=== PATIENT | male | born 1985 | race Two or more races ===

== ENCOUNTER 2022-06-19 06:39 | Inpatient (IN) | payer BC, OTHER ==
[~2022-06-19] VITALS: Ht 193 cm; Wt 155.0 kg
[2022-06-19 07:51] LABS: Eosinophils # (auto) 0 10 ^3/uL (0-0.8); Eosinophils % (auto) 0.3 % (0.0-7.0); Hemoglobin 15.4 g/dL (13.5-17.5); Monocytes # (auto) 0.6 10 ^3/uL (0-1.3); Neutrophils # (auto) 5.1 10 ^3/uL (1.6-8.6); Nucleated Red Blood Cells % 0.2 %; White Blood Cell 6.8 10^3/uL (4.4-10.8)
[2022-06-19 07:53] LABS: Basophils # (auto) 0 10 ^3/uL (0-0.2); Basophils % (auto) 0.6 % (0.0-2.0); Hematocrit 45.6 % (41.0-53.0); Mean Corpuscular Hemoglobin 37.1 pg (28.0-32.0); Mean Corpuscular Hgb Conc. 33.7 g/dL (32.0-36.0); Mean Corpuscular Volume 110.1 fL (80.0-100.0); Monocytes % (auto) 8.8 % (0.0-12.0); Neutrophils % (auto) 75.3 % (37.0-80.0); Red Blood Cells 4.14 10^6/uL (4.5-5.90)
[2022-06-19 07:58] LABS: Albumin 2.9 g/dL (3.4-5.0); Calcium 8.9 mg/dL (8.5-10.1); Potassium 3.6 mmol/L (3.5-5.1); Red Cell Distribution Width 20.3 % (11.8-14.3)
[2022-06-19] MEDS ORDERED: LACTATED RINGER'S 1,000 ML IV ONE (08:00)
[2022-06-19] MEDS ORDERED: PANTOPRAZOLE 40mg/50ML NS AE 50 ML IV ONE (08:00)
[2022-06-19] MEDS ORDERED: PANTOPRAZOLE 40 MG/10 ML VIAL INJ IV ONE (08:00)
[2022-06-19] MEDS ORDERED: cefTRIAXone 1GM/50ML D5W 50 ML IV ONE (08:00)
[2022-06-19] MEDS ORDERED: MAALOX PLUS or MAALOX 30 ML PO ONE (08:00)
[2022-06-19] MEDS ORDERED: ONDANSETRON HCL 4 MG/2 ML VIAL IV ONE (08:00)
[2022-06-19] MEDS ORDERED: LIDOCAINE VISCOUS 2% 15ML UD PO ONE (08:00)
[2022-06-19] MEDS ORDERED: FAMOTIDINE (10MG/ML) 2ML VL IV ONE ×2 (08:00→10:07)
[2022-06-19 08:01] LABS: Bilirubin, Total 2.3 mg/dL (0.2-1.0); Total Protein 6.5 g/dL (6.4-8.2)
[2022-06-19] MEDS ORDERED: DexAMETHasone SOD PHOS 10MG/1ML VIAL INJ IV ONE (08:15)
[2022-06-19] MEDS ORDERED: IPRATROPIUM BROM 0.5 MG/2.5ML INH SOL NEB ONE (08:15)
[2022-06-19] MEDS ORDERED: ALBUTEROL SULF 2.5 MG/0.5ML(0.5%) NEB SOLN NEB ONE (08:15)
[2022-06-19] MEDS ORDERED: ALBUTEROL MEDNEB 2.5 mg/3ml NEB ONE (08:45)
[2022-06-19 08:47] LABS: INR 1.13 (0.9-1.15); Partial Thromboplastin Time 29.4 sec (24.6-33.4)
[2022-06-19 08:59] LABS: Urine Bacteria NONE SEEN /hpf (None Seen); Urine Blood Negative /uL (Negative); Urine WBC <1 /hpf (0 - 3)
[2022-06-19] MEDS ORDERED: chlordiazePOXIDE HCL 25 MG CAP PO ONE (11:45)
[2022-06-19] MEDS ORDERED: LORazepam 2MG/ML-1ML VIAL IV ONE (11:45)
[2022-06-19] MEDS ORDERED: PANTOPRAZOLE IV ONE (12:37)
[2022-06-19] MEDS ORDERED: NS AE IV ONE (12:37)
[2022-06-19] MEDS ORDERED: NITROGLYCERIN 0.4 MG SL TAB SL PRN (13:15)
[2022-06-19] MEDS ORDERED: MORPHINE SULFATE INJ 2 MG/ml SYRG IV PRN (13:15)
[2022-06-19] MEDS ORDERED: FUROSEMIDE 20 MG/2 ML VIAL IV SCH (13:30)
[2022-06-19] MEDS ORDERED: FOLIC ACID 1 MG TAB PO ONE (13:30)
[2022-06-19] MEDS ORDERED: LORazepam 2MG/ML-1ML VIAL IV PRN (13:30)
[2022-06-19] MEDS ORDERED: MULTIPLE VITAMIN TAB PO ONE (13:30)
[2022-06-19] MEDS ORDERED: hydrALAZINE HCL 20 MG/ML VL IV PRN (13:45)
[2022-06-19] MEDS ORDERED: IOHEXOL 350 MG/ML 100ML IJ ONE (13:53)
[2022-06-19] MEDS: chlordiazePOXIDE HCL 25 MG CAP PO SCH ×2 (14:02→22:11)
[2022-06-19] MEDS: LACTATED RINGER'S 1,000 ML IV SCH ×2 (14:04→21:30)
[2022-06-19] MEDS: POTASSIUM CHL 10 Meq TABLET PO SCH (14:05)
[2022-06-19 14:24] LABS: Amphetamine Screen, Urine NEGATIVE (NEGATIVE); Barbiturate Scree,Urine NEGATIVE (NEGATIVE); Benzodiazephine Screen, Urine NEGATIVE (NEGATIVE); Cannabinoid Screen, Urine NEGATIVE (NEGATIVE); Cocaine Screen, Urine NEGATIVE (NEGATIVE); Opiate Scree,Urine NEGATIVE (NEGATIVE); Phencyclidine Screen, Urine NEGATIVE (NEGATIVE)
[2022-06-19 19:51] LABS: Cholesterol 193 mg/dL (< 200); Triglycerides 63 mg/dL (< 150)
[2022-06-19 19:54] LABS: HDL Cholesterol 119 mg/dL (40-59); LDL Cholesterol 67 mg/dL (< 100)
[2022-06-20] MEDS: chlordiazePOXIDE HCL 25 MG CAP PO SCH ×3 (05:44→22:55)
[2022-06-20] MEDS: LACTATED RINGER'S 1,000 ML IV SCH ×2 (05:48→10:56)
[2022-06-20 06:13] LABS: Basophils # (auto) 0 10 ^3/uL (0-0.2); Basophils % (auto) 0.2 % (0.0-2.0); Eosinophils # (auto) 0 10 ^3/uL (0-0.8); Lymphocytes # (auto) 0.7 10 ^3/uL (0.4-5.4); Monocytes # (auto) 0.8 10 ^3/uL (0-1.3); Neutrophils # (auto) 6.1 10 ^3/uL (1.6-8.6); White Blood Cell 7.6 10^3/uL (4.4-10.8)
[2022-06-20 06:14] LABS: Hematocrit 48.1 % (41.0-53.0); Hemoglobin 16.3 g/dL (13.5-17.5); Lymphocytes % (auto) 9.3 % (10.0-50.0); Mean Corpuscular Hemoglobin 37.3 pg (28.0-32.0); Mean Corpuscular Hgb Conc. 33.9 g/dL (32.0-36.0); Monocytes % (auto) 10.2 % (0.0-12.0); Neutrophils % (auto) 80.3 % (37.0-80.0); Nucleated Red Blood Cells % 0.1 %; Red Blood Cells 4.37 10^6/uL (4.5-5.90)
[2022-06-20 06:24] LABS: Red Cell Distribution Width 20.2 % (11.8-14.3)
[2022-06-20 06:32] LABS: Albumin 2.9 g/dL (3.4-5.0); Calcium 8.4 mg/dL (8.5-10.1)
[2022-06-20 06:36] LABS: BUN/Creatinine Ratio 10.4; Bilirubin, Total 2.1 mg/dL (0.2-1.0); Total Protein 6.5 g/dL (6.4-8.2)
[2022-06-20] MEDS ORDERED: LISINOPRIL 10 MG TAB PO SCH (10:00)
[2022-06-20] MEDS ORDERED: ENOXAPARIN SOD 40 MG/0.4 ML SYRINGE SC SCH (10:00)
[2022-06-20] MEDS: PANTOPRAZOLE 40 MG/10 ML VIAL INJ IV SCH ×2 (10:54→22:55)
[2022-06-20] MEDS: POTASSIUM CHL 10 Meq TABLET PO SCH (10:55)
[2022-06-20] MEDS: THIAMINE HCL 100 MG TAB PO SCH (10:55)
[2022-06-20 13:47] VITALS: BP 113/87
[2022-06-20] MEDS ORDERED: BENA10TA15 PO (14:07)
[2022-06-20] MEDS ORDERED: AML5T PO (14:07)
[2022-06-20] MEDS: SUCRALFATE 1 GM/10 ML ORAL SUSP PO SCH ×2 (19:10→22:55)
[2022-06-20 22:00] VITALS: BP 112/74
[2022-06-20] MEDS: CARVEDILOL 3.125 MG TAB PO SCH (22:54)
[2022-06-21] VITALS (8 sets, daily range): BP systolic 103–121; BP diastolic 72–90
[2022-06-21] MEDS: LACTATED RINGER'S 1,000 ML IV SCH (02:40)
[2022-06-21] MEDS: SUCRALFATE 1 GM/10 ML ORAL SUSP PO SCH ×4 (08:10→22:56)
[2022-06-21] MEDS: PANTOPRAZOLE 40 MG/10 ML VIAL INJ IV SCH ×2 (11:29→22:56)
[2022-06-21] MEDS: POTASSIUM CHL 10 Meq TABLET PO SCH (11:30)
[2022-06-21] MEDS: THIAMINE HCL 100 MG TAB PO SCH (11:30)
[2022-06-21] MEDS: chlordiazePOXIDE HCL 25 MG CAP PO SCH ×2 (11:30→22:57)
[2022-06-21] MEDS: LISINOPRIL 5 MG TAB PO SCH (11:30)
[2022-06-21] MEDS: CARVEDILOL 3.125 MG TAB PO SCH ×2 (11:31→22:57)
[2022-06-21 14:16] LABS: Hepatitis C Antibody Negative (Negative)
[2022-06-21 14:26] LABS: Hepatitis B Surface Antibody Positive (Negative)
[2022-06-21] MEDS: FUROSEMIDE 20 MG TAB PO SCH (15:03)
[2022-06-22 05:00] VITALS: BP 112/58
[2022-06-22] MEDS: SUCRALFATE 1 GM/10 ML ORAL SUSP PO SCH ×4 (06:18→23:08)
[2022-06-22] MEDS ORDERED: chlordiazePOXIDE HCL 25 MG CAP PO SCH (07:00)
[2022-06-22 08:00] VITALS: BP 133/84
[2022-06-22 09:00] VITALS: BP 133/84
[2022-06-22] MEDS: THIAMINE HCL 100 MG TAB PO SCH (09:29)
[2022-06-22] MEDS: PANTOPRAZOLE 40 MG/10 ML VIAL INJ IV SCH ×2 (09:29→23:08)
[2022-06-22] MEDS: FUROSEMIDE 20 MG TAB PO SCH (09:30)
[2022-06-22] MEDS: CARVEDILOL 3.125 MG TAB PO SCH ×2 (09:31→23:15)
[2022-06-22] MEDS: POTASSIUM CHL 10 Meq TABLET PO SCH (09:31)
[2022-06-22] MEDS: LISINOPRIL 5 MG TAB PO SCH (09:31)
[2022-06-22 13:00] VITALS: BP 105/74
[2022-06-22 16:42] VITALS: BP 113/66
[2022-06-23 00:33] VITALS: BP 138/72
[2022-06-23 04:48] VITALS: BP 124/87
[2022-06-23] MEDS: SUCRALFATE 1 GM/10 ML ORAL SUSP PO SCH ×4 (06:30→22:21)
[2022-06-23 09:00] VITALS: BP 116/79
[2022-06-23] MEDS: POTASSIUM CHL 10 Meq TABLET PO SCH (09:17)
[2022-06-23] MEDS: PANTOPRAZOLE 40 MG/10 ML VIAL INJ IV SCH ×2 (09:17→22:21)
[2022-06-23] MEDS: FOLIC ACID 1 MG TAB PO SCH (09:17)
[2022-06-23] MEDS: THIAMINE HCL 100 MG TAB PO SCH (09:18)
[2022-06-23] MEDS: LISINOPRIL 5 MG TAB PO SCH (09:26)
[2022-06-23] MEDS: FUROSEMIDE 20 MG TAB PO SCH (09:26)
[2022-06-23] MEDS: CARVEDILOL 3.125 MG TAB PO SCH ×2 (09:26→22:26)
[2022-06-23 13:00] VITALS: BP 104/68
[2022-06-23 17:00] VITALS: BP 104/70
[2022-06-23 22:00] VITALS: BP 114/76
[2022-06-24 05:00] VITALS: BP 116/82
[2022-06-24] MEDS: SUCRALFATE 1 GM/10 ML ORAL SUSP PO SCH (06:16)
[2022-06-24 09:00] VITALS: BP 113/82
[2022-06-24] MEDS: FOLIC ACID 1 MG TAB PO SCH (09:54)
[2022-06-24] MEDS: LISINOPRIL 5 MG TAB PO SCH (09:54)
[2022-06-24] MEDS: PANTOPRAZOLE 40 MG/10 ML VIAL INJ IV SCH (09:54)
[2022-06-24] MEDS: THIAMINE HCL 100 MG TAB PO SCH (09:54)
[2022-06-24] MEDS: POTASSIUM CHL 10 Meq TABLET PO SCH (09:54)
[2022-06-24] MEDS: FUROSEMIDE 20 MG TAB PO SCH (09:55)
[2022-06-24] MEDS: CARVEDILOL 3.125 MG TAB PO SCH (09:55)
[2022-06-24] MEDS ORDERED: FURO1TAB33 PO (10:08)
[2022-06-24] MEDS ORDERED: PANT40T PO (10:08)
[2022-06-24] MEDS ORDERED: FOLI1TAB6 PO (10:08)
[2022-06-24] MEDS ORDERED: CARV6.25 PO (10:08)
[2022-06-24] MEDS ORDERED: THIA100T5 PO (10:08)
[2022-06-24] MEDS ORDERED: SUCR1TAB PO (10:08)
[2022-06-24] MEDS ORDERED: LISI20TA28 PO (10:08)
[2022-06-24 10:44] VITALS: BP 128/83
[2022-06-25 12:10] LABS: Hepatitis A Total Antibody Negative (Negative)
== END 2022-06-24 11:30 | disposition home or self-care (01) | DRG 391 ==
LOC: ER 06:39 → TELE 13:13 → EAST 06-20 15:08 → TELE-WESTW 06-20 20:16
PROVIDERS: ADMIT Registered Nurse; ATTEND Nurse Practitioner Acute Care
PROC: 5A09357 Assistance with Respiratory Ventilation, Less than 24 Consecutive Hours, Continuous Positive Airway Pressure (ICD-10-PCS; principal; 2022-06-19)
DX: K21.00 Gastro-esophageal reflux disease with esophagitis, without bleeding (principal); I50.21 Acute systolic (congestive) heart failure; K92.0 Hematemesis; I42.6 Alcoholic cardiomyopathy; I42.0 Dilated cardiomyopathy; Z68.41 Body mass index [BMI] 40.0-44.9, adult; I11.0 Hypertensive heart disease with heart failure; E66.01 Morbid (severe) obesity due to excess calories; Z20.822 Contact with and (suspected) exposure to COVID-19; K76.0 Fatty (change of) liver, not elsewhere classified; Y90.1 Blood alcohol level of 20-39 mg/100 ml; F10.129 Alcohol abuse with intoxication, unspecified
CPT/HCPCS: 36415; 71045; 71260; 74177; 76705; 80053; 80061; 80307; 81001; 82977; 83036; 83690; 83735; 83880; 84443; 84484; 85025; 85610; 85730; 86704; 86706; 86708; 86803; 86850; 86900; 86901; 87340; 87426; 93005; 93306; 94640; 96365; 96366; 96374; C9113; G0378; J0696; J1100; J2405; J3490

== ENCOUNTER 2022-10-05 19:00 | Inpatient (IN) | payer BC ==
[~2022-10-05] VITALS: Ht 188 cm; Wt 150.0 kg
[~2022-10-05 19:00] MED LIST: AML5T PO; BENA10TA15 PO; CARV6.25 PO; FOLI1TAB6 PO; FURO1TAB33 PO; LISI20TA28 PO; PANT40T PO; SUCR1TAB PO; THIA100T5 PO
[2022-10-05] MEDS ORDERED: LORazepam 2MG/ML-1ML VIAL IV ONE (20:00)
[2022-10-05 20:08] LABS: Basophils # (auto) 0.1 10 ^3/uL (0-0.2); Basophils % (auto) 1.3 % (0.0-2.0); Eosinophils # (auto) 0.1 10 ^3/uL (0-0.8); Eosinophils % (auto) 1.8 % (0.0-7.0); Hematocrit 44.9 % (41.0-53.0); Hemoglobin 15.7 g/dL (13.5-17.5); Lymphocytes # (auto) 1.4 10 ^3/uL (0.4-5.4); Mean Corpuscular Hemoglobin 33.7 pg (28.0-32.0); Mean Corpuscular Volume 96.2 fL (80.0-100.0); Monocytes # (auto) 0.9 10 ^3/uL (0-1.3); Neutrophils % (auto) 61.9 % (37.0-80.0); Nucleated Red Blood Cells % 0.1 %; Red Blood Cells 4.67 10^6/uL (4.5-5.90); Red Cell Distribution Width 17.6 % (11.8-14.3); White Blood Cell 6.4 10^3/uL (4.4-10.8)
[2022-10-05 20:22] LABS: INR 1.01 (0.9-1.15); Partial Thromboplastin Time 27.3 sec (24.6-33.4)
[2022-10-05 20:32] LABS: Albumin 3.5 g/dL (3.4-5.0); Anion Gap 7 (5-15); BUN/Creatinine Ratio 15.5 (10.0-20.0); Blood Urea Nitrogen 16 mg/dL (7-18); Calcium 9.2 mg/dL (8.5-10.1); Carbon Dioxide 28 mmol/L (21-32); Chloride 104 mmol/L (98-107); GFR African American 106 mL/min; GFR Non-African American 87 mL/min; Glucose 88 mg/dL (74-106); Magnesium 1.6 mg/dL (1.6-2.6); Potassium 3.1 mmol/L (3.5-5.1); Sodium 139 mmol/L (136-145)
[2022-10-05 20:35] LABS: Alanine Aminotransferase 191 U/L (16-61); Alkaline Phosphatase 74 U/L (45-117); Aspartate Aminotransferase 237 U/L (15-37); Blood Alcohol < 3.0 mg/dL (0-5); Total Protein 7.8 g/dL (6.4-8.2)
[2022-10-05] MEDS ORDERED: POTASSIUM EFFERVESENT TAB 25 MEQ PO ONE (21:15)
[2022-10-05] MEDS ORDERED: SODIUM CHLORIDE 0.9% 4,500 ML IV ONE (21:45)
[2022-10-05] MEDS ORDERED: SODIUM CHLORIDE 0.9% 1,000 ML IV SCH (23:15)
[2022-10-05] MEDS ORDERED: HYDROcodone-ACET 5/325MG TAB PO PRN (23:15)
[2022-10-05] MEDS ORDERED: IBUPROFEN 600 MG TAB PO PRN (23:15)
[2022-10-05] MEDS ORDERED: DOCUSATE SOD 100 MG CAP PO PRN (23:15)
[2022-10-05] MEDS ORDERED: MORPHINE SULFATE INJ 2 MG/ml SYRG IV PRN (23:15)
[2022-10-05] MEDS ORDERED: ONDANSETRON HCL 4 MG/2 ML VIAL IV PRN (23:15)
[2022-10-05] MEDS ORDERED: hydrALAZINE HCL 20 MG/ML VL IV PRN (23:15)
[2022-10-06] MEDS ORDERED: MORPHINE SULFATE INJ 2 MG/ml SYRG IV PRN
[2022-10-06] MEDS ORDERED: NITROGLYCERIN 0.4 MG SL TAB SL PRN
[2022-10-06 03:01] LABS: Urine Bacteria NONE SEEN /hpf (None Seen); Urine Blood Negative /uL (Negative); Urine Hyaline Cast FEW /lpf (0 - 2); Urine WBC <1 /hpf (0 - 3)
[2022-10-06 03:07] LABS: Alcohol, Urine < 3.0 mg/dL (0-10)
[2022-10-06] MEDS ORDERED: chlordiazePOXIDE HCL 5 MG CAP PO PRN (03:15)
[2022-10-06] MEDS ORDERED: chlordiazePOXIDE HCL 25 MG CAP PO ONE ×2 (03:15→06:00)
[2022-10-06 03:18] LABS: Amphetamine Screen, Urine NEGATIVE (NEGATIVE); Barbiturate Scree,Urine NEGATIVE (NEGATIVE); Benzodiazephine Screen, Urine NEGATIVE (NEGATIVE); Cannabinoid Screen, Urine POSITIVE (NEGATIVE); Cocaine Screen, Urine NEGATIVE (NEGATIVE); Opiate Scree,Urine NEGATIVE (NEGATIVE); Phencyclidine Screen, Urine NEGATIVE (NEGATIVE)
[2022-10-06] MEDS ORDERED: MVI in SODIUM CHLORIDE 0.9% 1,010 ML ONE (03:19)
[2022-10-06] MEDS: LORazepam 2MG/ML-1ML VIAL IV PRN ×2 (03:34→11:13)
[2022-10-06] MEDS ORDERED: ONDANSETRON HCL 4 MG/2 ML VIAL IV ONE (06:00)
[2022-10-06] MEDS ORDERED: LORazepam 2MG/ML-1ML VIAL IV ONE (06:00)
[2022-10-06] MEDS ORDERED: LORazepam 2MG/ML-1ML VIAL IV PRN (06:00)
[2022-10-06 06:09] LABS: Potassium 3.9 mmol/L (3.5-5.1)
[2022-10-06 06:18] LABS: Albumin 3.7 g/dL (3.4-5.0); BUN/Creatinine Ratio 13.6 (10.0-20.0); Calcium 9.2 mg/dL (8.5-10.1); Total Protein 8.1 g/dL (6.4-8.2)
[2022-10-06] MEDS: LORazepam 0.5 MG TAB PO SCH ×2 (06:20→09:31)
[2022-10-06 06:27] LABS: Basophils # (auto) 0.1 10 ^3/uL (0-0.2); Eosinophils # (auto) 0.1 10 ^3/uL (0-0.8); Lymphocytes # (auto) 1.8 10 ^3/uL (0.4-5.4); Monocytes # (auto) 0.7 10 ^3/uL (0-1.3); Neutrophils # (auto) 3.4 10 ^3/uL (1.6-8.6)
[2022-10-06 06:32] LABS: Basophils % (auto) 1.1 % (0.0-2.0); Eosinophils % (auto) 1.6 % (0.0-7.0); Hemoglobin 14.8 g/dL (13.5-17.5); Mean Corpuscular Hemoglobin 33.9 pg (28.0-32.0); Mean Corpuscular Hgb Conc. 35.3 g/dL (32.0-36.0); Monocytes % (auto) 11.1 % (0.0-12.0); Neutrophils % (auto) 56.2 % (37.0-80.0); Nucleated Red Blood Cells % 0.4 %; Red Blood Cells 4.38 10^6/uL (4.5-5.90); Red Cell Distribution Width 17.6 % (11.8-14.3)
[2022-10-06] MEDS ORDERED: amLODIPine BESYLATE 5 MG TAB PO SCH (10:00)
[2022-10-06] MEDS ORDERED: FAMOTIDINE (10MG/ML) 2ML VL IV SCH (10:00)
[2022-10-06] MEDS ORDERED: FOLIC ACID 1 MG TAB PO SCH (10:00)
[2022-10-06] MEDS ORDERED: ASPirin 81 mg TAB PO SCH (10:00)
[2022-10-06] MEDS ORDERED: THIAMINE HCL 100 MG TAB PO SCH (10:00)
[2022-10-06] MEDS ORDERED: MULTIPLE VITAMIN TAB PO SCH (10:00)
[2022-10-06] MEDS ORDERED: POTA10TA51 PO (11:21)
[2022-10-06] MEDS ORDERED: SACU1TAB PO (11:21)
[2022-10-06 11:35] VITALS: BP 115/58
[2022-10-06] MEDS ORDERED: FOLIC ACID 1 MG, MULTIPLE VITAMIN 10 ML, MAGNESIUM SULF SDV 50% 8 MEQ, THIAMINE INJ 100... INJ SCH ×5 (12:00)
[2022-10-06] MEDS ORDERED: CYCL-614 PO (16:18)
[2022-10-06] MEDS ORDERED: ATORVASTATIN 20 MG TAB PO SCH (22:00)
== END 2022-10-06 14:13 | disposition home or self-care (01) | DRG 313 ==
LOC: EDBD 19:00 → ER 19:00 → TELE 23:56
PROVIDERS: ADMIT Nurse Practitioner Family; ATTEND Internal Medicine
DX: R07.9 Chest pain, unspecified (principal); F10.231 Alcohol dependence with withdrawal delirium; I42.6 Alcoholic cardiomyopathy; E87.6 Hypokalemia; K21.9 Gastro-esophageal reflux disease without esophagitis; I10 Essential (primary) hypertension
CPT/HCPCS: 36415; 71045; 80053; 80307; 80320; 81001; 83735; 83880; 84484; 85025; 85610; 85730; 96361; 96374; G0378; J2405; J3490

== ENCOUNTER 2023-04-22 01:52 | Inpatient (IN) | payer BC ==
[2023-04-22] VITALS (7 sets, daily range): BP systolic 108–145; BP diastolic 51–85; PULSE 94–123; RESP 16–30; TEMP 97.8–99.6; O2SAT 90–96
[~2023-04-22] VITALS: Ht 188 cm; Wt 140.8 kg
[~2023-04-22 01:52] MED LIST changes: -AML5T PO; -BENA10TA15 PO; +CYCL-614 PO; +FOLI-119 PO; -FOLI1TAB6 PO; -LISI20TA28 PO; +LISI20TA56 PO; +POTA10TA51 PO; +SACU1TAB PO
[2023-04-22] MEDS ORDERED: IOHEXOL 350 MG/ML 100ML IJ ONE (02:27)
[2023-04-22 02:30] LABS: Basophils # (auto) 0.1 10 ^3/uL (0-0.2); Eosinophils # (auto) 0.1 10 ^3/uL (0-0.8); Monocytes # (auto) 0.7 10 ^3/uL (0-1.3); Neutrophils # (auto) 5.2 10 ^3/uL (1.6-8.6); Red Blood Cells 4.26 10^6/uL (4.5-5.90)
[2023-04-22 02:31] LABS: Basophils % (auto) 1.3 % (0.0-2.0); Eosinophils % (auto) 1.3 % (0.0-7.0); Hematocrit 46.6 % (41.0-53.0); Hemoglobin 15.7 g/dL (13.5-17.5); Lymphocytes # (auto) 1.9 10 ^3/uL (0.4-5.4); Lymphocytes % (auto) 23.7 % (10.0-50.0); Mean Corpuscular Hemoglobin 36.9 pg (28.0-32.0); Mean Corpuscular Hgb Conc. 33.7 g/dL (32.0-36.0); Mean Corpuscular Volume 109.4 fL (80.0-100.0); Monocytes % (auto) 8.2 % (0.0-12.0); Neutrophils % (auto) 65.5 % (37.0-80.0); Red Cell Distribution Width 14.8 % (11.8-14.3)
[2023-04-22 02:44] LABS: Alanine Aminotransferase 53 U/L (7-40); Albumin 4.4 g/dL (3.2-4.8); Alkaline Phosphatase 87 U/L (46-116); Anion Gap 11 (5-15); Aspartate Aminotransferase 133 U/L (13-40); BUN/Creatinine Ratio 7.7 (10.0-20.0); Bilirubin, Total 0.8 mg/dL (0.2-1.0); Blood Urea Nitrogen 6 mg/dL (9-23); Calcium 8.4 mg/dL (8.7-10.4); Carbon Dioxide 27 mmol/L (20-30); Chloride 103 mmol/L (98-107); Glucose 116 mg/dL (74-106); Magnesium 1.7 mg/dL (1.6-2.6); Potassium 3.9 mmol/L (3.5-5.1); Sodium 141 mmol/L (136-145); Total Protein 7.4 g/dL (5.7-8.2)
[2023-04-22 03:06] LABS: INR 1.07 (0.9-1.15); Partial Thromboplastin Time 28.5 SEC (24.5-34.5); Prothrombin Time 11.2 sec (9.3-11.8)
[2023-04-22] MEDS ORDERED: NITROGLYCERIN 0.2MG/HR TOPICAL PATCH TD ONE (04:30)
[2023-04-22] MEDS ORDERED: ASPirin 81 mg TAB PO ONE (04:30)
[2023-04-22] MEDS ORDERED: MORPHINE SULFATE 4 MG/ML SYR/VIAL IV PRN (04:30)
[2023-04-22] MEDS ORDERED: PANTOPRAZOLE 40 MG/10 ML VIAL INJ IV ONE (04:30)
[2023-04-22] MEDS ORDERED: ONDANSETRON HCL 4 MG/2 ML VIAL IV ONE (04:30)
[2023-04-22 04:52] LABS: COVID19 ANTIGEN SOFIA FIA NEGATIVE (NEGATIVE); Rapid Influenza A Negative (Negative); Rapid Influenza B Negative (Negative)
[2023-04-22 04:59] LABS: Urine Bacteria NONE SEEN /hpf (None Seen); Urine Blood Negative /uL (Negative); Urine Clarity Clear (Clear); Urine Color Yellow (Yellow); Urine Hyaline Cast MOD /lpf (0 - 2); Urine Mucus FEW (None Seen); Urine Protein, UAD 3+ (Negative); Urine WBC 3 /hpf (0 - 3)
[2023-04-22] MEDS ORDERED: hydrALAZINE HCL 20 MG/ML VL IV PRN (05:00)
[2023-04-22] MEDS ORDERED: ONDANSETRON HCL 4 MG/2 ML VIAL IV PRN (05:00)
[2023-04-22] MEDS ORDERED: IBUPROFEN 600 MG TAB PO PRN (05:00)
[2023-04-22] MEDS ORDERED: DOCUSATE SOD 100 MG CAP PO PRN (05:00)
[2023-04-22 05:03] LABS: Amphetamine Screen, Urine Neg (NEGATIVE); Barbiturate Scree,Urine Neg (NEGATIVE); Benzodiazephine Screen, Urine Neg (NEGATIVE); Cannabinoid Screen, Urine Pos (NEGATIVE); Cocaine Screen, Urine Neg (NEGATIVE); Opiate Scree,Urine Neg (NEGATIVE); Phencyclidine Screen, Urine Neg (NEGATIVE)
[2023-04-22] MEDS ORDERED: FUROSEMIDE 20 MG/2 ML VIAL IV SCH ×3 (06:00→18:00)
[2023-04-22] MEDS ORDERED: ALBUTEROL SULF 2.5 MG/0.5ML(0.5%) NEB SOLN NEB PRN (06:00)
[2023-04-22] MEDS ORDERED: MORPHINE SULFATE INJ 2 MG/ml SYRG IV PRN (06:00)
[2023-04-22] MEDS ORDERED: NITROGLYCERIN 0.4 MG SL TAB SL PRN (06:00)
[2023-04-22 06:26] LABS: Alanine Aminotransferase 50 U/L (7-40); Albumin 4.3 g/dL (3.2-4.8); Alkaline Phosphatase 80 U/L (46-116); Anion Gap 11 (5-15); Aspartate Aminotransferase 115 U/L (13-40); Bilirubin, Total 0.7 mg/dL (0.2-1.0); Calcium 8.5 mg/dL (8.5-10.1); Carbon Dioxide 26 mmol/L (20-30); Chloride 104 mmol/L (98-107); Glucose 105 mg/dL (74-106); Potassium 3.9 mmol/L (3.5-5.1); Sodium 141 mmol/L (136-145); Total Protein 7.3 g/dL (5.7-8.2)
[2023-04-22 06:31] LABS: Blood Urea Nitrogen < 5 mg/dL (9-23)
[2023-04-22] MEDS ORDERED: CARVEDILOL 3.125 MG TAB PO SCH ×2 (10:00→22:00)
[2023-04-22] MEDS ORDERED: PANTOPRAZOLE 40 MG/10 ML VIAL INJ IV SCH (10:00)
[2023-04-22] MEDS ORDERED: ASPirin 81 mg TAB PO SCH (10:00)
[2023-04-22] MEDS ORDERED: DIGOXIN (250MCG/ML) 2 ML AMPULE IV ONE (10:30)
[2023-04-22] MEDS ORDERED: chlordiazePOXIDE HCL 5 MG CAP PO PRN (10:30)
[2023-04-22] MEDS ORDERED: MULTIPLE VITAMIN TAB PO ONE (10:30)
[2023-04-22] MEDS: PANTOPRAZOLE 40mg/50ML NS AE 50 ML IV SCH ×2 (15:16→18:23)
[2023-04-22 16:18] LABS: Hematocrit 44.2 % (41.0-53.0); Hemoglobin 14.8 g/dL (13.5-17.5)
[2023-04-22] MEDS ORDERED: LORazepam 2MG/ML-1ML VIAL IV PRN (17:15)
[2023-04-22] MEDS: ATORVASTATIN 20 MG TAB PO SCH (23:14)
[2023-04-23] VITALS (9 sets, daily range): BP systolic 120–136; BP diastolic 78–95; PULSE 71–103; RESP 17–30; TEMP 98.1–99.8; O2SAT 93–99
[2023-04-23] MEDS: PANTOPRAZOLE 40mg/50ML NS AE 50 ML IV SCH ×2 (00:14→06:07)
[2023-04-23] MEDS ORDERED: TEMAZEPAM 15 MG CAP PO PRN (01:15)
[2023-04-23] MEDS ORDERED: FUROSEMIDE 20 MG/2 ML VIAL IV SCH (06:00)
[2023-04-23 06:26] LABS: Basophils # (auto) 0.1 10 ^3/uL (0-0.2); Eosinophils # (auto) 0 10 ^3/uL (0-0.8); Eosinophils % (auto) 0.2 % (0.0-7.0); Monocytes # (auto) 0.6 10 ^3/uL (0-1.3)
[2023-04-23 06:28] LABS: Basophils % (auto) 0.6 % (0.0-2.0); Hematocrit 44.9 % (41.0-53.0); Hemoglobin 15.3 g/dL (13.5-17.5); Lymphocytes # (auto) 0.9 10 ^3/uL (0.4-5.4); Mean Corpuscular Hgb Conc. 34.1 g/dL (32.0-36.0); Mean Corpuscular Volume 108.4 fL (80.0-100.0); Monocytes % (auto) 7.2 % (0.0-12.0); Nucleated Red Blood Cells % 0.9 %; Red Blood Cells 4.14 10^6/uL (4.5-5.90); Red Cell Distribution Width 14.8 % (11.8-14.3); White Blood Cell 8.6 10^3/uL (4.4-10.8)
[2023-04-23 06:32] LABS: Alanine Aminotransferase 36 U/L (7-40); Albumin 4.5 g/dL (3.2-4.8); Alkaline Phosphatase 80 U/L (46-116); Anion Gap 6 (5-15); Aspartate Aminotransferase 66 U/L (13-40); BUN/Creatinine Ratio 10.8 (10.0-20.0); Bilirubin, Total 2.1 mg/dL (0.2-1.0); Blood Urea Nitrogen 10 mg/dL (9-23); Calcium 9.2 mg/dL (8.7-10.4); Chloride 96 mmol/L (98-107); Glucose 97 mg/dL (74-106); Magnesium 1.1 mg/dL (1.6-2.6); Potassium 4.4 mmol/L (3.5-5.1); Sodium 139 mmol/L (136-145); Total Protein 7.8 g/dL (5.7-8.2)
[2023-04-23 06:52] LABS: Carbon Dioxide 37 mmol/L (20-30)
[2023-04-23] MEDS ORDERED: MULTIPLE VITAMIN TAB PO SCH (10:00)
[2023-04-23] MEDS ORDERED: FOLIC ACID 1 MG, MULTIPLE VITAMIN 10 ML, MAGNESIUM SULF SDV 50% 8 MEQ, THIAMINE INJ 100... INJ SCH ×5 (12:00)
[2023-04-23] MEDS: THIAMINE 100mg/ml INJ (200mg/2ml VIAL) IV SCH (12:27)
[2023-04-23] MEDS: chlordiazePOXIDE HCL 5 MG CAP PO SCH ×3 (12:28→22:00)
[2023-04-23] MEDS: B-COMPLEX W/ C & FOLIC ACID(NEPHROVITE TAB) PO SCH (12:28)
[2023-04-23] MEDS: ATORVASTATIN 20 MG TAB PO SCH (22:00)
[2023-04-23] MEDS: CARVEDILOL 3.125 MG TAB PO SCH (22:01)
[2023-04-23] MEDS: SACUBITRIL-VALSARTAN 24mg/26mg TAB PO SCH (22:17)
[2023-04-24] VITALS (7 sets, daily range): BP systolic 106–144; BP diastolic 68–89; PULSE 72–102; RESP 18–20; TEMP 98–98.4; O2SAT 95–99
[2023-04-24] MEDS: chlordiazePOXIDE HCL 5 MG CAP PO SCH ×2 (06:04→12:19)
[2023-04-24 07:22] LABS: Eosinophils # (auto) 0.1 10 ^3/uL (0-0.8); Hemoglobin 15.9 g/dL (13.5-17.5); Lymphocytes # (auto) 1.1 10 ^3/uL (0.4-5.4); Lymphocytes % (auto) 13.2 % (10.0-50.0); Monocytes # (auto) 0.7 10 ^3/uL (0-1.3)
[2023-04-24 07:24] LABS: Basophils # (auto) 0 10 ^3/uL (0-0.2); Basophils % (auto) 0.6 % (0.0-2.0); Eosinophils % (auto) 0.8 % (0.0-7.0); Hematocrit 46.3 % (41.0-53.0); Mean Corpuscular Hgb Conc. 34.3 g/dL (32.0-36.0); Mean Corpuscular Volume 107.9 fL (80.0-100.0); Monocytes % (auto) 9.2 % (0.0-12.0); Neutrophils # (auto) 6.2 10 ^3/uL (1.6-8.6); Neutrophils % (auto) 76.2 % (37.0-80.0); Nucleated Red Blood Cells % 0.2 %; Red Blood Cells 4.29 10^6/uL (4.5-5.90); Red Cell Distribution Width 14.3 % (11.8-14.3); White Blood Cell 8.1 10^3/uL (4.4-10.8)
[2023-04-24] MEDS ORDERED: PANTOPRAZOLE 40 MG/10 ML VIAL INJ IV SCH (10:00)
[2023-04-24] MEDS ORDERED: FUROSEMIDE 20 MG/2 ML VIAL IV SCH (10:00)
[2023-04-24] MEDS: CARVEDILOL 3.125 MG TAB PO SCH (11:25)
[2023-04-24] MEDS: B-COMPLEX W/ C & FOLIC ACID(NEPHROVITE TAB) PO SCH (11:25)
[2023-04-24] MEDS: THIAMINE 100mg/ml INJ (200mg/2ml VIAL) IV SCH (11:34)
[2023-04-24] MEDS: SACUBITRIL-VALSARTAN 24mg/26mg TAB PO SCH (12:20)
== END 2023-04-24 16:30 | disposition home or self-care (01) | DRG 291 ==
LOC: ER 01:52 → EDBD 01:52 → TELE 06:03 → TELE-CENTR 22:32
PROVIDERS: ADMIT Nurse Practitioner Family; ATTEND Nurse Practitioner Acute Care
DX: I11.0 Hypertensive heart disease with heart failure (principal); I50.43 Acute on chronic combined systolic (congestive) and diastolic (congestive) heart failure; J96.01 Acute respiratory failure with hypoxia; F10.239 Alcohol dependence with withdrawal, unspecified; I42.6 Alcoholic cardiomyopathy; F10.20 Alcohol dependence, uncomplicated; E66.01 Morbid (severe) obesity due to excess calories; Z20.822 Contact with and (suspected) exposure to COVID-19; D69.6 Thrombocytopenia, unspecified; F10.229 Alcohol dependence with intoxication, unspecified; Y90.8 Blood alcohol level of 240 mg/100 ml or more; Z68.39 Body mass index [BMI] 39.0-39.9, adult; Z87.11 Personal history of peptic ulcer disease
CPT/HCPCS: 36415; 71045; 71275; 80053; 80307; 80320; 81001; 83735; 83880; 84484; 85014; 85018; 85025; 85610; 85730; 87426; 87804; 93005; 93306; 94640; 96374; 96375; 99291; C9113; G0378; J2405

== ENCOUNTER 2024-09-24 05:12 | Inpatient (IN) | payer BC ==
[~2024-09-24] VITALS: Ht 188 cm; Wt 166.0 kg
[~2024-09-24 05:12] MED LIST changes: -CARV6.25 PO; +CARV6.2517 PO; +POTA-36 PO; -POTA10TA51 PO
[2024-09-24 06:46] LABS: Basophils # (auto) 0.1 10 ^3/uL (0-0.2); Basophils % (auto) 0.9 % (0.0-2.0); Eosinophils # (auto) 0 10 ^3/uL (0-0.8); Eosinophils % (auto) 0.5 % (0.0-7.0); Hematocrit 36.9 % (41.0-53.0); Hemoglobin 12.3 g/dL (13.5-17.5); Lymphocytes # (auto) 1.2 10 ^3/uL (0.4-5.4); Lymphocytes % (auto) 19.4 % (10.0-50.0); Mean Corpuscular Hemoglobin 32.3 pg (28.0-32.0); Mean Corpuscular Hgb Conc. 33.3 g/dL (32.0-36.0); Mean Corpuscular Volume 97.1 fL (80.0-100.0); Monocytes # (auto) 0.6 10 ^3/uL (0-1.3); Monocytes % (auto) 9.3 % (0.0-12.0); Neutrophils # (auto) 4.5 10 ^3/uL (1.6-8.6); Neutrophils % (auto) 69.9 % (37.0-80.0); Nucleated Red Blood Cells % 0.2 %; Platelet Count (auto) 197 10^3/uL (140-450); White Blood Cell 6.4 10^3/uL (4.4-10.8)
[2024-09-24 06:59] LABS: Sodium 137 mmol/L (136-145)
[2024-09-24 07:00] LABS: Anion Gap 11 (5-15); Carbon Dioxide 29 mmol/L (20-31)
[2024-09-24 07:01] LABS: Calcium 8.8 mg/dL (8.7-10.4)
[2024-09-24 07:03] LABS: Chloride 97 mmol/L (98-107); Potassium 3.2 mmol/L (3.5-5.1)
[2024-09-24 07:05] LABS: Glucose 104 mg/dL (74-106)
[2024-09-24 07:06] LABS: BUN/Creatinine Ratio 16.3 (10.0-20.0); Blood Urea Nitrogen 23 mg/dL (9-23)
--- NOTE | 2024-09-24 07:07 | DVH ---
EXAM: XR Chest, 1 View CLINICAL INDICATION: sob TECHNIQUE: Frontal view of the chest. COMPARISON: None FINDINGS: LUNGS AND PLEURAL SPACES: Unremarkable. No consolidation. No pneumothorax. HEART: Cardiomegaly without overt failure. MEDIASTINUM: Unremarkable. Normal mediastinal contour. BONES/JOINTS: Unremarkable. No acute fracture. OTHER FINDINGS: . IMPRESSION: Cardiomegaly without overt failure.
--- NOTE | 2024-09-24 07:40 | ED.PDOC ---
History of Present Illness HPI Comments 39-year-old male presents to the ER by prior history of hypertension and the chief complain of SOB. Patient reports that he has been unable to sleep due from having shortness a breath, and the for the past two weeks his bottom half of the body has been swollen. Patient then he has been coughing up blood s ometimes. Denies chills, fever, N/V/D, CP. No other associated symptoms, modifiers, recent injuries or sick contacts present at this time. Chief Complaint: Shortness of Breath Time Seen by MD: 07:25 Reviewed Notes: Nurses Notes, Medications, Allergies Allergies: Coded Allergies: NO KNOWN ALLERGIES (Unverified , 06/19/22) Home Meds Active Scripts Cyclobenzaprine HCl (Cyclobenzaprine Hydrochlo) 5 Mg Tab, 5 MG PO QHSP PRN for 5 Days, #5 TAB Prov:BRENDA OJEDA DO 10/06/22 Lisinopril (Lisinopril) 20 Mg Tab, 1 TAB PO DAILY, #90 TAB 3 Refills Prov:JURGEN MI MD 06/24/22 Carvedilol (Coreg) 6.25 Mg Tab, 1 TAB PO BID, #180 TAB 3 Refills Prov:JURGEN MI MD 06/24/22 Furosemide (Lasix) 20 Mg Tb, 1 TAB PO DAILY, #90 TAB 1 Refill Prov:JURGEN MI MD 06/24/22 Sucralfate (Sucralfate) 1 Gm Tab, 1 GM PO QID, #120 TAB Prov:JURGEN MI MD 06/24/22 Pantoprazole Sodium Sesquihydr (Pantoprazole Sodium) 40 Mg Tab, 40 MG PO BID, #60 TAB Prov:JURGEN MI MD 06/24/22 Folic Acid (Folic Acid) 1 Mg Tab, 1 MG PO DAILY, #30 TAB Prov:JURGEN MI MD 06/24/22 Thiamine Hcl (Thiamine Hcl) 100 Mg Tab, 1 TAB PO DAILY, #30 TAB Prov:JURGEN MI MD 06/24/22 Reported Medications Sacubitril-Valsartan (Entresto 24-26 mg) 1 Tab Tab, 1 TAB PO, TAB 10/06/22 Potassium Chloride (POTASSIUM CHLORIDE CR) 10 Meq Tb, 1 TAB PO DAILY, #30 TAB 5 Refills 10/06/22 Information Source: Patient Mode of Arrival: Wheelchair Severity: Moderate Timing: Weeks Duration: Since onset Prehospital treatment: None Past Medical History PAST MEDICAL HISTORY: HTN Surgical History: Denies all surgeries Family History Family History: Reviewed,noncontributory to illness, Unknown Social History Smoker: Unknown Alcohol: Unknown Drugs: Unknown Lives In: Home Constitutional: denies: chills, diaphoresis, fatigue, fever, malaise, sweats, weakness, others EENTM: denies: blurred vision, double vision, ear bleeding, ear discharge, ear drainage, ear pain, ear ringing, eye pain, eye redness, hearing loss, mouth pain, mouth swelling, nasal discharge, nose bleeding, nose congestion, nose pain, photophobia, tearing, throat pain, throat swelling, voice changes, others Respiratory: reports: cough (With a blood), SOB at rest (While sleeping), shortness of breath; denies: hemoptysis, orthopnea, SOB with excertion, stridor, wheezing, others Cardiovascular: denies: chest pain, dizzy spells, diaphoresis, Dyspnea on exertion, edema, irregular heart beat, left arm pain, lightheadedness, palpitations, PND, syncope, others Gastrointestinal: denies: abdomen distended, abdominal pain, blood streaked bowels, constipated, diarrhea, dysphagia, difficulty swallowing, hematemesis, melena, nausea, poor appetite, poor fluid intake, rectal bleeding, rectal pain, vomiting, others Genitourinary: denies: burning, dysuria, flank pain, frequency, hematuria, incontinence, penile discharge, penile sore, pain, testicle pain, testicle swelling, urgency, others Neurological: denies: dizziness, fainting, headache, left sided numbness, left sided weakness, numbness, paresthesia, pre-existing deficit, right sided numbness, right sided weakness, seizure, speech problems, tingling, tremors, weakness, others Musculoskeletal: denies: back pain, gout, joint pain, joint swelling, muscle pain, muscle stiffness, neck pain, others Integumetry: denies: bruises, change in color, change in hair/nails, dryness, laceration, lesions, lumps, rash, wounds, others Allergic/Immunocompromised: denies: Difficulty Healing, Frequent Infections, Hives, Itching, others Hematologic/Lymphatic: denies: anemia, blood clots, easy bleeding, easy bruising, swollen glands, others Endocrine: denies: excessive hunger, excessive sweating, excessive thirst, excessive urination, flushing, intolerance to cold, intolerance to heat, unexplained weight gain, unexplained weight loss, others Psychiatric: denies: anxiety, bipolar disorder, depression, hopeless, panic disorder, schizophrenia, sleepless, suicidal, others All Other Systems: Reviewed and Negative Physical Exam Exam Comments 2+ Pitting edema lower extremity General Appearance: No Apparent Distress, Normal HEENT: Normal ENT Inspection, Pharynx Normal, TMs Normal Neck: Full Range of Motion, Non-Tender, Normal, Normal Inspection Respiratory: Chest Non-Tender, Lungs Clear, No Accessory Muscle Use, No Respiratory Distress, Normal Breath Sounds Cardiovascular: No Edema, No JVD, No Murmur, No Gallop, Normal Peripheral Pulses, Regular Rate/Rhythm Breast Exam: Deferred Gastrointestinal: No Organomegaly, Non Tender, No Pulsatile Mass, Normal Bowel Sounds, Soft Genitalia: Deferred Pelvic: Deferred Rectal: Deferred Extremities: No calf tenderness, Normal capillary refill, Normal inspection, Normal range of motion, Non-tender, No pedal edema Musculoskeletal : Apperance: Normal Neurologic: Alert, 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 Was a procedure done?: No Differential Dx Considerations may include: CHF, ACS, viral syndrome, pneumonia X-Ray, Labs, Meds, VS Vital Signs Date Time Temp Pulse Resp B/P (MAP) Pulse Ox O2 Delivery O2 Flow Rate FiO2 09/24/24 05:19 98.1 88 18 103/62 (76) 97 98.1 Lab Test 09/24/24 07:30 09/24/24 06:31 Range/Units Troponin I High Sensitivity 22 26 </=54 ng/L White Blood Count 6.4 4.4-10.8 10^3/uL Red Blood Count 3.80 L 4.5-5.90 10^6/uL Hemoglobin 12.3 L 13.5-17.5 g/dL Hematocrit 36.9 L 41.0-53.0 % Mean Corpuscular Volume 97.1 80.0-100.0 fL Mean Corpuscular Hemoglobin 32.3 H 28.0-32.0 pg Mean Corpuscular Hemoglobin Concent 33.3 32.0-36.0 g/dL Red Cell Distribution Width 18.0 H 11.8-14.3 % Platelet Count 197 140-450 10^3/uL Mean Platelet Volume 9.6 6.9-10.8 fL Neutrophils (%) (Auto) 69.9 37.0-80.0 % Lymphocytes (%) (Auto) 19.4 10.0-50.0 % Monocytes (%) (Auto) 9.3 0.0-12.0 % Eosinophils (%) (Auto) 0.5 0.0-7.0 % Basophils (%) (Auto) 0.9 0.0-2.0 % Neutrophils # (Auto) 4.5 1.6-8.6 10 ^3/uL Lymphocytes # (Auto) 1.2 0.4-5.4 10 ^3/uL Monocytes # (Auto) 0.6 0-1.3 10 ^3/uL Eosinophils # (Auto) 0 0-0.8 10 ^3/uL Basophils # (Auto) 0.1 0-0.2 10 ^3/uL Nucleated Red Blood Cells 0.2 % Sodium Level 137 136-145 mmol/L Potassium Level 3.2 L 3.5-5.1 mmol/L Chloride Level 97 L 98-107 mmol/L Carbon Dioxide Level 29 20-31 mmol/L Anion Gap 11 5-15 Blood Urea Nitrogen 23 9-23 mg/dL Creatinine 1.41 H 0.700-1.30 mg/dL Glomerular Filtration Rate Calc 66 >90 mL/min BUN/Creatinine Ratio 16.3 10.0-20.0 Serum Glucose 104 74-106 mg/dL Calcium Level 8.8 8.7-10.4 mg/dL B-Type Natriuretic Peptide 1644.25 0-100 pg/mL [address] [address] Ph: [phone] DIAGNOSTIC IMAGING Diagnostic Imaging Report : [id number] Signed PATIENT: SRI ESCOBAR ACCT: [id number] UNIT: [id number] : 1985 LOC: ER ROOM / BED: / AGE / SEX: 39 / M ADM STATUS: REG ER SERVICE [id number] ORDERING PHYSICIAN: KAMALA BRODY MD PROCEDURE(s): CXR2 - CHEST TWO VIEWS ROUTINE REASON: sob ORDER NUMBER(s): [id number], ACCESSION NUMBER(s): [id number] EXAM: XR Chest, 1 View CLINICAL INDICATION: sob TECHNIQUE: Frontal view of the chest. COMPARISON: None FINDINGS: LUNGS AND PLEURAL SPACES: Unremarkable. No consolidation. No pneumothorax. HEART: Cardiomegaly without overt failure. MEDIASTINUM: Unremarkable. Normal mediastinal contour. BONES/JOINTS: Unremarkable. No acute fracture. OTHER FINDINGS: . IMPRESSION: Cardiomegaly without overt failure. Time of 1ST Reevaluation: 07:55 Reevaluation 1ST: Unchanged Patient Education/Counseling: Diagnosis, Treatment, Prognosis Family Education/Counseling: No Family Present Departure 1 Departure Time of Disposition: 08:31 (Patient presented with shortness of breath that was concerning for possible STEMI, ACS, PE, Pneumonia, Muscle Strain, COPD, acute on chronic systolic dysfunction. Data: 1. I ordered and reviewed the result of at least 3 labs including a CBC, BMP, and Troponin. 2. I independently interpreted the following tests: EKG which shows sinus rhythm and Chest X-ray which shows pulmonary vascular congestion.Risk:This patient has a high risk of morbidity due to further diagnostic testing or treatment and may suffer from an acute cardiac or respiratory disorder. Workup reveals acute on chronic systolic dysfunction and patient should be admitted for further workup, IV diuresis, and possible expert consultation. ) Impression: Primary Impression: Acute on chronic systolic heart failure Additional Impression: Shortness of breath Disposition: ADMITTED INPATIENT Admit to: Med Surg Condition: Serious Critical Care Note Critical Care Time?: Yes Critical care comment: Shortness of breath Authorized and Performed by: Kamala Brody MD Total critical care time: Approximately 34 minutes Due to a high probability of clinically significant, life threatening deterioration, the patient required my highest level of preparedness to intervene emergently and I personally spent this critical care time directly and personally managing the patient. This critical care time included obtaining a history; examining the patient; pulse oximetry; ordering and review of studies; arranging urgent treatment with development of a management plan; evaluation of patient's response to treatment; frequent reassessment; and, discussions with other providers. This critical care time was performed to assess and manage the high probability of imminent, life-threatening deterioration that could result in multi-organ failure. It was exclusive of separately billable procedures and treating other patients and teaching time. Please see my other sections and the rest of the note for further information on patient assessment and treatment. Stability Stability form required: No I personally scribed for KAMALA BRODY MD ([email or web address]) on 09/24/24 at 07:40. Electronically submitted by Tres Ariza ([email or web address]). I personally scribed for KAMALA BRODY MD ([email or web address]) on 09/24/24 at 07:50. Electronically submitted by T[employer] Ariza ([email or web address]). KAMALA BRODY MD September 24, 2024 07:40
[2024-09-24] MEDS: POTASSIUM EFFERVESENT TAB 25 MEQ PO ONE (09:15)
[2024-09-24 10:22] LABS: Urine Bacteria None Seen /hpf (None Seen)
[2024-09-24] MEDS: FUROSEMIDE 40 MG/4 ML VIAL IV ONE (10:31)
[2024-09-24 10:34] LABS: Urine Blood Negative /uL (Negative); Urine Clarity Clear (Clear); Urine Color Yellow (Yellow); Urine Hyaline Cast FEW /lpf (0 - 2); Urine Mucus FEW (None Seen); Urine Protein, UAD 1+ (Negative); Urine Specific Gravity 1.018 (1.001-1.035); Urine Squamous Epithelial Cell None Seen /hpf (<5); Urine Urobilinogen Normal (Negative); Urine WBC 1 /HPF (0-3)
[2024-09-24 10:53] VITALS: PULSE 90; RESP 16; O2SAT 99
[2024-09-24] MEDS ORDERED: NITROGLYCERIN 0.4 MG SL TAB SL PRN (11:45)
[2024-09-24] MEDS ORDERED: MORPHINE SULFATE INJ 2 MG/ml SYRG IV PRN (11:45)
[2024-09-24] MEDS ORDERED: ONDANSETRON HCL 4 MG/2 ML VIAL IV PRN (11:45)
[2024-09-24] MEDS ORDERED: ACETAMINOPHEN 325 MG TAB PO PRN (11:45)
--- NOTE | 2024-09-24 11:56 | DVHHP2 ---
History of Present Illness Reason for Visit: Shortness of breath History of Present Illness Ronnell Barreto is a 39-year-old male with past medical history of hypertension, CHF, and peptic ulcer disease who presents to the ED with shortness of breath and bilateral lower extremity swelling x2 weeks. Patient also endorses that he gained 40 lb in less than 1 month. He also reports that he has been unable to sleep the last 3 nights as it is difficult for him to lie down flat. He also states that he tried to sleep upright with difficulty as well. Patient also states that when he tries to take a deep breath and it is difficult and has some chest pain. He is also endorsing fatigue and dizziness. He does endorse that his bilateral lower extremities up to his abdomen now is getting tight. He states that his marketing intelligence manager advised him to take Lasix every other day and states that there is still no relief. Patient also states that he has been voiding but not as much even with the Lasix being taken. Patient denies any recent trauma or injury, recent sick contacts, recent travels, recent ingestion of spoiled food, abdominal pain, nausea, vomiting, diarrhea, lightheadedness, weakness, or dizziness. Cardiovascular: CHF, HTN GI: Peptic Ulcer disease Past Surgical History: None Family History: Other (Mom with heart disease) Smoke: No ALCOHOL: none Drugs: None Lives: with Family Domestic Violence: Neg Review of Systems Constitutional: Yes: Other (Fatigue and dizziness) Respiratory: Shortness of breath Cardiovascular: Chest Pain, Edema Allergies: Coded Allergies: NO KNOWN ALLERGIES (Unverified , 06/19/22) Medications Current Medications Medications Dose Ordered Sig/Nikita Route Start Time Stop Time Status Last Admin Dose Admin Furosemide 40 mg BIDD IV 09/24/24 18:00 UNV Acetaminophen/ Hydrocodone Bitart 1 tab Q4HP PRN PO 09/24/24 11:45 UNV Ondansetron HCl 4 mg Q4HP PRN IV 09/24/24 11:45 UNV Acetaminophen 650 mg Q6HP PRN PO 09/24/24 11:45 UNV Nitroglycerin 0.4 mg Q5MINP PRN SL 09/24/24 11:45 UNV Morphine Sulfate 2 mg Q30M PRN IV 09/24/24 11:45 UNV Enoxaparin Sodium 40 mg DAILY SC 09/25/24 10:00 UNV Exam Vital Signs Vital Signs Date Time Temp Pulse Resp B/P (MAP) Pulse Ox O2 Delivery O2 Flow Rate FiO2 09/24/24 10:53 90 16 99 Room Air* 0 21 09/24/24 10:31 108/69 09/24/24 09:17 98.6 98.6 General Appearance: Alert, Oriented X3, Cooperative, No acute distress HEENT: Atraumatic, PERRLA, EOMI, Mucous membr. moist/pink Cardiovascular: Regular rate, Normal S1, Normal S2, No murmurs Abdominal: Normal bowel sounds, Soft Extremities: No clubbing, No cyanosis, Normal pulses Skin: No significant lesion Neuro: Normal speech, Strength at 5/5 X4 ext, Normal tone, Sensation intact Psych/Mental Status: Mental status NL, Mood NL Labs/Xrays Labs Test 09/24/24 10:15 09/24/24 09:47 09/24/24 06:31 Range/Units Urine Color Yellow Yellow Urine Clarity Clear Clear Urine pH 6.0 5.0-9.0 Urine Specific [place] 1.018 1.001-1.035 Urine Protein 1+ H Negative Urine Ketones Negative Negative Urine Blood Negative Negative /uL Urine Nitrite Negative Negative Urine Bilirubin Negative Negative Urine Urobilinogen Normal Negative mg/dL Urine Leukocyte Esterase Negative Negative /uL Urine RBC 1 0 - 3 /hpf Urine Microscopic WBC 1 0-3 /HPF Urine Squamous Epithelial Cells None seen <5 /hpf Urine Bacteria None seen None Seen /hpf Urine Hyaline Casts Few 0 - 2 /lpf Urine Mucus Few None Seen Urine Glucose Normal Normal mg/dL Troponin I High Sensitivity 21 </=54 ng/L White Blood Count 6.4 4.4-10.8 10^3/uL Red Blood Count 3.80 L 4.5-5.90 10^6/uL Hemoglobin 12.3 L 13.5-17.5 g/dL Hematocrit 36.9 L 41.0-53.0 % Mean Corpuscular Volume 97.1 80.0-100.0 fL Mean Corpuscular Hemoglobin 32.3 H 28.0-32.0 pg Mean Corpuscular Hemoglobin Concent 33.3 32.0-36.0 g/dL Red Cell Distribution Width 18.0 H 11.8-14.3 % Platelet Count 197 140-450 10^3/uL Mean Platelet Volume 9.6 6.9-10.8 fL Neutrophils (%) (Auto) 69.9 37.0-80.0 % Lymphocytes (%) (Auto) 19.4 10.0-50.0 % Monocytes (%) (Auto) 9.3 0.0-12.0 % Eosinophils (%) (Auto) 0.5 0.0-7.0 % Basophils (%) (Auto) 0.9 0.0-2.0 % Neutrophils # (Auto) 4.5 1.6-8.6 10 ^3/uL Lymphocytes # (Auto) 1.2 0.4-5.4 10 ^3/uL Monocytes # (Auto) 0.6 0-1.3 10 ^3/uL Eosinophils # (Auto) 0 0-0.8 10 ^3/uL Basophils # (Auto) 0.1 0-0.2 10 ^3/uL Nucleated Red Blood Cells 0.2 % Sodium Level 137 136-145 mmol/L Potassium Level 3.2 L 3.5-5.1 mmol/L Chloride Level 97 L 98-107 mmol/L Carbon Dioxide Level 29 20-31 mmol/L Anion Gap 11 5-15 Blood Urea Nitrogen 23 9-23 mg/dL Creatinine 1.41 H 0.700-1.30 mg/dL Glomerular Filtration Rate Calc 66 >90 mL/min BUN/Creatinine Ratio 16.3 10.0-20.0 Serum Glucose 104 74-106 mg/dL Calcium Level 8.8 8.7-10.4 mg/dL B-Type Natriuretic Peptide 1644.25 0-100 pg/mL EXAM: XR Chest, 1 View CLINICAL INDICATION: sob TECHNIQUE: Frontal view of the chest. COMPARISON: None FINDINGS: LUNGS AND PLEURAL SPACES: Unremarkable. No consolidation. No pneumothorax. HEART: Cardiomegaly without overt failure. MEDIASTINUM: Unremarkable. Normal mediastinal contour. BONES/JOINTS: Unremarkable. No acute fracture. OTHER FINDINGS: . IMPRESSION: Cardiomegaly without overt failure. Assessment/Plan Assessment/Plan Assessment Acute on chronic CHF exacerbation Chest pain likely costochondritis Hypokalemia JERRELL Morbid obesity History of hypertension History of peptic ulcer disease Plan Admit to tele [facility] mallorie Stratton Troponin negative x3 Chest x-ray noted BNP UA UDS Strict I&Os Daily weights Diet Echo ordered Home medications reconciled DVT prophylaxis-Lovenox PUD prophylaxis-PPIs Discussed plan of care with patient and nurse Counseled patient on lifestyle modifications, diet, and exercise Plan discussed with: Patient My Orders Orders - GRAYSON SANTIAGO [employer]ER [employer]OUNTER Procedure Category Date Status Time Urinalysis LAB 09/24/24 Logged 11:43 Furosemide Injection PHA 09/24/24 Logged (Lasix Injection) 18:00 Strict I & O MARIA ISABEL 09/24/24 In Process 11:43 Daily Weight MARIA ISABEL 09/24/24 In Process 11:43 Admit ADMIT 09/24/24 Transmitted 11:43 Allergies MARIA ISABEL 09/24/24 In Process 11:43 Code Status CODE 09/24/24 Transmitted 11:43 Hydrocodone-Acet PHA 09/24/24 Logged 5/325mg Tab ([place] 11:45 Ondansetron Hcl PHA 09/24/24 Logged (Zofran) 11:45 Complete Blood Count LAB 09/25/24 Verified 04:00 Comprehensive LAB 09/25/24 Verified Metabolic Panel 04:00 Cardiac DIET 09/24/24 Transmitted Diet-2gna,Lofat,Lochol Lunch Echo 2d Mode Cardiac US 09/24/24 Logged DOP 11:43 Acetaminophen Tablet PHA 09/24/24 Logged (Tylenol Tablet) 11:45 Nitroglycerin PHA 09/24/24 Logged Sublingual (Ntrostat 11:45 Morphine Sulfate PHA 09/24/24 Logged Injection 11:45 Stat Ekg For Chest [facility] 09/24/24 In Process Pain 11:43 Notify Of Changes [facility] 09/24/24 In Process From Base 11:43 Health Service Coordinator For [facility] 09/24/24 In Process 24 Hours 11:43 [address] [facility] 09/24/24 In Process Protocol 11:43 Rhythm Strips Once [facility] 09/24/24 In Process Every Shift 11:43 Oxygen By Nasal RT 09/24/24 Transmitted Cannula 11:43 Enoxaparin Sodium PHA 09/25/24 Logged (Lovenox) 10:00 Lisinopril Tablet PHA 09/25/24 Verified (Zestril Tablet) 10:00 Pantoprazole Tablet PHA 09/24/24 Verified (Protonix Tablet) 22:00 Sacubitril-Valsartan PHA 09/25/24 Verified (Entresto 24-26 Mg 10:00 Sucralfate Tab PHA 09/24/24 Verified (Carafate Tab) 12:00 Thiamine Tab PHA 09/25/24 Verified 10:00 (Nf) Carvedilol PHA 09/24/24 Verified (Coreg) 22:00 (Nf) Folic Acid PHA 09/25/24 Verified 10:00 Date of Service: September 24, 2024 Billing Provider: GRAYSON SANTIAOG Common Visit Codes: [id number] INP/OBS CARE (HIGH) GRAYSON SANTIAGO September 24, 2024 11:56
[2024-09-24] MEDS: LISINOPRIL 20 MG TAB PO SCH (13:18)
[2024-09-24 13:25] LABS: Amphetamine Screen, Urine Neg (NEGATIVE); Barbiturate Scree,Urine Neg (NEGATIVE); Benzodiazephine Screen, Urine Neg (NEGATIVE); Cannabinoid Screen, Urine Neg (NEGATIVE); Cocaine Screen, Urine Neg (NEGATIVE); Opiate Scree,Urine Neg (NEGATIVE); Phencyclidine Screen, Urine Neg (NEGATIVE)
[2024-09-24] MEDS: PANTOPRAZOLE 40 MG TAB PO SCH (13:46)
[2024-09-24] MEDS: THIAMINE HCL 100 MG TAB PO SCH (13:46)
[2024-09-24] MEDS: SUCRALFATE 1 GM TAB PO SCH (13:46)
[2024-09-24] MEDS: SACUBITRIL-VALSARTAN 24mg/26mg TAB PO SCH (13:56)
[2024-09-24 15:46] VITALS: PULSE 89; RESP 18; O2SAT 91
[2024-09-24] MEDS: FUROSEMIDE 40 MG/4 ML VIAL IV SCH (17:32)
[2024-09-24 20:00] VITALS: PULSE 97
[2024-09-24] MEDS ORDERED: PATIENTS OWN MEDICATION (Carvedilol (Coreg) 1 TAB) PO SCH (22:00)
[2024-09-24] MEDS: CARVEDILOL 3.125 MG TAB PO SCH (22:09)
[2024-09-24] MEDS: MELATONIN 5 MG TAB PO ONE (22:20)
[2024-09-24] MEDS: HYDROcodone-ACET 5/325MG TAB PO PRN (23:43)
--- NOTE | 2024-09-24 23:44 | DVHSR ---
APPROVED REPORT EXAM: Two-dimensional and M-mode echocardiogram with Doppler and color Doppler. Blood Pressure: 108/69 mmHg INDICATION SOB RISK FACTORS Height: 6' 2", Weight: 371 DIMENSIONS LVDd7.5 (3.8-5.7cm)LA (2D)6.2 (1.9-4.0cm)Aortic Root3.5 (2.0-3.7cm) LVDs6.9 (2.5-4.0cm)LA (MM) (1.9-4.0cm)Aortic Cusp Exc1.8 (1.5-2.0cm) EF (%) 20.0 (55-70%)Rt. Atrium6.3 (1.9-4.0cm)Asc. Aorta cm IVSd1.1 (0.7-1.1cm)RV (D) (1.8-2.4cm) PWd1.1 (0.7-1.1cm) Mitral Valve MitralMitral Stenosis E wave1.70m/sMV Mean GR.mmHg E/A ratio0.02D MVAcm2 Aortic Valve Aortic ValveAortic Stenosis V10.80m/Krystina Mean GR.4mmHg V21.20m/Krystina Peak GR.6mmHg LVOT Diameter2.4 (1.8-2.4cm)Doppler AVA3.01cm2 Pulmonic Valve V20.60m/s Tricuspid Valve TR Velocity2.90m/s [id number] Conclusion Left ventricle is dilated Left ventricular systolic function is severely depressed Ejection fraction is estimated at 15% There is moderate to severe mitral regurgitation There is jnnj-da-tfywxjce tricuspid regurgitation Right ventricular systolic pressure is estimated to be within normal limit There is trivial pericardial effusion
[2024-09-25] VITALS (8 sets, daily range): BP systolic 96–121; BP diastolic 58–72; PULSE 86–96; RESP 17–19; TEMP 97.4–98; O2SAT 92–98
[2024-09-25] MEDS ORDERED: FURO40TA4 PO (03:54)
[2024-09-25 06:15] LABS: Basophils # (auto) 0.1 10 ^3/uL (0-0.2); Basophils % (auto) 0.8 % (0.0-2.0); Eosinophils # (auto) 0 10 ^3/uL (0-0.8); Eosinophils % (auto) 0.5 % (0.0-7.0); Hematocrit 37.9 % (41.0-53.0); Hemoglobin 12.7 g/dL (13.5-17.5); Lymphocytes # (auto) 1.5 10 ^3/uL (0.4-5.4); Lymphocytes % (auto) 20.8 % (10.0-50.0); Mean Corpuscular Hemoglobin 32.9 pg (28.0-32.0); Mean Corpuscular Hgb Conc. 33.5 g/dL (32.0-36.0); Monocytes # (auto) 0.5 10 ^3/uL (0-1.3); Neutrophils % (auto) 70.9 % (37.0-80.0); Nucleated Red Blood Cells % 0.1 %; Platelet Count (auto) 203 10^3/uL (140-450); Red Blood Cells 3.87 10^6/uL (4.5-5.90); Red Cell Distribution Width 17.5 % (11.8-14.3); White Blood Cell 7.1 10^3/uL (4.4-10.8)
[2024-09-25 06:46] LABS: Alanine Aminotransferase 19 U/L (7-40); Albumin 3.8 g/dL (3.2-4.8); Alkaline Phosphatase 76 U/L (46-116); Anion Gap 11 (5-15); Calcium 9.6 mg/dL (8.7-10.4); Carbon Dioxide 28 mmol/L (20-31); Sodium 137 mmol/L (136-145); Total Protein 6.6 g/dL (5.7-8.2)
[2024-09-25 06:47] LABS: Aspartate Aminotransferase 28 U/L (13-40)
[2024-09-25 06:50] LABS: Blood Urea Nitrogen 27 mg/dL (9-23); Chloride 98 mmol/L (98-107); Glucose 107 mg/dL (74-106); Potassium 3.4 mmol/L (3.5-5.1)
[2024-09-25] MEDS: ENOXAPARIN SOD 40 MG/0.4 ML SYRINGE SC SCH (09:37)
[2024-09-25] MEDS: FOLIC ACID 1 MG TAB PO SCH (09:39)
[2024-09-25] MEDS ORDERED: PATIENTS OWN MEDICATION (Folic Acid 1 MG) PO SCH (10:00)
--- NOTE | 2024-09-25 13:33 | DVHPN2 ---
Reviewed: Care Plan, H&P, Labs, Medications, Previous Orders, Radiology Changes from previous H/P or p: No Changes Cardiovascular: Chest Pain, Edema Respiratory: Shortness of breath Objective Vitals Vital Signs Date Time Temp Pulse Resp B/P (MAP) Pulse Ox O2 Delivery O2 Flow Rate FiO2 09/25/24 09:42 87 99/69 09/25/24 09:00 97.9 19 92 97.9 09/25/24 08:00 Room Air* 0 21 Intake/Output Intake and Output 09/25/24 07:00 Output Total 300 ml Balance -300 ml Output Urine Total 300 ml Medications Current Medications Medications Dose Ordered Sig/Nikita Route Start Time Stop Time Status Last Admin Dose Admin Furosemide 40 mg BIDD IV 09/24/24 18:00 09/25/24 06:31 40 MG Acetaminophen/ Hydrocodone Bitart 1 tab Q4HP PRN PO 09/24/24 11:45 09/25/24 09:43 1 TAB Ondansetron HCl 4 mg Q4HP PRN IV 09/24/24 11:45 Acetaminophen 650 mg Q6HP PRN PO 09/24/24 11:45 Nitroglycerin 0.4 mg Q5MINP PRN SL 09/24/24 11:45 Morphine Sulfate 2 mg Q30M PRN IV 09/24/24 11:45 Enoxaparin Sodium 40 mg DAILY SC 09/25/24 10:00 09/25/24 09:37 40 MG Pantoprazole Sodium 40 mg BID PO 09/24/24 13:18 09/25/24 09:39 40 MG Sacubitril/ Valsartan 1 tab DAILY PO 09/24/24 13:19 09/25/24 09:37 1 TAB Sucralfate 1 gm QID PO 09/24/24 12:00 09/25/24 06:31 1 GM Thiamine HCl 100 mg DAILY PO 09/24/24 13:19 09/25/24 09:37 100 MG Patient Own Medication 1 tab BID PO 09/24/24 22:00 UNV Patient Own Medication 1 mg DAILY PO 09/25/24 10:00 UNV Carvedilol 6.25 mg BID PO 09/24/24 22:00 09/24/24 22:09 6.25 MG Folic Acid 1 mg DAILY PO 09/25/24 10:00 09/25/24 09:39 1 MG Laboratory Results Laboratory Tests 09/25/24 05:50 Chemistry Test 09/25/24 05:50 Albumin 3.8 g/dL (3.2-4.8) Calcium Level 9.6 mg/dL (8.7-10.4) Total Protein 6.6 g/dL (5.7-8.2) LFT Test 09/25/24 05:50 Alanine Aminotransferase (ALT) 19 U/L (7-40) Alkaline Phosphatase 76 U/L (46-116) Aspartate Amino Transferase (AST) 28 U/L (13-40) Total Bilirubin 2.0 mg/dL (0.2-1.0) H Urinalysis Test 09/24/24 10:15 Urine Color Yellow (Yellow) Urine Clarity Clear (Clear) Urine pH 6.0 (5.0-9.0) Urine Specific [place] 1.018 (1.001-1.035) Urine Protein 1+ (Negative) H Urine Ketones Negative (Negative) Urine Blood Negative /uL (Negative) Urine Nitrite Negative (Negative) Urine Bilirubin Negative (Negative) Urine Urobilinogen Normal mg/dL (Negative) Urine Leukocyte Esterase Negative /uL (Negative) Urine RBC 1 /hpf (0 - 3) Urine Microscopic WBC 1 /HPF (0-3) Urine Squamous Epithelial Cells None seen /hpf (<5) Urine Bacteria None seen /hpf (None Seen) Urine Hyaline Casts Few /lpf (0 - 2) Urine Mucus Few (None Seen) Urine Glucose Normal mg/dL (Normal) Labs and/or images reviewed: Labs reviewed by me, Image(s) reviewed by me Assessment/Plan Assessment/Plan Acute on chronic CHF exacerbation BNP 1644 , Lasix cardiology consult for Dr. [place] Cardiomyopathy ejection fraction 15 percent Chest pain likely costochondritis Hypokalemia JERRELL Morbid obesity History of hypertension History of peptic ulcer disease Bilateral pedal edema: Venous ultrasound rule out DVT Time spent 45 minutes Patient is full code Advanced care planning time 20 mts Plan discussed with: Patient Date of Service: September 25, 2024 Billing Provider: JURGEN MI MD Common Visit Codes: [id number] INP/OBS CARE(HIGH) Secondary Visit Codes: [id number] CARE PLAN 30 MINUTES JURGEN MI MD September 25, 2024 13:33
--- NOTE | 2024-09-25 15:01 | DVH ---
Bilateral lower extremity venous duplex Clinical History: Bilateral lower extremity swelling Comparison: None Technique: Duplex Doppler evaluation of the deep venous systems of both lower extremities from the common femora l veins to the popliteal veins including color Doppler and spectral/pulsed waveform analysis was perf ormed. Findings: RIGHT SIDE: The common femoral vein demonstrates appropriate compressibility and waveform variability. There is compressibility/patency of the great saphenous vein at the proximal thigh. The femoral vein demonstrates appropriate compressibility and waveform variability. The deep femoral vein demonstrates appropriate compressibility and waveform variability. The popliteal vein demonstrates appropriate compressibility and waveform variability. There is normal compressibility at the tibioperoneal trunk. LEFT SIDE: The common femoral vein demonstrates appropriate compressibility and waveform variability. There is compressibility/patency of the great saphenous vein at the proximal thigh. The femoral vein demonstrates appropriate compressibility and waveform variability. The deep femoral vein demonstrates appropriate compressibility and waveform variability. The popliteal vein demonstrates appropriate compressibility and waveform variability. There is normal compressibility at the tibioperoneal trunk. Impression: No right or left femoropopliteal venous thrombosis.
--- NOTE | 2024-09-25 18:33 | DVHINCON2 ---
Date of service: September 25, 2024 Referring Physician CHF Reason for Consultation CHF History of Present Illness This is a 39 year-old male with a past medical history of hypertension, CHF, and peptic ulcer disease who presents to the ED with complaints of shortness of breath and bilateral lower extremity swelling x 2 weeks. Patient also notes that he gained 40 lb in less than 1 month. Patient also reports that he has been un able to sleep the last 3 nights as it is difficult for him to lie down flat. Patient also states that when he tries to take a deep breath and it is difficult and has some chest pain. He is also endorsing fatigue and dizziness. He does note that his bilateral lower extremities up to his abdomen now is getting tight. He states that his whizzer hand advised him to take Lasix every other day and states that there is still no relief. Patient also states that he has been voiding but not as much even with the Lasix being taken. BNP 1644.25, K 3.2, Epic Anesthesia Analyst 1.41. TROP x3 is negative. Chest x-ray shows cardiomegaly without overt failure.Patient was admitted to the hospital. I am asked to consult on this patient. Family History: Patient reports no known family medical history. Allergies: Coded Allergies: NO KNOWN ALLERGIES (Unverified , 06/19/22) Home Meds Active Scripts Cyclobenzaprine HCl (Cyclobenzaprine Hydrochlo) 5 Mg Tab, 5 MG PO QHSP PRN for 5 Days, #5 TAB Prov:BRENDA OJEDA DO 10/06/22 Lisinopril (Lisinopril) 20 Mg Tab, 1 TAB PO DAILY, #90 TAB 3 Refills Prov:JURGEN MI MD 06/24/22 Carvedilol (Coreg) 6.25 Mg Tab, 1 TAB PO BID, #180 TAB 3 Refills Prov:JURGEN MI MD 06/24/22 Furosemide (Lasix) 20 Mg Tb, 1 TAB PO DAILY, #90 TAB 1 Refill Prov:JURGEN MI MD 06/24/22 Sucralfate (Sucralfate) 1 Gm Tab, 1 GM PO QID, #120 TAB Prov:JURGEN MI MD 06/24/22 Pantoprazole Sodium Sesquihydr (Pantoprazole Sodium) 40 Mg Tab, 40 MG PO BID, #60 TAB Prov:JURGEN MI MD 06/24/22 Folic Acid (Folic Acid) 1 Mg Tab, 1 MG PO DAILY, #30 TAB Prov:JURGEN MI MD 06/24/22 Thiamine Hcl (Thiamine Hcl) 100 Mg Tab, 1 TAB PO DAILY, #30 TAB Prov:JURGEN MI MD 06/24/22 Reported Medications Furosemide (Furosemide) 40 Mg Tab, 40 MG PO DAILY, TAB 09/25/24 Sacubitril-Valsartan (Entresto 24-26 mg) 1 Tab Tab, 1 TAB PO BID, TAB 10/06/22 Potassium Chloride (POTASSIUM CHLORIDE CR) 10 Meq Tb, 1 TAB PO DAILY, #30 TAB 5 Refills 10/06/22 Current Medications Current Medications Medications (Trade) Dose Ordered Sig/Nikita Route PRN Reason Start Time Stop Time Status Last Admin Furosemide (Lasix Injection) 40 mg BIDD IV 09/24/24 18:00 09/25/24 06:31 Enoxaparin Sodium (Lovenox) 40 mg DAILY SC 09/25/24 10:00 09/25/24 09:37 Patient Own Medication 1 tab BID PO 09/24/24 22:00 UNV Patient Own Medication 1 mg DAILY PO 09/25/24 10:00 UNV Carvedilol (Coreg Tablet) 6.25 mg BID PO 09/24/24 22:00 09/24/24 22:09 Folic Acid 1 mg DAILY PO 09/25/24 10:00 09/25/24 09:39 Review of Systems Constitutional: denies: chills, diaphoresis, fatigue, fever, malaise, sweats, weakness, others EENTM: denies: blurred vision, double vision, ear bleeding, ear discharge, ear drainage, ear pain, ear ringing, eye pain, eye redness, hearing loss, mouth pa in, mouth swelling, nasal discharge, nose bleeding, nose congestion, nose pain, photophobia, tearing, throat pain, throat swelling, voice changes, others Respiratory: reports: cough (With a blood), SOB at rest (While sleeping), shortness of breath; denies: hemoptysis, orthopnea, SOB with excertion, stridor, wheezing, others Cardiovascular: denies: chest pain, dizzy spells, diaphoresis, Dyspnea on exert ion, edema, irregular heart beat, left arm pain, lightheadedness, palpitations, PND, syncope, others Gastrointestinal: denies: abdomen distended, abdominal pain, blood streaked bowels, constipated, diarrhea, dysphagia, difficulty swallowing, hematemesis, melena, nausea, poor appetite, poor fluid intake, rectal bleeding, rectal pain, vomiting, others Genitourinary: denies: burning, dysuria, flank pain, frequency, hematuria, incontinence, penile discharge, penile sore, pain, testicle pain, testicle swelling, urgency, others Neurological: denies: dizziness, fainting, headache, left sided numbness, left sided weakness, numbness, paresthesia, pre-existing deficit, right sided numbness, right sided weakness, seizure, speech problems, tingling, tremors, weakness, others Musculoskeletal: denies: back pain, gout, joint pain, joint swelling, muscle pain, muscle stiffness, neck pain, others Integumetry: denies: bruises, change in color, change in hair/nails, dryness, laceration, lesions, lumps, rash, wounds, others Allergic/Immunocompromised: denies: Difficulty Healing, Frequent Infections, Hives, Itching, others Hematologic/Lymphatic: denies: anemia, blood clots, easy bleeding, easy bruising, swollen glands, others Endocrine: denies: excessive hunger, excessive sweating, excessive thirst, excessive urination, flushing, intolerance to cold, intolerance to heat, unexplained weight gain, unexplained weight loss, others Psychiatric: denies: anxiety, bipolar disorder, depression, hopeless, panic disorder, schizophrenia, sleepless, suicidal, others All Other Systems: Reviewed and Negative Vital Signs Vital Signs Date Time Temp Pulse Resp B/P (MAP) Pulse Ox O2 Delivery O2 Flow Rate FiO2 09/25/24 13:00 98.0 92 19 101/69 (80) 96 98.0 09/25/24 08:00 Room Air* 0 21 Physical Exam GENERAL: Alert and oriented x 3. No acute distress. Morbid obesity. EYES: PERRL, EOMI. Anicteric. HENT: Moist mucous membranes. LUNGS: Clear to auscultation bilaterally. CARDIOVASCULAR: Regular rate and rhythm. ABDOMEN: Soft, nontender and nondistended. EXTREMITIES: +2 pitting edema. NEUROLOGIC: No focal neurological deficits. SKIN: Warm, dry. Labs/Diagnostic Data Labs Test 09/25/24 05:50 09/24/24 10:15 09/24/24 09:47 09/24/24 06:31 Range/Units White Blood Count 7.1 4.4-10.8 10^3/uL Red Blood Count 3.87 L 4.5-5.90 10^6/uL Hemoglobin 12.7 L 13.5-17.5 g/dL Hematocrit 37.9 L 41.0-53.0 % Mean Corpuscular Volume 98.0 80.0-100.0 fL Mean Corpuscular Hemoglobin 32.9 H 28.0-32.0 pg Mean Corpuscular Hemoglobin Concent 33.5 32.0-36.0 g/dL Red Cell Distribution Width 17.5 H 11.8-14.3 % Platelet Count 203 140-450 10^3/uL Mean Platelet Volume 9.7 6.9-10.8 fL Neutrophils (%) (Auto) 70.9 37.0-80.0 % Lymphocytes (%) (Auto) 20.8 10.0-50.0 % Monocytes (%) (Auto) 7.0 0.0-12.0 % Eosinophils (%) (Auto) 0.5 0.0-7.0 % Basophils (%) (Auto) 0.8 0.0-2.0 % Neutrophils # (Auto) 5.0 1.6-8.6 10 ^3/uL Lymphocytes # (Auto) 1.5 0.4-5.4 10 ^3/uL Monocytes # (Auto) 0.5 0-1.3 10 ^3/uL Eosinophils # (Auto) 0 0-0.8 10 ^3/uL Basophils # (Auto) 0.1 0-0.2 10 ^3/uL Nucleated Red Blood Cells 0.1 % Sodium Level 137 136-145 mmol/L Potassium Level 3.4 L 3.5-5.1 mmol/L Chloride Level 98 98-107 mmol/L Carbon Dioxide Level 28 20-31 mmol/L Anion Gap 11 5-15 Blood Urea Nitrogen 27 H 9-23 mg/dL Creatinine 1.35 H 0.700-1.30 mg/dL Glomerular Filtration Rate Calc 69 >90 mL/min BUN/Creatinine Ratio 20.0 10.0-20.0 Serum Glucose 107 H 74-106 mg/dL Calcium Level 9.6 8.7-10.4 mg/dL Total Bilirubin 2.0 H 0.2-1.0 mg/dL Aspartate Amino Transferase (AST) 28 13-40 U/L Alanine Aminotransferase (ALT) 19 7-40 U/L Alkaline Phosphatase 76 46-116 U/L Total Protein 6.6 5.7-8.2 g/dL Albumin 3.8 3.2-4.8 g/dL Urine Color Yellow Yellow Urine Clarity Clear Clear Urine pH 6.0 5.0-9.0 Urine Specific [place] 1.018 1.001-1.035 Urine Protein 1+ H Negative Urine Ketones Negative Negative Urine Blood Negative Negative /uL Urine Nitrite Negative Negative Urine Bilirubin Negative Negative Urine Urobilinogen Normal Negative mg/dL Urine Leukocyte Esterase Negative Negative /uL Urine RBC 1 0 - 3 /hpf Urine Microscopic WBC 1 0-3 /HPF Urine Squamous Epithelial Cells None seen <5 /hpf Urine Bacteria None seen None Seen /hpf Urine Hyaline Casts Few 0 - 2 /lpf Urine Mucus Few None Seen Urine Glucose Normal Normal mg/dL Urine Opiates Screen Neg NEGATIVE Urine Fentanyl Screen Neg NEGATIVE Urine Barbiturates Screen Neg NEGATIVE Urine Phencyclidine Screen Neg NEGATIVE Urine Amphetamines Screen Neg NEGATIVE Urine Benzodiazepines Screen Neg NEGATIVE Urine Cocaine Screen Neg NEGATIVE Urine Cannabinoids Screen Neg NEGATIVE Troponin I High Sensitivity 21 </=54 ng/L B-Type Natriuretic Peptide 1644.25 0-100 pg/mL Assessment Acute on chronic CHF exacerbation. Chest pain. Hypokalemia. JERRELL. Morbid obesity. History of hypertension. History of peptic ulcer disease. Plan/Recommendation I agree with your ongoing assessment and care of plan. Telemetry reviewed. Echocardiogram. Morphine and [place] for pain management. Coreg. DVT and GI prophylactics. Diuretics with Lasix. Entresto. Additional plan as per the hospital course. A total of 45 minutes was spent reviewing the patient record, examining the patient, making a diagnostic and therapeutic plan, discussing this plan with medical personnel, following up on diagnostic studies and following the patient for clinical stability excluding any and all procedures. At least 50% of this time was spent in direct, [id number] contact. Plan discussed with: Patient SARA CROFT MD September 25, 2024 16:37
[2024-09-26] VITALS (8 sets, daily range): BP systolic 100–126; BP diastolic 64–94; PULSE 80–94; RESP 16–17; TEMP 97.5–98.1; O2SAT 94–97
--- NOTE | 2024-09-26 10:22 | DVHPN2 ---
Reviewed: Care Plan, H&P, Labs, Medications, Previous Orders, Radiology Changes from previous H/P or p: No Changes Cardiovascular: Chest Pain, Edema Respiratory: Shortness of breath Objective Vitals Vital Signs Date Time Temp Pulse Resp B/P (MAP) Pulse Ox O2 Delivery O2 Flow Rate FiO2 09/26/24 09:00 97.9 87 16 113/71 (85) 97 97.9 09/25/24 20:00 Room Air* 0 21 Intake/Output Intake and Output 09/26/24 07:00 Intake Total 1700 ml Output Total 950 ml Balance 750 ml Intake Oral 1700 ml Output Urine Total 950 ml # Voids 4 # Bowel Movements 1 Medications Current Medications Medications Dose Ordered Sig/Nikita Route Start Time Stop Time Status Last Admin Dose Admin Furosemide 40 mg BIDD IV 09/24/24 18:00 09/26/24 05:12 40 MG Acetaminophen/ Hydrocodone Bitart 1 tab Q4HP PRN PO 09/24/24 11:45 09/26/24 05:21 1 TAB Ondansetron HCl 4 mg Q4HP PRN IV 09/24/24 11:45 Acetaminophen 650 mg Q6HP PRN PO 09/24/24 11:45 Nitroglycerin 0.4 mg Q5MINP PRN SL 09/24/24 11:45 Morphine Sulfate 2 mg Q30M PRN IV 09/24/24 11:45 Enoxaparin Sodium 40 mg DAILY SC 09/25/24 10:00 09/25/24 09:37 40 MG Pantoprazole Sodium 40 mg BID PO 09/24/24 13:18 09/25/24 21:51 40 MG Sacubitril/ Valsartan 1 tab DAILY PO 09/24/24 13:19 09/25/24 09:37 1 TAB Sucralfate 1 gm QID PO 09/24/24 12:00 09/26/24 05:07 1 GM Thiamine HCl 100 mg DAILY PO 09/24/24 13:19 09/25/24 09:37 100 MG Patient Own Medication 1 tab BID PO 09/24/24 22:00 UNV Patient Own Medication 1 mg DAILY PO 09/25/24 10:00 UNV Carvedilol 6.25 mg BID PO 09/24/24 22:00 09/25/24 21:51 6.25 MG Folic Acid 1 mg DAILY PO 09/25/24 10:00 09/25/24 09:39 1 MG Laboratory Results Laboratory Tests 09/25/24 05:50 Urinalysis Test 09/24/24 10:15 Urine Color Yellow (Yellow) Urine Clarity Clear (Clear) Urine pH 6.0 (5.0-9.0) Urine Specific [place] 1.018 (1.001-1.035) Urine Protein 1+ (Negative) H Urine Ketones Negative (Negative) Urine Blood Negative /uL (Negative) Urine Nitrite Negative (Negative) Urine Bilirubin Negative (Negative) Urine Urobilinogen Normal mg/dL (Negative) Urine Leukocyte Esterase Negative /uL (Negative) Urine RBC 1 /hpf (0 - 3) Urine Microscopic WBC 1 /HPF (0-3) Urine Squamous Epithelial Cells None seen /hpf (<5) Urine Bacteria None seen /hpf (None Seen) Urine Hyaline Casts Few /lpf (0 - 2) Urine Mucus Few (None Seen) Urine Glucose Normal mg/dL (Normal) Labs and/or images reviewed: Labs reviewed by me, Image(s) reviewed by me Assessment/Plan Assessment/Plan Acute on chronic CHF exacerbation BNP 1644 , Lasix cardiology consult for Dr. May appreciated Cardiomyopathy ejection fraction 15 % Chest pain likely costochondritis Hypokalemia JERRELL Morbid obesity History of hypertension History of peptic ulcer disease Bilateral pedal edema: Venous ultrasound rule out DVT Time spent 45 minutes Patient is full code Advanced care planning time 20 mts Plan discussed with: Patient My Orders Orders - JURGEN MI MD Procedure Category Date Status Time Bilat Lower Dvt US 09/25/24 Resulted 14:07 Date of Service: September 26, 2024 Billing Provider: JURGEN MI MD Common Visit Codes: [id number] INP/OBS CARE(HIGH) JURGEN MI MD September 26, 2024 10:22
--- NOTE | 2024-09-26 22:31 | DVHPN2 ---
Progress Note - Dictate Date Seen: September 26, 2024 Medical Necessity Reason Pt with a Central, PICC or Fol: No Subjective Patient was seen and evaluated in follow up. Patient reports improvement in shortness of breath. Patient complains of BLE swelling. Echocardiogram shows EF of 15%, left ventricle is dilated, left ventricular systolic function is severely depressed, moderate to severe mitral regurgitation, [id number] tricuspid regurgitation, right ventricular systolic pressure is estimated to be within normal limit, trivial pericardial effusion. Telemetry reviewed. vital signs Vital Sign Date Time Temp Pulse Resp B/P (MAP) Pulse Ox O2 Delivery O2 Flow Rate FiO2 09/26/24 12:40 97.5 80 16 100/74 (83) 95 97.5 09/26/24 08:20 Room Air* 0 21 Total Intake and Output 09/25/24 09/25/24 09/26/24 15:00 23:00 07:00 Intake Total 0 ml 1700 ml Output Total 950 ml Balance 0 ml 750 ml medications Current Medications Medications Dose Ordered Sig/Nikita Route Start Time Stop Time Status Last Admin Dose Admin Furosemide 40 mg BIDD IV 09/24/24 18:00 09/26/24 05:12 40 MG Acetaminophen/ Hydrocodone Bitart 1 tab Q4HP PRN PO 09/24/24 11:45 09/26/24 11:53 1 TAB Ondansetron HCl 4 mg Q4HP PRN IV 09/24/24 11:45 Acetaminophen 650 mg Q6HP PRN PO 09/24/24 11:45 Nitroglycerin 0.4 mg Q5MINP PRN SL 09/24/24 11:45 Morphine Sulfate 2 mg Q30M PRN IV 09/24/24 11:45 Enoxaparin Sodium 40 mg DAILY SC 09/25/24 10:00 09/26/24 10:24 40 MG Pantoprazole Sodium 40 mg BID PO 09/24/24 13:18 09/26/24 10:22 40 MG Sacubitril/ Valsartan 1 tab DAILY PO 09/24/24 13:19 09/26/24 10:21 1 TAB Sucralfate 1 gm QID PO 09/24/24 12:00 09/26/24 12:44 1 GM Thiamine HCl 100 mg DAILY PO 09/24/24 13:19 09/26/24 10:24 100 MG Patient Own Medication 1 tab BID PO 09/24/24 22:00 UNV Patient Own Medication 1 mg DAILY PO 09/25/24 10:00 UNV Carvedilol 6.25 mg BID PO 09/24/24 22:00 09/26/24 10:22 6.25 MG Folic Acid 1 mg DAILY PO 09/25/24 10:00 09/26/24 10:24 1 MG objective GENERAL: Alert and oriented x 3. No acute distress. Morbid obesity. EYES: PERRL, EOMI. Anicteric. HENT: Moist mucous membranes. LUNGS: Clear to auscultation bilaterally. CARDIOVASCULAR: Regular rate and rhythm. ABDOMEN: Soft, nontender and nondistended. EXTREMITIES: +2 pitting edema. NEUROLOGIC: No focal neurological deficits. SKIN: Warm, dry. laboratory and microbiology Laboratory Tests 09/25/24 05:50 Test 09/25/24 05:50 Range/Units Serum Glucose 107 H 74-106 mg/dL Problem List Acute on chronic CHF exacerbation. Chest pain. Hypokalemia. JERRELL. Morbid obesity. History of hypertension. History of peptic ulcer disease. Assessment/Plan Continued all current supportive medical care. Morphine and [place] for pain management. Coreg. DVT and GI prophylactics. Diuretics with Lasix. Entresto. Additional plan as per the hospital course Plan discussed with: Patient SARA CROFT MD September 26, 2024 13:00
[2024-09-27] VITALS (7 sets, daily range): BP systolic 90–128; BP diastolic 60–81; PULSE 64–90; RESP 14–18; TEMP 36.6; O2SAT 95–99
--- NOTE | 2024-09-27 11:13 | DVHDS2 ---
Discharge Summary Date of Admission September 24, 2024 at 11:43 Date of Discharge: September 27, 2024 Admitting Diagnosis Shortness of breath Wounds: None Labs/Diagnostic Data: Laboratory Results Test 09/26/24 11:56 09/25/24 05:50 09/24/24 10:15 09/24/24 09:47 POC Glucose 145 mg/dl (70-106) White Blood Count 7.1 10^3/uL (4.4-10.8) Red Blood Count 3.87 10^6/uL (4.5-5.90) Hemoglobin 12.7 g/dL (13.5-17.5) Hematocrit 37.9 % (41.0-53.0) Mean Corpuscular Volume 98.0 fL (80.0-100.0) Mean Corpuscular Hemoglobin 32.9 pg (28.0-32.0) Mean Corpuscular Hemoglobin Concent 33.5 g/dL (32.0-36.0) Red Cell Distribution Width 17.5 % (11.8-14.3) Platelet Count 203 10^3/uL (140-450) Mean Platelet Volume 9.7 fL (6.9-10.8) Neutrophils (%) (Auto) 70.9 % (37.0-80.0) Lymphocytes (%) (Auto) 20.8 % (10.0-50.0) Monocytes (%) (Auto) 7.0 % (0.0-12.0) Eosinophils (%) (Auto) 0.5 % (0.0-7.0) Basophils (%) (Auto) 0.8 % (0.0-2.0) Neutrophils # (Auto) 5.0 10 ^3/uL (1.6-8.6) Lymphocytes # (Auto) 1.5 10 ^3/uL (0.4-5.4) Monocytes # (Auto) 0.5 10 ^3/uL (0-1.3) Eosinophils # (Auto) 0 10 ^3/uL (0-0.8) Basophils # (Auto) 0.1 10 ^3/uL (0-0.2) Nucleated Red Blood Cells 0.1 % Sodium Level 137 mmol/L (136-145) Potassium Level 3.4 mmol/L (3.5-5.1) Chloride Level 98 mmol/L (98-107) Carbon Dioxide Level 28 mmol/L (20-31) Anion Gap 11 (5-15) Blood Urea Nitrogen 27 mg/dL (9-23) Creatinine 1.35 mg/dL (0.700-1.30) Glomerular Filtration Rate Calc 69 mL/min (>90) BUN/Creatinine Ratio 20.0 (10.0-20.0) Serum Glucose 107 mg/dL (74-106) Calcium Level 9.6 mg/dL (8.7-10.4) Total Bilirubin 2.0 mg/dL (0.2-1.0) Aspartate Amino Transferase (AST) 28 U/L (13-40) Alanine Aminotransferase (ALT) 19 U/L (7-40) Alkaline Phosphatase 76 U/L (46-116) Total Protein 6.6 g/dL (5.7-8.2) Albumin 3.8 g/dL (3.2-4.8) Urine Color Yellow (Yellow) Urine Clarity Clear (Clear) Urine pH 6.0 (5.0-9.0) Urine Specific [place] 1.018 (1.001-1.035) Urine Protein 1+ (Negative) Urine Ketones Negative (Negative) Urine Blood Negative /uL (Negative) Urine Nitrite Negative (Negative) Urine Bilirubin Negative (Negative) Urine Urobilinogen Normal mg/dL (Negative) Urine Leukocyte Esterase Negative /uL (Negative) Urine RBC 1 /hpf (0 - 3) Urine Microscopic WBC 1 /HPF (0-3) Urine Squamous Epithelial Cells None seen /hpf (<5) Urine Bacteria None seen /hpf (None Seen) Urine Hyaline Casts Few /lpf (0 - 2) Urine Mucus Few (None Seen) Urine Glucose Normal mg/dL (Normal) Urine Opiates Screen Neg (NEGATIVE) Urine Fentanyl Screen Neg (NEGATIVE) Urine Barbiturates Screen Neg (NEGATIVE) Urine Phencyclidine Screen Neg (NEGATIVE) Urine Amphetamines Screen Neg (NEGATIVE) Urine Benzodiazepines Screen Neg (NEGATIVE) Urine Cocaine Screen Neg (NEGATIVE) Urine Cannabinoids Screen Neg (NEGATIVE) Troponin I High Sensitivity 21 ng/L (</=54) Test 09/24/24 06:31 B-Type Natriuretic Peptide 1644.25 pg/mL (0-100) Other Laboratory Tests 09/25/24 05:50 Brief Hx & Hospital Course: 39-year-old male with a history of cardiomyopathy ejection fraction 15 percent hypotension peptic ulcer disease morbid obesity Came in for shortness of breaths BNP was high 1644 treated with Lasix cardiology consult by Dr. May. Venous ultrasound ruled out DVT bilateral lower extremities. Patient is feeling better and being discharged home to continue all the previous home medications. No new medications. Reviewed all his home medications. Consults/Reason for consult Cardiology Dr. May Operations or Procedures Echocardiogram Condition at Discharge: Fair Final Diagnosis/Problems List Acute on chronic CHF exacerbation BNP 1644 , Lasix cardiology consult for Dr. May appreciated Cardiomyopathy ejection fraction 15 % Chest pain likely costochondritis Hypokalemia JERRELL Morbid obesity History of hypertension History of peptic ulcer disease Bilateral pedal edema: DVT ruled out Discharge Disposition: Home Discharge Instruct/Medications Diet: Cardiac 2g Na,low cholest Activity: Light activity Follow Up/Referral: Follow up with your primary Dr in one week Follow up with the Cardiology Dr. May in two weeks Resume all previous home meds Medications: None 35 (Time taken for discharge summary 35 minutes) Discharge Statement: "Patient was advised to return to the ER or call 911 if any headaches, dizziness, shortness of breath, chest pain, abdominal pain, bleeding, fevers, or worsening of medical condition. Patient was counseled about treatment plan, medications, possible side effects, patientverbalized understanding. All questions were answered to the best of my ability. This discharge took greater then 30 minutes in planning, reviewing documentation, counseling the patient, and discussing with other team members." ASSESSMENT ASSESSMENT Hospital Course Uneventful Assessment Acute on chronic CHF exacerbation BNP 1644 , Lasix cardiology consult for Dr. May appreciated Cardiomyopathy ejection fraction 15 % Chest pain likely costochondritis Hypokalemia JERRELL Morbid obesity History of hypertension History of peptic ulcer disease Bilateral pedal edema: DVT ruled out Date of Service: September 27, 2024 Billing Provider: JURGEN MI MD Common Visit Codes: [id number] INP/OBS CARE(HIGH) UJRGEN MI MD September 27, 2024 11:13
--- NOTE | 2024-09-27 22:49 | DVHPN2 ---
Progress Note - Dictate Date Seen: September 27, 2024 Medical Necessity Reason Pt with a Central, PICC or Fol: No Subjective Patient was seen and evaluated in follow up. Patient has no new complaints at this time. Patient denies any cardiac symptoms. Patient is cardiac stable for discharge. Telemetry reviewed. vital signs Vital Sign Date Time Temp Pulse Resp B/P (MAP) Pulse Ox O2 Delivery O2 Flow Rate FiO2 09/27/24 12:42 36.6 84 18 97 09/27/24 10:16 116/63 09/27/24 08:20 Room Air* 0 21 Total Intake and Output 09/26/24 09/26/24 09/27/24 15:00 23:00 07:00 Intake Total 700 ml 800 ml Output Total 650 ml 850 ml Balance 50 ml -50 ml medications Current Medications Medications Dose Ordered Sig/Nikita Route Start Time Stop Time Status Last Admin Dose Admin Furosemide 40 mg BIDD IV 09/24/24 18:00 09/27/24 07:14 40 MG Acetaminophen/ Hydrocodone Bitart 1 tab Q4HP PRN PO 09/24/24 11:45 09/27/24 09:19 1 TAB Ondansetron HCl 4 mg Q4HP PRN IV 09/24/24 11:45 Acetaminophen 650 mg Q6HP PRN PO 09/24/24 11:45 Nitroglycerin 0.4 mg Q5MINP PRN SL 09/24/24 11:45 Morphine Sulfate 2 mg Q30M PRN IV 09/24/24 11:45 Enoxaparin Sodium 40 mg DAILY SC 09/25/24 10:00 09/27/24 09:20 40 MG Pantoprazole Sodium 40 mg BID PO 09/24/24 13:18 09/27/24 09:16 40 MG Sacubitril/ Valsartan 1 tab DAILY PO 09/24/24 13:19 09/27/24 09:24 1 TAB Sucralfate 1 gm QID PO 09/24/24 12:00 09/27/24 11:59 1 GM Thiamine HCl 100 mg DAILY PO 09/24/24 13:19 09/27/24 09:16 100 MG Patient Own Medication 1 tab BID PO 09/24/24 22:00 UNV Patient Own Medication 1 mg DAILY PO 09/25/24 10:00 UNV Carvedilol 6.25 mg BID PO 09/24/24 22:00 09/27/24 09:16 6.25 MG Folic Acid 1 mg DAILY PO 09/25/24 10:00 09/27/24 09:16 1 MG objective GENERAL: Alert and oriented x 3. No acute distress. Morbid obesity. EYES: PERRL, EOMI. Anicteric. HENT: Moist mucous membranes. LUNGS: Clear to auscultation bilaterally. CARDIOVASCULAR: Regular rate and rhythm. ABDOMEN: Soft, nontender and nondistended. EXTREMITIES: +2 pitting edema. NEUROLOGIC: No focal neurological deficits. SKIN: Warm, dry. laboratory and microbiology Laboratory Tests 09/25/24 05:50 Test 09/25/24 05:50 Range/Units Serum Glucose 107 H 74-106 mg/dL Problem List Acute on chronic CHF exacerbation. Chest pain. Hypokalemia. JERRELL. Morbid obesity. History of hypertension. History of peptic ulcer disease. Assessment/Plan Continued all current supportive medical care. Morphine and Rosiclare for pain management. Coreg. DVT and GI prophylactics. Diuretics with Lasix. Entresto. Additional plan as per the hospital course Plan discussed with: Patient SARA CROFT MD September 27, 2024 13:25
== END 2024-09-27 14:25 | disposition home or self-care (01) | DRG 205 ==
LOC: ER 05:12 → OVERFLOW 11:43 → TELE-EAST 09-25 02:51
PROVIDERS: ADMIT Family Medicine; ATTEND Family Medicine
DX: M94.0 Chondrocostal junction syndrome [Tietze] (principal); I50.23 Acute on chronic systolic (congestive) heart failure; N17.9 Acute kidney failure, unspecified; I42.9 Cardiomyopathy, unspecified; Z68.42 Body mass index [BMI] 45.0-49.9, adult; I11.0 Hypertensive heart disease with heart failure; E87.6 Hypokalemia; E66.01 Morbid (severe) obesity due to excess calories; Z79.899 Other long term (current) drug therapy; Z87.11 Personal history of peptic ulcer disease
CPT/HCPCS: 36415; 71046; 80048; 80053; 80307; 81001; 82962; 83880; 84484; 85025; 93306; 93970; 96374; 96376; 99291; G0378

== ENCOUNTER 2024-10-09 04:23 | Inpatient (IN) | payer BC ==
[~2024-10-09] VITALS: Ht 188 cm; Wt 132.2 kg
[~2024-10-09 04:23] MED LIST changes: +FURO40TA4 PO
--- NOTE | 2024-10-09 05:41 | ED.PDOC ---
HPI Comments 39-year-old male who came to ER due to shortness of breath. Patient then was discharged last September 27 and was diagnosed with 1. Acute on chronic CHF exacerbation BNP 1644, 2. Cardiomyopathy ejection fraction 15 %, 3. Chest pain likely costochondritis, 4. Hypokalemia , 5. JERRELL , 6. Morbid obesity, 7. History of hypertension , 8. History of peptic ulcer disease, 8. Bilateral pedal edema. Patient states he still feels very short of breath, worsening by pedal edema, with orthopnea. Chief Complaint: Shortness of Breath Time Seen by MD: 05:38 Reviewed Notes: Nurses Notes Allergies: Coded Allergies: NO KNOWN ALLERGIES (Unverified , 06/19/22) Home Meds Active Scripts Cyclobenzaprine HCl (Cyclobenzaprine Hydrochlo) 5 Mg Tab, 5 MG PO QHSP PRN for 5 Days, #5 TAB Prov:BRENDA OJEDA DO 10/06/22 Lisinopril (Lisinopril) 20 Mg Tab, 1 TAB PO DAILY, #90 TAB 3 Refills Prov:JURGNE MI MD 06/24/22 Carvedilol (Coreg) 6.25 Mg Tab, 1 TAB PO BID, #180 TAB 3 Refills Prov:JURGEN MI MD 06/24/22 Sucralfate (Sucralfate) 1 Gm Tab, 1 GM PO QID, #120 TAB Prov:JURGEN MI MD 06/24/22 Pantoprazole Sodium Sesquihydr (Pantoprazole Sodium) 40 Mg Tab, 40 MG PO BID, #60 TAB Prov:JURGEN MI MD 06/24/22 Folic Acid (Folic Acid) 1 Mg Tab, 1 MG PO DAILY, #30 TAB Prov:JURGEN MI MD 06/24/22 Thiamine Hcl (Thiamine Hcl) 100 Mg Tab, 1 TAB PO DAILY, #30 TAB Prov:JURGEN MI MD 06/24/22 Reported Medications Bumetanide (Bumetanide) 1 Mg Tab, 1 TAB PO TID 10/09/24 Sacubitril-Valsartan (Entresto 24-26 mg) 1 Tab Tab, 1 TAB PO BID, TAB 10/06/22 Potassium Chloride (POTASSIUM CHLORIDE CR) 10 Meq Tb, 1 TAB PO DAILY, #30 TAB 5 Refills 10/06/22 Information Source: Patient Mode of Arrival: Ambulatory Severity: Moderate Timing: Hours Duration: Since onset Prehospital treatment: None Associated Signs and Symptoms: SOB Past Medical History PAST MEDICAL HISTORY: CHF, HTN Surgical History: Denies all surgeries Family History Family History: Reviewed,noncontributory to illness Social History Smoker: Non-Smoker Alcohol: Denies ETOH Use Drugs: Denies Drug Use Lives In: Home Constitutional: denies: chills, diaphoresis, fatigue, fever, malaise, sweats, weakness, others EENTM: denies: blurred vision, double vision, ear bleeding, ear discharge, ear drainage, ear pain, ear ringing, eye pain, eye redness, hearing loss, mouth pain, mouth swelling, nasal discharge, nose bleeding, nose congestion, nose pain, photophobia, tearing, throat pain, throat swelling, voice changes, others Respiratory: reports: orthopnea, SOB at rest, shortness of breath, SOB with excertion; denies: cough, hemoptysis, stridor, wheezing, others Cardiovascular: denies: chest pain, dizzy spells, diaphoresis, Dyspnea on exertion, edema, irregular heart beat, left arm pain, lightheadedness, palpitations, PND, syncope, others Gastrointestinal: denies: abdomen distended, abdominal pain, blood streaked bowels, constipated, diarrhea, dysphagia, difficulty swallowing, hematemesis, melena, nausea, poor appetite, poor fluid intake, rectal bleeding, rectal pain, vomiting, others Genitourinary: denies: burning, dysuria, flank pain, frequency, hematuria, incontinence, penile discharge, penile sore, pain, testicle pain, testicle swelling, urgency, others Neurological: denies: dizziness, fainting, headache, left sided numbness, left sided weakness, numbness, paresthesia, pre-existing deficit, right sided numbness, right sided weakness, seizure, speech problems, tingling, tremors, weakness, others Musculoskeletal: denies: back pain, gout, joint pain, joint swelling, muscle pain, muscle stiffness, neck pain, others Integumetry: denies: bruises, change in color, change in hair/nails, dryness, laceration, lesions, lumps, rash, wounds, others Allergic/Immunocompromised: denies: Difficulty Healing, Frequent Infections, Hives, Itching, others Hematologic/Lymphatic: denies: anemia, blood clots, easy bleeding, easy bruising, swollen glands, others Endocrine: denies: excessive hunger, excessive sweating, excessive thirst, excessive urination, flushing, intolerance to cold, intolerance to heat, unexplained weight gain, unexplained weight loss, others Psychiatric: denies: anxiety, bipolar disorder, depression, hopeless, panic disorder, schizophrenia, sleepless, suicidal, others Physical Exam General Appearance: No Apparent Distress, Normal HEENT: Normal ENT Inspection, Pharynx Normal, TMs Normal Neck: Full Range of Motion, Non-Tender, Normal, Normal Inspection Respiratory: Chest Non-Tender, Lungs Clear, No Accessory Muscle Use, No Respiratory Distress, Normal Breath Sounds Cardiovascular: No Edema, No JVD, No Murmur, No Gallop, Normal Peripheral Pulses, Regular Rate/Rhythm Breast Exam: Deferred Gastrointestinal: No Organomegaly, Non Tender, No Pulsatile Mass, Normal Bowel Sounds, Soft Genitalia: Deferred Pelvic: Deferred Rectal: Deferred Extremities: No calf tenderness, Normal capillary refill, Normal inspection, Normal range of motion, Non-tender, No pedal edema Musculoskeletal : Apperance: Normal Neurologic: Alert, fire hydrant mechanic II-XII nml as Tested, No Motor Deficits, Normal Affect, Normal Mood, No Sensory Deficits Cerebellar Function: Normal Reflexes: Normal Skin: Dry, Normal Color, Warm Lymphatic: No Adenopathy Was a procedure done? Was a procedure done?: No CP Differential Dx Differential Diagnosis: Angina, Anxiety / Panic Attack Differential Diagnosis: CHF Differential Diagnosis: Angina, Chest Wall Pain, Costochondritis, Esophageal reflux/spasm, Gastritis X-Ray, Labs, Meds, VS Vital Signs Date Time Temp Pulse Resp B/P (MAP) Pulse Ox O2 Delivery O2 Flow Rate FiO2 10/09/24 10:00 114/78 10/09/24 10:00 114/78 10/09/24 08:43 116/79 10/09/24 08:24 92 18 116/79 10/09/24 07:55 98.2 92 18 116/79 (91) 97 98.2 10/09/24 04:23 97.7 97 18 106/73 (84) 97 97.7 Lab Test 10/09/24 08:52 10/09/24 07:09 10/09/24 06:05 Range/Units Troponin I High Sensitivity 11 12 13 </=54 ng/L White Blood Count 7.8 4.4-10.8 10^3/uL Red Blood Count 3.96 L 4.5-5.90 10^6/uL Hemoglobin 12.2 L 13.5-17.5 g/dL Hematocrit 37.5 L 41.0-53.0 % Mean Corpuscular Volume 94.5 80.0-100.0 fL Mean Corpuscular Hemoglobin 30.9 28.0-32.0 pg Mean Corpuscular Hemoglobin Concent 32.7 32.0-36.0 g/dL Red Cell Distribution Width 19.6 H 11.8-14.3 % Platelet Count 201 140-450 10^3/uL Mean Platelet Volume 9.4 6.9-10.8 fL Neutrophils (%) (Auto) 62.3 37.0-80.0 % Lymphocytes (%) (Auto) 26.0 10.0-50.0 % Monocytes (%) (Auto) 10.4 0.0-12.0 % Eosinophils (%) (Auto) 0.5 0.0-7.0 % Basophils (%) (Auto) 0.8 0.0-2.0 % Neutrophils # (Auto) 4.9 1.6-8.6 10 ^3/uL Lymphocytes # (Auto) 2.0 0.4-5.4 10 ^3/uL Monocytes # (Auto) 0.8 0-1.3 10 ^3/uL Eosinophils # (Auto) 0 0-0.8 10 ^3/uL Basophils # (Auto) 0.1 0-0.2 10 ^3/uL Nucleated Red Blood Cells 0.1 % Sodium Level 142 136-145 mmol/L Potassium Level 3.7 3.5-5.1 mmol/L Chloride Level 105 98-107 mmol/L Carbon Dioxide Level 29 20-31 mmol/L Anion Gap 8 5-15 Blood Urea Nitrogen 21 9-23 mg/dL Creatinine 1.38 H 0.700-1.30 mg/dL Glomerular Filtration Rate Calc 68 >90 mL/min BUN/Creatinine Ratio 15.2 10.0-20.0 Serum Glucose 99 74-106 mg/dL Calcium Level 9.6 8.7-10.4 mg/dL B-Type Natriuretic Peptide 995.72 0-100 pg/mL Time of 1ST Reevaluation: 05:39 Reevaluation 1ST: Unchanged Patient Education/Counseling: Diagnosis, Treatment Family Education/Counseling: No Family Present Departure 1 Departure Time of Disposition: 05:20 (Patient presented with acute shortness of breath concerning for acute on chronic COPD Exacerbation, Pneumonia, ACS, CHF, Pneumothorax. Less likely PE, Dissection. Data: 1. I ordered and reviewed the result of at least 3 labs including a CBC, BMP, and Troponin. 2. I independently interpreted the following tests: Chest X-ray shows .Risk:This patient has a high risk of morbidity due to further diagnostic testing or treatment and may suffer from respiratory or cardiac etiology . Workup reveals a likely COPD Exacerbation and patient should be admitted for further workup. and possible expert consultation.) Impression: Primary Impression: Acute and chronic respiratory failure Additional Impression: Shortness of breath Disposition: ADMITTED INPATIENT Admit to: Med Surg Condition: Serious Critical Care Note Critical Care Time?: Yes (35 min-critical care time only) Critical care comment: Shortness of breath Stability Stability form required: No Heart Score Heart Score: Heart Score Response (Comments) Value History Moderate Suspicious [address]-Deviation 2 Age 45-64 1 Risk Factors >3 or Hx ASHD 2 Troponin Normal limit 0 Total 6 I personally scribed for KAMALA BRODY MD ([email or web address]) on 10/09/24 at 05:40. Electronically submitted by Dano Velez ([email or web address]). KAMALA BRODY MD October 09, 2024 05:40
--- NOTE | 2024-10-09 05:56 | DVH ---
CHEST RADIOGRAPH Indication: sob Technique: Single frontal view of the chest was obtained COMPARISON: XY CHEST XRAY 1 VIEW on DOS: 04/24/23, XY CHEST PORTABLE on DOS: 04/23/23, XY CHEST XRAY 1 VIEW on DOS: 10/06/22, CXRP on DOS: 06/19/22, CHEST PORTABLE on DOS: 06/19/22 FINDINGS: Lines and Tubes: None Lungs: Clear Pleura: No effusion. No pneumothorax. Cardiomediastinal contours: Cardiomegaly Bones: Unremarkable IMPRESSION: Cardiomegaly
[2024-10-09 06:48] LABS: Basophils # (auto) 0.1 10 ^3/uL (0-0.2); Basophils % (auto) 0.8 % (0.0-2.0); Eosinophils # (auto) 0 10 ^3/uL (0-0.8); Eosinophils % (auto) 0.5 % (0.0-7.0); Hematocrit 37.5 % (41.0-53.0); Hemoglobin 12.2 g/dL (13.5-17.5); Mean Corpuscular Hemoglobin 30.9 pg (28.0-32.0); Mean Corpuscular Hgb Conc. 32.7 g/dL (32.0-36.0); Mean Corpuscular Volume 94.5 fL (80.0-100.0); Monocytes # (auto) 0.8 10 ^3/uL (0-1.3); Monocytes % (auto) 10.4 % (0.0-12.0); Neutrophils # (auto) 4.9 10 ^3/uL (1.6-8.6); Neutrophils % (auto) 62.3 % (37.0-80.0); Nucleated Red Blood Cells % 0.1 %; Platelet Count (auto) 201 10^3/uL (140-450); Red Blood Cells 3.96 10^6/uL (4.5-5.90); Red Cell Distribution Width 19.6 % (11.8-14.3); White Blood Cell 7.8 10^3/uL (4.4-10.8)
[2024-10-09 06:52] LABS: Anion Gap 8 (5-15); Carbon Dioxide 29 mmol/L (20-31); Chloride 105 mmol/L (98-107); Potassium 3.7 mmol/L (3.5-5.1); Sodium 142 mmol/L (136-145)
[2024-10-09 06:53] LABS: Calcium 9.6 mg/dL (8.7-10.4)
[2024-10-09 06:58] LABS: BUN/Creatinine Ratio 15.2 (10.0-20.0); Blood Urea Nitrogen 21 mg/dL (9-23); Glucose 99 mg/dL (74-106)
[2024-10-09] MEDS ORDERED: BUME1TAB3 PO (07:55)
--- NOTE | 2024-10-09 07:56 | DVHHP2 ---
History of Present Illness Reason for Visit: SOB History of Present Illness Ronnell Barreto is a 39-year-old male with past medical history of hypertension, CHF, and peptic ulcer disease who presents to the ED with shortness of breath and bilateral lower extremity swelling x3 weeks. Patient reports that his shortness of breath has been ongoing for a year on and off. He states that he was taking Lasix 3 times a week now changed to every day. He states that it was working until about 3 weeks ago. He also endorses pain in his lower extremities. States that it feels like his skin is being stretched out. States the pain is 9/10 and constant. Patient denies any recent trauma or injury, recent sick contacts, recent travels, recent ingestion of spoiled food, abdominal pain, nausea, vomiting, diarrhea, lightheadedness, weakness, dizziness, fever, or chills. Patient also denies using oxygen at home however upon evaluation patient is using 2 L nasal cannula. Patient was recently seen here on 09/25/2024 and seen by Cardiology. Cardiovascular: CHF, HTN GI: Peptic Ulcer disease Past Surgical History: None Family History: Other (Mom with heart failure and . Grandfather with CABG. Uncle with CHF and .) Smoke: No ALCOHOL: none Drugs: None Lives: with Family Domestic Violence: Neg Review of Systems Respiratory: Shortness of breath Cardiovascular: Edema Musculoskeletal: foot pain Allergies: Coded Allergies: NO KNOWN ALLERGIES (Unverified , 06/19/22) Medications Current Medications Medications Dose Ordered Sig/Nikita Route Start Time Stop Time Status Last Admin Dose Admin Ondansetron HCl 4 mg Q4HP PRN IV 10/09/24 08:00 UNV Enoxaparin Sodium 40 mg DAILY SC 10/09/24 10:00 UNV Acetaminophen 650 mg Q6HP PRN PO 10/09/24 08:00 UNV Exam Vital Signs Vital Signs Date Time Temp Pulse Resp B/P (MAP) Pulse Ox O2 Delivery O2 Flow Rate FiO2 10/09/24 04:23 97.7 97 18 106/73 (84) 97 97.7 General Appearance: Alert, Oriented X3, Cooperative, mild distress HEENT: Atraumatic, PERRLA, EOMI, Mucous membr. moist/pink Respiratory: Normal air movement Cardiovascular: Regular rate, Normal S1, Normal S2 Abdominal: Normal bowel sounds, Soft Neuro: Normal speech, Normal tone, Sensation intact Psych/Mental Status: Mental status NL, Mood NL Labs/Xrays Labs Test 10/09/24 07:09 10/09/24 06:05 Range/Units Troponin I High Sensitivity 12 </=54 ng/L White Blood Count 7.8 4.4-10.8 10^3/uL Red Blood Count 3.96 L 4.5-5.90 10^6/uL Hemoglobin 12.2 L 13.5-17.5 g/dL Hematocrit 37.5 L 41.0-53.0 % Mean Corpuscular Volume 94.5 80.0-100.0 fL Mean Corpuscular Hemoglobin 30.9 28.0-32.0 pg Mean Corpuscular Hemoglobin Concent 32.7 32.0-36.0 g/dL Red Cell Distribution Width 19.6 H 11.8-14.3 % Platelet Count 201 140-450 10^3/uL Mean Platelet Volume 9.4 6.9-10.8 fL Neutrophils (%) (Auto) 62.3 37.0-80.0 % Lymphocytes (%) (Auto) 26.0 10.0-50.0 % Monocytes (%) (Auto) 10.4 0.0-12.0 % Eosinophils (%) (Auto) 0.5 0.0-7.0 % Basophils (%) (Auto) 0.8 0.0-2.0 % Neutrophils # (Auto) 4.9 1.6-8.6 10 ^3/uL Lymphocytes # (Auto) 2.0 0.4-5.4 10 ^3/uL Monocytes # (Auto) 0.8 0-1.3 10 ^3/uL Eosinophils # (Auto) 0 0-0.8 10 ^3/uL Basophils # (Auto) 0.1 0-0.2 10 ^3/uL Nucleated Red Blood Cells 0.1 % Sodium Level 142 136-145 mmol/L Potassium Level 3.7 3.5-5.1 mmol/L Chloride Level 105 98-107 mmol/L Carbon Dioxide Level 29 20-31 mmol/L Anion Gap 8 5-15 Blood Urea Nitrogen 21 9-23 mg/dL Creatinine 1.38 H 0.700-1.30 mg/dL Glomerular Filtration Rate Calc 68 >90 mL/min BUN/Creatinine Ratio 15.2 10.0-20.0 Serum Glucose 99 74-106 mg/dL Calcium Level 9.6 8.7-10.4 mg/dL B-Type Natriuretic Peptide 995.72 0-100 pg/mL CHEST RADIOGRAPH Indication: sob Technique: Single frontal view of the chest was obtained COMPARISON: XY CHEST XRAY 1 VIEW on DOS: 04/24/23, XY CHEST PORTABLE on DOS: 04/23/23, XY CHEST XRAY 1 VIEW on DOS: 10/06/22, CXRP on DOS: 06/19/22, CHEST PORTABLE on DOS: 06/19/22 FINDINGS: Lines and Tubes: None Lungs: Clear Pleura: No effusion. No pneumothorax. Cardiomediastinal contours: Cardiomegaly Bones: Unremarkable IMPRESSION: Cardiomegaly Assessment/Plan Assessment/Plan Assessment Acute on chronic CHF exacerbation Cardiomyopathy HFrEF, 15% Cardiomegaly JERRELL Morbid obesity Acute hypoxic respiratory failure History of hypertension History of peptic ulcer disease Plan Admit to tele Supportive oxygen Diurese Troponin negative Chest x-ray noted BNP UA UDS Strict I&Os Daily weights Diet Last echo on 09/24/2024 EF 15% Home medications reconciled DVT prophylaxis-Lovenox PUD prophylaxis-PPIs Discussed plan of care with patient and nurse Counseled patient on lifestyle modifications, diet, and exercise Rounding team consider Cardiology consult Plan discussed with: Patient My Orders Orders - GRAYSON SANTIAGO PROP WORKER Procedure Category Date Status Time Admit ADMIT 10/09/24 Transmitted 07:53 Allergies MARIA ISABEL 10/09/24 Transmitted 07:53 Code Status CODE 10/09/24 Transmitted 07:53 Ondansetron Hcl PHA 10/09/24 Logged (Zofran) 08:00 Enoxaparin Sodium PHA 10/09/24 Logged (Lovenox) 10:00 Complete Blood Count LAB 10/10/24 Verified 04:00 Comprehensive LAB 10/10/24 Verified Metabolic Panel 04:00 Cardiac DIET 10/09/24 Transmitted Diet-2gna,Lofat,Lochol Breakfast Acetaminophen Tablet PHA 10/09/24 Logged (Tylenol Tablet) 08:00 Nitroglycerin PHA 10/09/24 Transmitted Sublingual (Ntrostat 08:00 Morphine Sulfate PHA 10/09/24 Transmitted Injection 08:00 Stat Ekg For Chest MARIA ISABEL 10/09/24 Transmitted Pain 07:53 Notify Of Changes MARIA ISABEL 10/09/24 Transmitted From Base 07:53 Licensed Loan Officer Assistant For MARIA ISABEL 10/09/24 Transmitted 24 Hours 07:53 Emergency Dysrhythmia MARIA ISABEL 10/09/24 Transmitted Protocol 07:53 Rhythm Strips Once [facility] 10/09/24 Transmitted Every Shift 07:53 Oxygen By Nasal RT 10/09/24 Transmitted Cannula 07:53 Furosemide Injection PHA 10/09/24 Transmitted (Lasix Injection) 10:00 Strict I & O MARIA ISABEL 10/09/24 Transmitted 07:53 Daily Weight [facility] 10/09/24 Transmitted 07:53 Date of Service: October 09, 2024 Billing Provider: GRAYSON SANTIAGO Common Visit Codes: [id number] INP/OBS CARE (HIGH) GRAYSON SANTIAGO October 09, 2024 07:56
[2024-10-09] MEDS ORDERED: NITROGLYCERIN 0.4 MG SL TAB SL PRN (08:00)
[2024-10-09] MEDS ORDERED: MORPHINE SULFATE INJ 2 MG/ml SYRG IV PRN (08:00)
[2024-10-09] MEDS: ONDANSETRON HCL 4 MG/2 ML VIAL IV ONE (08:23)
[2024-10-09] MEDS: MORPHINE SULFATE 4 MG/ML SYR/VIAL IV ONE (08:24)
[2024-10-09] MEDS ORDERED: MORPHINE SULFATE 4 MG/ML SYR/VIAL IV PRN (08:30)
[2024-10-09] MEDS: FUROSEMIDE 40 MG/4 ML VIAL ONE (08:43)
[2024-10-09] MEDS: FUROSEMIDE 40 MG/4 ML VIAL IV ONE ×2 (08:43→10:00)
[2024-10-09] MEDS ORDERED: PATIENTS OWN MEDICATION (Folic Acid 1 MG) PO SCH (10:00)
[2024-10-09] MEDS: LISINOPRIL 20 MG TAB PO SCH (10:00)
[2024-10-09] MEDS ORDERED: PATIENTS OWN MEDICATION (Carvedilol (Coreg) 1 TAB) PO SCH (10:00)
[2024-10-09] MEDS: ENOXAPARIN SOD 40 MG/0.4 ML SYRINGE SC SCH (10:57)
[2024-10-09] MEDS: SACUBITRIL-VALSARTAN 24mg/26mg TAB PO SCH (10:57)
[2024-10-09] MEDS: FOLIC ACID 1 MG TAB PO SCH (10:57)
[2024-10-09] MEDS: THIAMINE HCL 100 MG TAB PO SCH (10:57)
[2024-10-09] MEDS: CARVEDILOL 3.125 MG TAB PO SCH (10:58)
[2024-10-09] MEDS: PANTOPRAZOLE 40 MG TAB PO SCH (10:58)
--- NOTE | 2024-10-09 12:19 | DVH ---
US BiLat Lower DVT HISTORY: r/o dvt COMPARISON: US BILAT LOWER DVT on DOS: 09/25/24 TECHNIQUE: Duplex doppler evaluation of the deep venous system of the lower extremity from the common femoral veins, superficial femoral vein, great saphenous vein, deep femoral vein, popliteal vein, an d calf veins, including color doppler and spectral/pulsed waveform analysis, was performed. FINDINGS: Right: - Common femoral vein: Compressible - Deep femoral vein: Compressible - Femoral vein: Compressible - Popliteal vein: Compressible - Posterior tibial vein: Waveforms present - Peroneal vein: Waveforms present - Other: Nothing Left: - Common femoral vein: Compressible - Deep femoral vein: Compressible - Femoral vein: Compressible - Popliteal vein: Compressible - Posterior tibial vein: Waveforms present - Peroneal vein: Waveforms present - Other: Nothing IMPRESSION: No right or left lower extremity deep venous thrombosis.
[2024-10-09] MEDS: SUCRALFATE 1 GM TAB PO SCH (12:48)
[2024-10-09 12:50] VITALS: PULSE 91; RESP 13; O2SAT 95
[2024-10-09] MEDS: HYDROcodone-ACET 5/325MG TAB PO PRN (13:04)
[2024-10-09] MEDS: ONDANSETRON HCL 4 MG/2 ML VIAL IV PRN (13:04)
[2024-10-09 13:26] LABS: Urine Bacteria None Seen /hpf (None Seen)
[2024-10-09 13:35] LABS: Urine Blood Negative /uL (Negative); Urine Clarity Clear (Clear); Urine Color Light-Yellow (Yellow); Urine Hyaline Cast FEW /lpf (0 - 2); Urine Protein, UAD Negative (Negative); Urine Specific Gravity 1.008 (1.001-1.035); Urine Squamous Epithelial Cell None Seen /hpf (<5); Urine Urobilinogen Normal (Negative); Urine pH 5.5 (5.0-9.0)
[2024-10-09 13:46] LABS: Opiate Scree,Urine Neg (NEGATIVE)
[2024-10-09 13:49] LABS: Amphetamine Screen, Urine Neg (NEGATIVE); Barbiturate Scree,Urine Neg (NEGATIVE); Benzodiazephine Screen, Urine Neg (NEGATIVE); Cannabinoid Screen, Urine Neg (NEGATIVE); Cocaine Screen, Urine Neg (NEGATIVE); Phencyclidine Screen, Urine Neg (NEGATIVE)
[2024-10-09] MEDS ORDERED: MORPHINE SULFATE INJ 2 MG/ml SYRG IV ONE (17:15)
[2024-10-09 19:35] VITALS: PULSE 90; RESP 14; O2SAT 95
[2024-10-09] MEDS: HYDROmorphone HCL 2 MG/ML VL/or syr IV ONE (20:14)
--- NOTE | 2024-10-09 22:44 | DVHINCON2 ---
Date of service: October 09, 2024 Referring Physician Brenda Ojeda MD Reason for Consultation Acute kidney injury History of Present Illness Ronnell Barreto is a 39-year-old male with a Past Medical History pertinent for Hypertension, Congestive Heart Failure and Peptic Ulcer Disease who presented to the hospital with complaint of shortness of breath and bilateral lower extremity swelling x 3 weeks. Patient reports that his shortness of breath has been ongoing for a year on and off. He reports taking Lasix 3 times a week now changed to every day for about the past 3 weeks. He also endorses pain in his lower extremities. Denies using oxygen at home however upon evaluation patient is using 2 L nasal cannula. Chest x-ray reported cardiomegaly. Labs were remarkable for Creatinine 1.38. Patient is admitted under the care of Dr. Ojeda. I was asked to consult. Allergies: Coded Allergies: NO KNOWN ALLERGIES (Unverified , 06/19/22) Home Meds Active Scripts Cyclobenzaprine HCl (Cyclobenzaprine Hydrochlo) 5 Mg Tab, 5 MG PO QHSP PRN for 5 Days, #5 TAB Prov:BRENDA OJEDA DO 10/06/22 Lisinopril (Lisinopril) 20 Mg Tab, 1 TAB PO DAILY, #90 TAB 3 Refills Prov:JURGEN MI MD 06/24/22 Carvedilol (Coreg) 6.25 Mg Tab, 1 TAB PO BID, #180 TAB 3 Refills Prov:JURGEN MI MD 06/24/22 Sucralfate (Sucralfate) 1 Gm Tab, 1 GM PO QID, #120 TAB Prov:JURGEN MI MD 06/24/22 Pantoprazole Sodium Sesquihydr (Pantoprazole Sodium) 40 Mg Tab, 40 MG PO BID, #60 TAB Prov:JURGEN MI MD 06/24/22 Folic Acid (Folic Acid) 1 Mg Tab, 1 MG PO DAILY, #30 TAB Prov:JURGEN MI MD 06/24/22 Thiamine Hcl (Thiamine Hcl) 100 Mg Tab, 1 TAB PO DAILY, #30 TAB Prov:JURGEN MI MD 06/24/22 Reported Medications Bumetanide (Bumetanide) 1 Mg Tab, 1 TAB PO TID 10/09/24 Sacubitril-Valsartan (Entresto 24-26 mg) 1 Tab Tab, 1 TAB PO BID, TAB 10/06/22 Potassium Chloride (POTASSIUM CHLORIDE CR) 10 Meq Tb, 1 TAB PO DAILY, #30 TAB 5 Refills 10/06/22 Current Medications Current Medications Medications (Trade) Dose Ordered Sig/Nikita Route PRN Reason Start Time Stop Time Status Last Admin Furosemide (Lasix Injection) 40 mg BIDD IV 10/10/24 18:00 10/10/24 12:35 DC Furosemide (Lasix Injection) 80 mg TID IV 10/10/24 12:45 10/10/24 21:33 Family History: Patient reports no known family medical history. Review of Systems Respiratory: Shortness of breath Cardiovascular: Edema Musculoskeletal: Foot pain All other systems reviewed and negative unless otherwise noted in HPI. H&P Exam Vital Signs/I&O Vital Sign Date Time Temp Pulse Resp B/P (MAP) Pulse Ox O2 Delivery O2 Flow Rate FiO2 10/10/24 21:34 87 104/70 10/10/24 20:58 92.8 16 93 92.8 10/10/24 19:57 Nasal Cannula* 2 28 Intake and Output 10/09/24 10/10/24 19:00 07:00 Intake Total 125 ml Output Total 325 ml Balance -200 ml Intake Oral 125 ml Output Urine Total 325 ml Physical Exam Vitals and nursing notes reviewed. General Appearance: Cooperative, mild distress HEENT: Atraumatic, PERRLA, EOMI, Mucous membr. moist/pink Respiratory: Normal air movement Cardiovascular: Regular rate, Normal S1, Normal S2 Abdominal: Normal bowel sounds, Soft Musculoskeletal: No extremity deformity. Neuro: Alert, Oriented X3, Normal speech, Normal tone, Sensation intact Psych/Mental Status: Mental status NL, Mood NL Labs/Diagnostic Data Labs/Diagnostic Data Laboratory Tests Test 10/10/24 05:50 10/09/24 13:07 10/09/24 08:52 10/09/24 07:09 Range/Units White Blood Count 6.8 4.4-10.8 10^3/uL Red Blood Count 3.84 L 4.5-5.90 10^6/uL Hemoglobin 12.0 L 13.5-17.5 g/dL Hematocrit 36.2 L 41.0-53.0 % Mean Corpuscular Volume 94.4 80.0-100.0 fL Mean Corpuscular Hemoglobin 31.4 28.0-32.0 pg Mean Corpuscular Hemoglobin Concent 33.2 32.0-36.0 g/dL Red Cell Distribution Width 19.3 H 11.8-14.3 % Platelet Count 172 140-450 10^3/uL Mean Platelet Volume 9.3 6.9-10.8 fL Neutrophils (%) (Auto) 68.4 37.0-80.0 % Lymphocytes (%) (Auto) 22.3 10.0-50.0 % Monocytes (%) (Auto) 7.8 0.0-12.0 % Eosinophils (%) (Auto) 0.6 0.0-7.0 % Basophils (%) (Auto) 0.9 0.0-2.0 % Neutrophils # (Auto) 4.6 1.6-8.6 10 ^3/uL Lymphocytes # (Auto) 1.5 0.4-5.4 10 ^3/uL Monocytes # (Auto) 0.5 0-1.3 10 ^3/uL Eosinophils # (Auto) 0 0-0.8 10 ^3/uL Basophils # (Auto) 0.1 0-0.2 10 ^3/uL Nucleated Red Blood Cells 0.3 % Sodium Level 141 136-145 mmol/L Potassium Level 3.9 3.5-5.1 mmol/L Chloride Level 104 98-107 mmol/L Carbon Dioxide Level 30 20-31 mmol/L Anion Gap 7 5-15 Blood Urea Nitrogen 19 9-23 mg/dL Creatinine 1.31 H 0.700-1.30 mg/dL Glomerular Filtration Rate Calc 72 >90 mL/min BUN/Creatinine Ratio 14.5 10.0-20.0 Serum Glucose 95 74-106 mg/dL Calcium Level 9.5 8.7-10.4 mg/dL Total Bilirubin 2.2 H 0.2-1.0 mg/dL Aspartate Amino Transferase (AST) 27 13-40 U/L Alanine Aminotransferase (ALT) 18 7-40 U/L Alkaline Phosphatase 100 46-116 U/L Total Protein 7.0 5.7-8.2 g/dL Albumin 4.0 3.2-4.8 g/dL Urine Color Light-yellow Yellow Urine Clarity Clear Clear Urine pH 5.5 5.0-9.0 Urine Specific [place] 1.008 1.001-1.035 Urine Protein Negative Negative Urine Ketones Negative Negative Urine Blood Negative Negative /uL Urine Nitrite Negative Negative Urine Bilirubin Negative Negative Urine Urobilinogen Normal Negative mg/dL Urine Leukocyte Esterase Negative Negative /uL Urine RBC None seen 0 - 3 /hpf Urine Microscopic WBC 0-3 /HPF Urine Squamous Epithelial Cells None seen <5 /hpf Urine Bacteria None seen None Seen /hpf Urine Hyaline Casts Few 0 - 2 /lpf Urine Glucose Normal Normal mg/dL Urine Opiates Screen Neg NEGATIVE Urine Fentanyl Screen Neg NEGATIVE Urine Barbiturates Screen Neg NEGATIVE Urine Phencyclidine Screen Neg NEGATIVE Urine Amphetamines Screen Neg NEGATIVE Urine Benzodiazepines Screen Neg NEGATIVE Urine Cocaine Screen Neg NEGATIVE Urine Cannabinoids Screen Neg NEGATIVE Troponin I High Sensitivity 11 12 </=54 ng/L Test 10/09/24 06:05 Range/Units White Blood Count 7.8 4.4-10.8 10^3/uL Red Blood Count 3.96 L 4.5-5.90 10^6/uL Hemoglobin 12.2 L 13.5-17.5 g/dL Hematocrit 37.5 L 41.0-53.0 % Mean Corpuscular Volume 94.5 80.0-100.0 fL Mean Corpuscular Hemoglobin 30.9 28.0-32.0 pg Mean Corpuscular Hemoglobin Concent 32.7 32.0-36.0 g/dL Red Cell Distribution Width 19.6 H 11.8-14.3 % Platelet Count 201 140-450 10^3/uL Mean Platelet Volume 9.4 6.9-10.8 fL Neutrophils (%) (Auto) 62.3 37.0-80.0 % Lymphocytes (%) (Auto) 26.0 10.0-50.0 % Monocytes (%) (Auto) 10.4 0.0-12.0 % Eosinophils (%) (Auto) 0.5 0.0-7.0 % Basophils (%) (Auto) 0.8 0.0-2.0 % Neutrophils # (Auto) 4.9 1.6-8.6 10 ^3/uL Lymphocytes # (Auto) 2.0 0.4-5.4 10 ^3/uL Monocytes # (Auto) 0.8 0-1.3 10 ^3/uL Eosinophils # (Auto) 0 0-0.8 10 ^3/uL Basophils # (Auto) 0.1 0-0.2 10 ^3/uL Nucleated Red Blood Cells 0.1 % Sodium Level 142 136-145 mmol/L Potassium Level 3.7 3.5-5.1 mmol/L Chloride Level 105 98-107 mmol/L Carbon Dioxide Level 29 20-31 mmol/L Anion Gap 8 5-15 Blood Urea Nitrogen 21 9-23 mg/dL Creatinine 1.38 H 0.700-1.30 mg/dL Glomerular Filtration Rate Calc 68 >90 mL/min BUN/Creatinine Ratio 15.2 10.0-20.0 Serum Glucose 99 74-106 mg/dL Calcium Level 9.6 8.7-10.4 mg/dL Troponin I High Sensitivity 13 </=54 ng/L B-Type Natriuretic Peptide 995.72 0-100 pg/mL Microbiology Date/Time Source Procedure Growth Status 10/10/24 02:00 Nose MRSA Screen - Final Complete Assessment Acute on chronic CHF exacerbation Cardiomegaly JERRELL Morbid obesity Acute hypoxic respiratory failure History of hypertension History of peptic ulcer disease Plan/Recommendation Agreement with your ongoing assessment and plan of care. Daily lab monitoring to include renal function and electrolytes. Electrolyte replacement prn. Diuretics with Lasix. Strict Intake/Output. Avoid nephrotoxic medications. Home medications resumed. Pain management prn. GI/DVT prophylaxis. Additional plan as per the hospital course. Plan discussed with: Patient, Other (RN) HARJINDER CROFT DO October 09, 2024 22:44
[2024-10-09 22:45] VITALS: PULSE 100; RESP 24; O2SAT 96
[2024-10-10] VITALS (7 sets, daily range): BP systolic 100–117; BP diastolic 69–84; PULSE 42–96; RESP 16–20; TEMP 92.8–98.4; O2SAT 93–99
[2024-10-10] MEDS: ACETAMINOPHEN 325 MG TAB PO PRN (01:58)
[2024-10-10 06:43] LABS: Basophils # (auto) 0.1 10 ^3/uL (0-0.2); Basophils % (auto) 0.9 % (0.0-2.0); Eosinophils # (auto) 0 10 ^3/uL (0-0.8); Eosinophils % (auto) 0.6 % (0.0-7.0); Hematocrit 36.2 % (41.0-53.0); Lymphocytes # (auto) 1.5 10 ^3/uL (0.4-5.4); Lymphocytes % (auto) 22.3 % (10.0-50.0); Mean Corpuscular Hemoglobin 31.4 pg (28.0-32.0); Mean Corpuscular Hgb Conc. 33.2 g/dL (32.0-36.0); Mean Corpuscular Volume 94.4 fL (80.0-100.0); Monocytes # (auto) 0.5 10 ^3/uL (0-1.3); Monocytes % (auto) 7.8 % (0.0-12.0); Neutrophils # (auto) 4.6 10 ^3/uL (1.6-8.6); Neutrophils % (auto) 68.4 % (37.0-80.0); Nucleated Red Blood Cells % 0.3 %; Platelet Count (auto) 172 10^3/uL (140-450); Red Blood Cells 3.84 10^6/uL (4.5-5.90); Red Cell Distribution Width 19.3 % (11.8-14.3); White Blood Cell 6.8 10^3/uL (4.4-10.8)
[2024-10-10 07:01] LABS: Alanine Aminotransferase 18 U/L (7-40); Alkaline Phosphatase 100 U/L (46-116); Anion Gap 7 (5-15); Aspartate Aminotransferase 27 U/L (13-40); BUN/Creatinine Ratio 14.5 (10.0-20.0); Blood Urea Nitrogen 19 mg/dL (9-23); Calcium 9.5 mg/dL (8.7-10.4); Carbon Dioxide 30 mmol/L (20-31); Chloride 104 mmol/L (98-107); Glucose 95 mg/dL (74-106); Potassium 3.9 mmol/L (3.5-5.1); Sodium 141 mmol/L (136-145)
[2024-10-10 07:04] LABS: Bilirubin, Total 2.2 mg/dL (0.2-1.0)
--- NOTE | 2024-10-10 10:12 | DVHINCON2 ---
Date of service: October 09, [address] nation Reason for Consultation respiratory failure Obstructive sleep apnea History of Present Illness HPI The patient is a 39-year-old gentleman former smoker with multiple medical problems and that we can to diagnosed congestive heart failure and cardiomyopathy. He presented with increasing swelling of the lower extremities and worsening shortness of breath on exertion. Patient requires supplemental oxygen and was found to have pulmonary edema on chest x-ray. Admitted for intravenous diuresis and further workup Patient reports a history of obstructive sleep apnea and snoring Home Meds Active Scripts Cyclobenzaprine HCl (Cyclobenzaprine Hydrochlo) 5 Mg Tab, 5 MG PO QHSP PRN for 5 Days, #5 TAB Prov:BRENDA NATION DO 10/06/22 Lisinopril (Lisinopril) 20 Mg Tab, 1 TAB PO DAILY, #90 TAB 3 Refills Prov:JURGEN MI MD 06/24/22 Carvedilol (Coreg) 6.25 Mg Tab, 1 TAB PO BID, #180 TAB 3 Refills Prov:JURGEN MI MD 06/24/22 Sucralfate (Sucralfate) 1 Gm Tab, 1 GM PO QID, #120 TAB Prov:JURGEN MI MD 06/24/22 Pantoprazole Sodium Sesquihydr (Pantoprazole Sodium) 40 Mg Tab, 40 MG PO BID, #60 TAB Prov:JURGEN MI MD 06/24/22 Folic Acid (Folic Acid) 1 Mg Tab, 1 MG PO DAILY, #30 TAB Prov:JURGEN MI MD 06/24/22 Thiamine Hcl (Thiamine Hcl) 100 Mg Tab, 1 TAB PO DAILY, #30 TAB Prov:JURGEN MI MD 06/24/22 Reported Medications Bumetanide (Bumetanide) 1 Mg Tab, 1 TAB PO TID 10/09/24 Sacubitril-Valsartan (Entresto 24-26 mg) 1 Tab Tab, 1 TAB PO BID, TAB 10/06/22 Potassium Chloride (POTASSIUM CHLORIDE CR) 10 Meq Tb, 1 TAB PO DAILY, #30 TAB 5 Refills 10/06/22 Past Medical History Cardiac: CHF, HTN Pulmonary: No pertinent Hx Central Nervous System: No pertinent Hx GI: No pertinent Hx Hemotology/Oncology: No pertinent Hx Hepatobiliary: No pertinent Hx Psychiatric: No pertinent Hx Musculoskeletal: No pertinent Hx Rheumotologic: No pertinent Hx Infectious Disease: No peritnent Hx ENT: No pertinent Hx Renal/: No pertinent Hx Endocrine: No pertinent Hx Dermatology: No pertinent Hx Past Surgical History: No pertinent Hx Family History: No pertinent Hx Patient Family History: Patient reports no known family medical history. Review of Systems Constitutional: Malaise, Weakness Ears, Nose, & Throat: No symptom reported Eyes: No symptom reported Pulmonary/Respiratory: Dyspnea, Cough Cardiovascular: Edema Gastrointestinal: No symptom reported Genitourinary: No symptom reported Musculoskeletal: No symptom reported Skin: No symptom reported Psychiatric: No symptom reported Endocrine: No symptom reported Hemotologic/Lymphatic: No symptom reported H&P Exam Vital Signs Vital Signs Date Time Temp Pulse Resp B/P (MAP) Pulse Ox O2 Delivery O2 Flow Rate FiO2 10/10/24 08:45 97.4 42 17 109/84 (92) 99 97.4 10/09/24 22:45 Nasal Cannula* 3 32 General Appeara: Well developed, Well nourished, Normal Appearance Head Exam: Normal inspection Neck Exam: Normal inspection, Non-tender, Normal alignment Eye Exam: bilateral eye Normal inspection, bilateral eye PERRL, bilateral eye EOMI Ear Exam: bilateral ear Auricle normal, bilateral ear Canal normal Nasal Exam: Normal inspection Mouth: Normal Inspection Pulmonary/Respiratory: Normal inspection, Normal breath sounds, Chest non- tender Cardiovascular/Chest: Edema, Regular rate Peripheral Pulses: 4+ carotid (R), 4+ carotid (L) Abdominal Exam: Normal bowel sounds Labs/Xrays Labs Test 10/10/24 05:50 10/09/24 13:07 10/09/24 08:52 10/09/24 06:05 Range/Units White Blood Count 6.8 4.4-10.8 10^3/uL Red Blood Count 3.84 L 4.5-5.90 10^6/uL Hemoglobin 12.0 L 13.5-17.5 g/dL Hematocrit 36.2 L 41.0-53.0 % Mean Corpuscular Volume 94.4 80.0-100.0 fL Mean Corpuscular Hemoglobin 31.4 28.0-32.0 pg Mean Corpuscular Hemoglobin Concent 33.2 32.0-36.0 g/dL Red Cell Distribution Width 19.3 H 11.8-14.3 % Platelet Count 172 140-450 10^3/uL Mean Platelet Volume 9.3 6.9-10.8 fL Neutrophils (%) (Auto) 68.4 37.0-80.0 % Lymphocytes (%) (Auto) 22.3 10.0-50.0 % Monocytes (%) (Auto) 7.8 0.0-12.0 % Eosinophils (%) (Auto) 0.6 0.0-7.0 % Basophils (%) (Auto) 0.9 0.0-2.0 % Neutrophils # (Auto) 4.6 1.6-8.6 10 ^3/uL Lymphocytes # (Auto) 1.5 0.4-5.4 10 ^3/uL Monocytes # (Auto) 0.5 0-1.3 10 ^3/uL Eosinophils # (Auto) 0 0-0.8 10 ^3/uL Basophils # (Auto) 0.1 0-0.2 10 ^3/uL Nucleated Red Blood Cells 0.3 % Sodium Level 141 136-145 mmol/L Potassium Level 3.9 3.5-5.1 mmol/L Chloride Level 104 98-107 mmol/L Carbon Dioxide Level 30 20-31 mmol/L Anion Gap 7 5-15 Blood Urea Nitrogen 19 9-23 mg/dL Creatinine 1.31 H 0.700-1.30 mg/dL Glomerular Filtration Rate Calc 72 >90 mL/min BUN/Creatinine Ratio 14.5 10.0-20.0 Serum Glucose 95 74-106 mg/dL Calcium Level 9.5 8.7-10.4 mg/dL Total Bilirubin 2.2 H 0.2-1.0 mg/dL Aspartate Amino Transferase (AST) 27 13-40 U/L Alanine Aminotransferase (ALT) 18 7-40 U/L Alkaline Phosphatase 100 46-116 U/L Total Protein 7.0 5.7-8.2 g/dL Albumin 4.0 3.2-4.8 g/dL Urine Color Light-yellow Yellow Urine Clarity Clear Clear Urine pH 5.5 5.0-9.0 Urine Specific [place] 1.008 1.001-1.035 Urine Protein Negative Negative Urine Ketones Negative Negative Urine Blood Negative Negative /uL Urine Nitrite Negative Negative Urine Bilirubin Negative Negative Urine Urobilinogen Normal Negative mg/dL Urine Leukocyte Esterase Negative Negative /uL Urine RBC None seen 0 - 3 /hpf Urine Microscopic WBC 0-3 /HPF Urine Squamous Epithelial Cells None seen <5 /hpf Urine Bacteria None seen None Seen /hpf Urine Hyaline Casts Few 0 - 2 /lpf Urine Glucose Normal Normal mg/dL Urine Opiates Screen Neg NEGATIVE Urine Fentanyl Screen Neg NEGATIVE Urine Barbiturates Screen Neg NEGATIVE Urine Phencyclidine Screen Neg NEGATIVE Urine Amphetamines Screen Neg NEGATIVE Urine Benzodiazepines Screen Neg NEGATIVE Urine Cocaine Screen Neg NEGATIVE Urine Cannabinoids Screen Neg NEGATIVE Troponin I High Sensitivity 11 </=54 ng/L B-Type Natriuretic Peptide 995.72 0-100 pg/mL Assessment/Plan Plan Morbid obesity Fluid overload Atelectasis Pulmonary edema Acute hypoxemic respiratory failure Obstructive sleep apnea Patient is seen and examined Labs and imaging studies Reviewed Management plan Supplemental O2 Incentive Spirometry CPAP During sleep ranged from 5-20 cm Bronchodilators Continue diuresis Monitor lytes Replace electrolytes DVT prophylaxis Ultrasound of the legs no evidence of DVT Plan discussed with: Patient TETE TOBIAS MD October 10, 2024 10:12
--- NOTE | 2024-10-10 10:13 | DVHPN2 ---
Progress Note - Dictate Date Seen: October 10, 2024 Medical Necessity Reason Pt with a Central, PICC or Fol: No vital signs Vital Sign Date Time Temp Pulse Resp B/P (MAP) Pulse Ox O2 Delivery O2 Flow Rate FiO2 10/10/24 08:45 97.4 42 17 109/84 (92) 99 97.4 10/09/24 22:45 Nasal Cannula* 3 32 Total Intake and Output 10/09/24 10/09/24 10/10/24 15:00 23:00 07:00 Intake Total 125 ml 0 ml Output Total 100 ml 225 ml Balance 25 ml -225 ml medications Current Medications Medications Dose Ordered Sig/Nikita Route Start Time Stop Time Status Last Admin Dose Admin Ondansetron HCl 4 mg Q4HP PRN IV 10/09/24 08:00 10/10/24 08:17 4 MG Enoxaparin Sodium 40 mg DAILY SC 10/09/24 10:00 10/09/24 10:57 40 MG Acetaminophen 650 mg Q6HP PRN PO 10/09/24 08:00 10/10/24 01:58 650 MG Nitroglycerin 0.4 mg Q5MINP PRN SL 10/09/24 08:00 Morphine Sulfate 2 mg Q30M PRN IV 10/09/24 08:00 UNV Lisinopril 20 mg DAILY PO 10/09/24 10:00 Pantoprazole Sodium 40 mg BID PO 10/09/24 10:00 10/09/24 21:55 40 MG Sacubitril/ Valsartan 1 tab BID PO 10/09/24 10:00 10/09/24 21:55 1 TAB Sucralfate 1 gm QID PO 10/09/24 12:00 10/10/24 05:09 1 GM Thiamine HCl 100 mg DAILY PO 10/09/24 10:00 10/09/24 10:57 100 MG Patient Own Medication 1 tab BID PO 10/09/24 10:00 UNV Patient Own Medication 1 mg DAILY PO 10/09/24 10:00 UNV Morphine Sulfate 2 mg Q30M PRN IV 10/09/24 08:30 Carvedilol 6.25 mg BID PO 10/09/24 10:00 10/09/24 10:58 6.25 MG Folic Acid 1 mg DAILY PO 10/09/24 10:00 10/09/24 10:57 1 MG Acetaminophen/ Hydrocodone Bitart 1 tab Q4HPRN PRN PO 10/09/24 12:00 10/10/24 08:18 1 TAB laboratory and microbiology Laboratory Tests 10/10/24 05:50 Test 10/10/24 05:50 Range/Units Serum Glucose 95 74-106 mg/dL Assessment/Plan Morbid obesity Fluid overload Atelectasis Pulmonary edema Acute hypoxemic respiratory failure Obstructive sleep apnea Patient is seen and examined Labs and imaging studies Reviewed Management plan Supplemental O2 Incentive Spirometry CPAP During sleep ranged from 5-20 cm Would benefit from a formal sleep study as an outpatient Bronchodilators Continue diuresis Monitor lytes Replace electrolytes DVT prophylaxis Plan discussed with: Other (rn) TETE TOBIAS MD October 10, 2024 10:13
--- NOTE | 2024-10-10 12:34 | DVHPN2 ---
Reviewed: Care Plan, H&P, Medications, Previous Orders, Radiology Changes from previous H/P or p: No Changes General: Per HPI Cardiovascular: Edema Respiratory: Shortness of breath Musculoskeletal: foot pain Objective Vitals Vital Signs Date Time Temp Pulse Resp B/P (MAP) Pulse Ox O2 Delivery O2 Flow Rate FiO2 10/10/24 10:20 97 109/84 10/10/24 08:45 97.4 17 99 97.4 10/10/24 08:00 Nasal Cannula* 2 28 Intake/Output Intake and Output 10/10/24 07:00 Intake Total 125 ml Output Total 325 ml Balance -200 ml Intake Oral 125 ml Output Urine Total 325 ml Medications Current Medications Medications Dose Ordered Sig/Nikita Route Start Time Stop Time Status Last Admin Dose Admin Ondansetron HCl 4 mg Q4HP PRN IV 10/09/24 08:00 10/10/24 08:17 4 MG Enoxaparin Sodium 40 mg DAILY SC 10/09/24 10:00 10/10/24 10:19 40 MG Acetaminophen 650 mg Q6HP PRN PO 10/09/24 08:00 10/10/24 01:58 650 MG Nitroglycerin 0.4 mg Q5MINP PRN SL 10/09/24 08:00 Morphine Sulfate 2 mg Q30M PRN IV 10/09/24 08:00 UNV Lisinopril 20 mg DAILY PO 10/09/24 10:00 Pantoprazole Sodium 40 mg BID PO 10/09/24 10:00 10/10/24 10:20 40 MG Sacubitril/ Valsartan 1 tab BID PO 10/09/24 10:00 10/10/24 10:20 1 TAB Sucralfate 1 gm QID PO 10/09/24 12:00 10/10/24 05:09 1 GM Thiamine HCl 100 mg DAILY PO 10/09/24 10:00 10/10/24 10:20 100 MG Patient Own Medication 1 tab BID PO 10/09/24 10:00 UNV Patient Own Medication 1 mg DAILY PO 10/09/24 10:00 UNV Morphine Sulfate 2 mg Q30M PRN IV 10/09/24 08:30 Carvedilol 6.25 mg BID PO 10/09/24 10:00 10/10/24 10:20 6.25 MG Folic Acid 1 mg DAILY PO 10/09/24 10:00 10/10/24 10:20 1 MG Acetaminophen/ Hydrocodone Bitart 1 tab Q4HPRN PRN PO 10/09/24 12:00 10/10/24 08:18 1 TAB Furosemide 40 mg BIDD IV 10/10/24 18:00 Laboratory Results Laboratory Tests 10/10/24 05:50 Chemistry Test 10/10/24 05:50 Albumin 4.0 g/dL (3.2-4.8) Calcium Level 9.5 mg/dL (8.7-10.4) Total Protein 7.0 g/dL (5.7-8.2) LFT Test 10/10/24 05:50 Alanine Aminotransferase (ALT) 18 U/L (7-40) Alkaline Phosphatase 100 U/L (46-116) Aspartate Amino Transferase (AST) 27 U/L (13-40) Total Bilirubin 2.2 mg/dL (0.2-1.0) H Urinalysis Test 10/09/24 13:07 Urine Color Light-yellow (Yellow) Urine Clarity Clear (Clear) Urine pH 5.5 (5.0-9.0) Urine Specific [place] 1.008 (1.001-1.035) Urine Protein Negative (Negative) Urine Ketones Negative (Negative) Urine Blood Negative /uL (Negative) Urine Nitrite Negative (Negative) Urine Bilirubin Negative (Negative) Urine Urobilinogen Normal mg/dL (Negative) Urine Leukocyte Esterase Negative /uL (Negative) Urine RBC None seen /hpf (0 - 3) Urine Microscopic WBC /HPF (0-3) Urine Squamous Epithelial Cells None seen /hpf (<5) Urine Bacteria None seen /hpf (None Seen) Urine Hyaline Casts Few /lpf (0 - 2) Urine Glucose Normal mg/dL (Normal) Assessment/Plan Assessment/Plan Acute on chronic CHF exacerbation Cardiomyopathy HFrEF, 15% Cardiomegaly JERRELL Morbid obesity Acute hypoxic respiratory failure History of hypertension History of peptic ulcer disease fluid overload/edema b/l scrotal swelling 10/10/2024 started on diuretics. goal is net negative 4-5 liters as tolerated replace serum K Plan discussed with: Patient, Spouse My Orders Orders - OJEDABRENDA DO Procedure Category Date Status Time *Dr. Jesús May CONS 10/09/24 Transmitted 12:47 *Consult CONS 5/30/25 Transmitted / 22:44 Date of Service: October 10, 2024 Billing Provider: BRENDA OJEDA DO Common Visit Codes: [id number] INP/OBS CARE(HIGH) BRENDA OJEDA DO October 10, 2024 12:34
[2024-10-10] MEDS: FUROSEMIDE 40 MG/4 ML VIAL IV ONE (13:25)
[2024-10-10] MEDS: FUROSEMIDE 40 MG/4 ML VIAL IV SCH (13:40)
[2024-10-10] MEDS ORDERED: FUROSEMIDE 40 MG/4 ML VIAL IV SCH (18:00)
--- NOTE | 2024-10-10 21:13 | DVHPN2 ---
Progress Note - Dictate Date Seen: October 10, 2024 Medical Necessity Reason Pt with a Central, PICC or Fol: No Subjective Patient was seen and evaluated in follow up. No acute events overnight. Denies any new complaints. Remains stable on 2L NC. Patient states he likes to sit on the side of the bed because it helps him breathe. Creatinine improved to 1.31. vital signs Vital Sign Date Time Temp Pulse Resp B/P (MAP) Pulse Ox O2 Delivery O2 Flow Rate FiO2 10/10/24 20:58 92.8 87 16 104/70 (81) 93 92.8 10/10/24 19:57 Nasal Cannula* 2 28 Total Intake and Output 10/09/24 10/09/24 10/10/24 15:00 23:00 07:00 Intake Total 125 ml 0 ml Output Total 100 ml 225 ml Balance 25 ml -225 ml medications Current Medications Medications Dose Ordered Sig/Nikita Route Start Time Stop Time Status Last Admin Dose Admin Ondansetron HCl 4 mg Q4HP PRN IV 10/09/24 08:00 10/10/24 18:26 4 MG Enoxaparin Sodium 40 mg DAILY SC 10/09/24 10:00 10/10/24 10:19 40 MG Acetaminophen 650 mg Q6HP PRN PO 10/09/24 08:00 10/10/24 01:58 650 MG Nitroglycerin 0.4 mg Q5MINP PRN SL 10/09/24 08:00 Morphine Sulfate 2 mg Q30M PRN IV 10/09/24 08:00 UNV Lisinopril 20 mg DAILY PO 10/09/24 10:00 Pantoprazole Sodium 40 mg BID PO 10/09/24 10:00 10/10/24 10:20 40 MG Sacubitril/ Valsartan 1 tab BID PO 10/09/24 10:00 10/10/24 10:20 1 TAB Sucralfate 1 gm QID PO 10/09/24 12:00 10/10/24 18:25 1 GM Thiamine HCl 100 mg DAILY PO 10/09/24 10:00 10/10/24 10:20 100 MG Patient Own Medication 1 tab BID PO 10/09/24 10:00 UNV Patient Own Medication 1 mg DAILY PO 10/09/24 10:00 UNV Morphine Sulfate 2 mg Q30M PRN IV 10/09/24 08:30 Carvedilol 6.25 mg BID PO 10/09/24 10:00 10/10/24 10:20 6.25 MG Folic Acid 1 mg DAILY PO 10/09/24 10:00 10/10/24 10:20 1 MG Acetaminophen/ Hydrocodone Bitart 1 tab Q4HPRN PRN PO 10/09/24 12:00 10/10/24 18:25 1 TAB Furosemide 80 mg TID IV 10/10/24 12:45 10/10/24 13:40 80 MG objective Vitals and nursing notes reviewed. General Appearance: Cooperative, mild distress HEENT: Atraumatic, PERRLA, EOMI, Mucous membr. moist/pink Respiratory: Normal air movement Cardiovascular: Regular rate, Normal S1, Normal S2 Abdominal: Normal bowel sounds, Soft Musculoskeletal: No extremity deformity. BLE edema Neuro: Alert, Oriented X3, Normal speech, Normal tone, Sensation intact Psych/Mental Status: Mental status NL, Mood NL laboratory and microbiology Laboratory Tests 10/10/24 05:50 Test 10/10/24 05:50 Range/Units Serum Glucose 95 74-106 mg/dL Problem List Acute on chronic CHF exacerbation Cardiomegaly JERRELL Morbid obesity Acute hypoxic respiratory failure History of hypertension History of peptic ulcer disease Assessment/Plan Agree with current supportive medical care. Pulmonary Medicine consulted. F/u AM labs. Electrolyte replacement prn. Diuretics with Lasix increased to 80 mg IV TID. Strict Intake/Output. Avoid nephrotoxic medications. Home medications resumed. Pain management prn. GI/DVT prophylaxis. Additional plan as per the hospital course. Plan discussed with: Patient, Other (RN) HARJINDER CROFT DO October 10, 2024 21:13
[2024-10-11] VITALS (8 sets, daily range): BP systolic 93–111; BP diastolic 61–80; PULSE 81–102; RESP 15–18; TEMP 97.4–98.7; O2SAT 96–100
[2024-10-11 06:22] LABS: Anion Gap 7 (5-15); Calcium 9.7 mg/dL (8.7-10.4); Carbon Dioxide 30 mmol/L (20-31); Chloride 101 mmol/L (98-107); Potassium 3.7 mmol/L (3.5-5.1); Sodium 138 mmol/L (136-145)
[2024-10-11 06:27] LABS: Glucose 93 mg/dL (74-106)
[2024-10-11 06:28] LABS: BUN/Creatinine Ratio 15.6 (10.0-20.0); Blood Urea Nitrogen 23 mg/dL (9-23); Magnesium 1.6 mg/dL (1.6-2.6)
[2024-10-11 06:30] LABS: Phosphorus 4.2 mg/dL (2.4-5.1)
--- NOTE | 2024-10-11 12:00 | DVHPN2 ---
Reviewed: Care Plan, H&P, Medications, Previous Orders, Radiology Changes from previous H/P or p: No Changes General: Per HPI Cardiovascular: Edema Respiratory: Shortness of breath Musculoskeletal: foot pain Objective Vitals Vital Signs Date Time Temp Pulse Resp B/P (MAP) Pulse Ox O2 Delivery O2 Flow Rate FiO2 10/11/24 10:00 96 108/77 10/11/24 09:06 97.4 18 99 97.4 10/11/24 08:00 Nasal Cannula* 2 28 Intake/Output Intake and Output 10/11/24 07:00 Intake Total 1200 ml Output Total 2000 ml Balance -800 ml Intake Oral 1200 ml Output Urine Total 2000 ml # Voids 3 Medications Current Medications Medications Dose Ordered Sig/Nikita Route Start Time Stop Time Status Last Admin Dose Admin Ondansetron HCl 4 mg Q4HP PRN IV 10/09/24 08:00 10/11/24 10:26 4 MG Enoxaparin Sodium 40 mg DAILY SC 10/09/24 10:00 10/11/24 10:27 40 MG Acetaminophen 650 mg Q6HP PRN PO 10/09/24 08:00 10/10/24 01:58 650 MG Nitroglycerin 0.4 mg Q5MINP PRN SL 10/09/24 08:00 Morphine Sulfate 2 mg Q30M PRN IV 10/09/24 08:00 UNV Lisinopril 20 mg DAILY PO 10/09/24 10:00 Pantoprazole Sodium 40 mg BID PO 10/09/24 10:00 10/11/24 10:27 40 MG Sacubitril/ Valsartan 1 tab BID PO 10/09/24 10:00 10/11/24 10:27 1 TAB Sucralfate 1 gm QID PO 10/09/24 12:00 10/11/24 06:09 1 GM Thiamine HCl 100 mg DAILY PO 10/09/24 10:00 10/11/24 10:27 100 MG Patient Own Medication 1 tab BID PO 10/09/24 10:00 UNV Patient Own Medication 1 mg DAILY PO 10/09/24 10:00 UNV Morphine Sulfate 2 mg Q30M PRN IV 10/09/24 08:30 Carvedilol 6.25 mg BID PO 10/09/24 10:00 10/10/24 21:34 6.25 MG Folic Acid 1 mg DAILY PO 10/09/24 10:00 10/11/24 10:27 1 MG Acetaminophen/ Hydrocodone Bitart 1 tab Q4HPRN PRN PO 10/09/24 12:00 10/11/24 10:27 1 TAB Furosemide 80 mg TID IV 10/10/24 12:45 10/11/24 08:33 80 MG Laboratory Results Laboratory Tests 10/10/24 05:50 10/11/24 05:16 Chemistry Test 10/11/24 05:16 Calcium Level 9.7 mg/dL (8.7-10.4) Magnesium Level 1.6 mg/dL (1.6-2.6) Phosphorus Level 4.2 mg/dL (2.4-5.1) Urinalysis Test 10/09/24 13:07 Urine Color Light-yellow (Yellow) Urine Clarity Clear (Clear) Urine pH 5.5 (5.0-9.0) Urine Specific [place] 1.008 (1.001-1.035) Urine Protein Negative (Negative) Urine Ketones Negative (Negative) Urine Blood Negative /uL (Negative) Urine Nitrite Negative (Negative) Urine Bilirubin Negative (Negative) Urine Urobilinogen Normal mg/dL (Negative) Urine Leukocyte Esterase Negative /uL (Negative) Urine RBC None seen /hpf (0 - 3) Urine Microscopic WBC /HPF (0-3) Urine Squamous Epithelial Cells None seen /hpf (<5) Urine Bacteria None seen /hpf (None Seen) Urine Hyaline Casts Few /lpf (0 - 2) Urine Glucose Normal mg/dL (Normal) Microbiology Microbiology Date/Time Source Procedure Growth Status 10/10/24 02:00 Nose MRSA Screen - Final Complete Assessment/Plan Assessment/Plan Acute on chronic CHF exacerbation Cardiomyopathy HFrEF, 15% Cardiomegaly JERRELL Morbid obesity Acute hypoxic respiratory failure History of hypertension History of peptic ulcer disease fluid overload/edema b/l scrotal swelling 10/10/2024 started on diuretics. goal is net negative 4-5 liters as tolerated replace serum K 10/11/2024 pt produced about 4 liters within the past 24 hours need to be net negative 4-5 liters will likely need 3-4 days Plan discussed with: Patient, Spouse My Orders Orders - BRENDA OJEDA DO Procedure Category Date Status Time Furosemide Injection PHA 10/10/24 In Process (Lasix Injection) 12:45 Date of Service: Oct 11, 2024 Billing Provider: BRENDA OJEDA DO Common Visit Codes: [id number] INP/OBS CARE(HIGH) BRENDA OJEDA DO Oct 11, 2024 12:00
--- NOTE | 2024-10-11 14:40 | DVHPN2 ---
Progress Note - Dictate Date Seen: Oct 11, 2024 Medical Necessity Reason Pt with a Central, PICC or Fol: No vital signs Vital Sign Date Time Temp Pulse Resp B/P (MAP) Pulse Ox O2 Delivery O2 Flow Rate FiO2 10/11/24 14:28 107/80 10/11/24 13:30 97.8 101 18 100 97.8 10/11/24 08:00 Nasal Cannula* 2 28 Total Intake and Output 10/10/24 10/10/24 10/11/24 15:00 23:00 07:00 Intake Total 700 ml 500 ml Output Total 700 ml 1300 ml Balance 0 ml -800 ml medications Current Medications Medications Dose Ordered Sig/Nikita Route Start Time Stop Time Status Last Admin Dose Admin Ondansetron HCl 4 mg Q4HP PRN IV 10/09/24 08:00 10/11/24 10:26 4 MG Enoxaparin Sodium 40 mg DAILY SC 10/09/24 10:00 10/11/24 10:27 40 MG Acetaminophen 650 mg Q6HP PRN PO 10/09/24 08:00 10/10/24 01:58 650 MG Nitroglycerin 0.4 mg Q5MINP PRN SL 10/09/24 08:00 Morphine Sulfate 2 mg Q30M PRN IV 10/09/24 08:00 UNV Lisinopril 20 mg DAILY PO 10/09/24 10:00 Pantoprazole Sodium 40 mg BID PO 10/09/24 10:00 10/11/24 10:27 40 MG Sucralfate 1 gm QID PO 10/09/24 12:00 10/11/24 12:43 1 GM Thiamine HCl 100 mg DAILY PO 10/09/24 10:00 10/11/24 10:27 100 MG Patient Own Medication 1 tab BID PO 10/09/24 10:00 UNV Patient Own Medication 1 mg DAILY PO 10/09/24 10:00 UNV Morphine Sulfate 2 mg Q30M PRN IV 10/09/24 08:30 Folic Acid 1 mg DAILY PO 10/09/24 10:00 10/11/24 10:27 1 MG Acetaminophen/ Hydrocodone Bitart 1 tab Q4HPRN PRN PO 10/09/24 12:00 10/11/24 10:27 1 TAB Furosemide 80 mg TID IV 10/10/24 12:45 10/11/24 14:28 80 MG Midodrine 5 mg TID@0600,1200,1800 PO 10/11/24 18:00 Metolazone 5 mg DAILY PO 10/12/24 10:00 laboratory and microbiology Laboratory Tests 10/11/24 05:16 10/10/24 05:50 Test 10/11/24 05:16 Range/Units Serum Glucose 93 74-106 mg/dL Assessment/Plan Morbid obesity Fluid overload Atelectasis Pulmonary edema Acute hypoxemic respiratory failure Obstructive sleep apnea Patient is seen and examined Labs and imaging studies Reviewed Management plan Supplemental O2 Incentive Spirometry CPAP During sleep ranged from 5-20 cm Would benefit from a formal sleep study as an outpatient Bronchodilators Continue diuresis Monitor lytes Replace electrolytes DVT prophylaxis Plan discussed with: Patient, Other TETE TOBIAS MD Oct 11, 2024 14:40
[2024-10-11] MEDS: MIDODRINE HCL 10 MG TAB PO SCH (17:47)
--- NOTE | 2024-10-11 18:05 | DVHPN2 ---
Progress Note - Dictate Date Seen: Oct 11, 2024 Has the PT tested + for MRSA If YES, has PT been informed?: No Medical Necessity Reason Pt with a Central, PICC or Fol: No Subjective Patient was seen and evaluated in follow up. No acute events overnight. Patient endorses shortness of breath with exertion. Stable on 2L NC. Produced approximately 4L within the past 24 hours. Creatinine increased to 1.47. vital signs Vital Sign Date Time Temp Pulse Resp B/P (MAP) Pulse Ox O2 Delivery O2 Flow Rate FiO2 10/11/24 17:00 98.3 98 18 110/80 (90) 98 98.3 10/11/24 08:00 Nasal Cannula* 2 28 Total Intake and Output 10/10/24 10/10/24 10/11/24 14:59 22:59 06:59 Intake Total 700 ml 500 ml Output Total 700 ml 1300 ml Balance 0 ml -800 ml medications Current Medications Medications Dose Ordered Sig/Nikita Route Start Time Stop Time Status Last Admin Dose Admin Ondansetron HCl 4 mg Q4HP PRN IV 10/09/24 08:00 10/11/24 10:26 4 MG Enoxaparin Sodium 40 mg DAILY SC 10/09/24 10:00 10/11/24 10:27 40 MG Acetaminophen 650 mg Q6HP PRN PO 10/09/24 08:00 10/10/24 01:58 650 MG Nitroglycerin 0.4 mg Q5MINP PRN SL 10/09/24 08:00 Morphine Sulfate 2 mg Q30M PRN IV 10/09/24 08:00 UNV Lisinopril 20 mg DAILY PO 10/09/24 10:00 Pantoprazole Sodium 40 mg BID PO 10/09/24 10:00 10/11/24 10:27 40 MG Sucralfate 1 gm QID PO 10/09/24 12:00 10/11/24 17:47 1 GM Thiamine HCl 100 mg DAILY PO 10/09/24 10:00 10/11/24 10:27 100 MG Patient Own Medication 1 tab BID PO 10/09/24 10:00 UNV Patient Own Medication 1 mg DAILY PO 10/09/24 10:00 UNV Morphine Sulfate 2 mg Q30M PRN IV 10/09/24 08:30 Folic Acid 1 mg DAILY PO 10/09/24 10:00 10/11/24 10:27 1 MG Acetaminophen/ Hydrocodone Bitart 1 tab Q4HPRN PRN PO 10/09/24 12:00 10/11/24 10:27 1 TAB Furosemide 80 mg TID IV 10/10/24 12:45 10/11/24 14:28 80 MG Midodrine 5 mg TID@0600,1200,1800 PO 10/11/24 18:00 10/11/24 17:47 5 MG Metolazone 5 mg DAILY PO 10/12/24 10:00 objective Vitals and nursing notes reviewed. General Appearance: Cooperative, mild distress HEENT: Atraumatic, PERRLA, EOMI, Mucous membr. moist/pink Respiratory: Normal air movement Cardiovascular: Regular rate, Normal S1, Normal S2 Abdominal: Normal bowel sounds, Soft Musculoskeletal: No extremity deformity. BLE edema Neuro: Alert, Oriented X3, Normal speech, Normal tone, Sensation intact Psych/Mental Status: Mental status NL, Mood NL laboratory and microbiology Laboratory Tests 10/11/24 05:16 10/10/24 05:50 Test 10/11/24 05:16 Range/Units Serum Glucose 93 74-106 mg/dL Problem List Acute on chronic CHF exacerbation Cardiomegaly JERRELL Morbid obesity Acute hypoxic respiratory failure History of hypertension History of peptic ulcer disease Assessment/Plan Agree with current supportive medical care. Pulmonary Medicine consulted. Electrolyte replacement prn. Continue diuretics with Lasix 80 mg IV TID. Strict Intake/Output. Goal : net negative 4-5 liters. Avoid nephrotoxic medications. Home medications resumed. Pain management prn. GI/DVT prophylaxis. Additional plan as per the hospital course. Plan discussed with: Patient, Other HARJINDER CROFT DO Oct 11, 2024 18:05
[2024-10-12] VITALS (7 sets, daily range): BP systolic 105–121; BP diastolic 74–85; PULSE 79–98; RESP 17–19; TEMP 97.6–98.2; O2SAT 93–100
[2024-10-12 07:30] LABS: Anion Gap 9 (5-15); Carbon Dioxide 25 mmol/L (20-31); Chloride 101 mmol/L (98-107); Potassium 3.9 mmol/L (3.5-5.1)
[2024-10-12 07:31] LABS: Calcium 9.5 mg/dL (8.7-10.4)
[2024-10-12 07:34] LABS: Sodium 135 mmol/L (136-145)
[2024-10-12 07:36] LABS: BUN/Creatinine Ratio 12.5 (10.0-20.0); Blood Urea Nitrogen 18 mg/dL (9-23); Glucose 98 mg/dL (74-106); Magnesium 1.7 mg/dL (1.6-2.6)
[2024-10-12 07:38] LABS: Phosphorus 4.2 mg/dL (2.4-5.1)
[2024-10-12] MEDS: metOLazone 5 MG TAB PO SCH (09:48)
--- NOTE | 2024-10-12 19:17 | DVHPN2 ---
Subjective Doing better Still with leg edema Reviewed: Care Plan, H&P, Medications, Previous Orders, Radiology Changes from previous H/P or p: Changes General: Per HPI Cardiovascular: Edema Respiratory: Shortness of breath Musculoskeletal: foot pain Objective Vitals Vital Signs Date Time Temp Pulse Resp B/P (MAP) Pulse Ox O2 Delivery O2 Flow Rate FiO2 10/12/24 14:40 120/85 10/12/24 13:00 97.6 98 18 96 97.6 10/12/24 08:00 Room Air* 0 21 Intake/Output Intake and Output 10/12/24 06:59 Intake Total 1290 ml Output Total 3650 ml Balance -2360 ml Intake Oral 1290 ml Output Urine Total 3650 ml # Bowel Movements 1 General Appearance: Alert, Oriented X3, Cooperative, No acute distress Lungs: Clear to auscultation, Normal air movement Cardiovascular: Regular rate, Normal S1, Normal S2 Abdomen: Normal bowel sounds, Soft, No tenderness Extremities: Other (2+ edema B legs) Medications Current Medications Medications Dose Ordered Sig/Nikita Route Start Time Stop Time Status Last Admin Dose Admin Ondansetron HCl 4 mg Q4HP PRN IV 10/09/24 08:00 10/12/24 03:14 4 MG Enoxaparin Sodium 40 mg DAILY SC 10/09/24 10:00 10/12/24 09:48 40 MG Acetaminophen 650 mg Q6HP PRN PO 10/09/24 08:00 10/10/24 01:58 650 MG Nitroglycerin 0.4 mg Q5MINP PRN SL 10/09/24 08:00 Morphine Sulfate 2 mg Q30M PRN IV 10/09/24 08:00 UNV Lisinopril 20 mg DAILY PO 10/09/24 10:00 Pantoprazole Sodium 40 mg BID PO 10/09/24 10:00 10/12/24 09:48 40 MG Sucralfate 1 gm QID PO 10/09/24 12:00 10/12/24 17:49 1 GM Thiamine HCl 100 mg DAILY PO 10/09/24 10:00 10/12/24 09:48 100 MG Patient Own Medication 1 tab BID PO 10/09/24 10:00 UNV Patient Own Medication 1 mg DAILY PO 10/09/24 10:00 UNV Morphine Sulfate 2 mg Q30M PRN IV 10/09/24 08:30 Folic Acid 1 mg DAILY PO 10/09/24 10:00 10/12/24 09:48 1 MG Acetaminophen/ Hydrocodone Bitart 1 tab Q4HPRN PRN PO 10/09/24 12:00 10/12/24 17:55 1 TAB Furosemide 80 mg TID IV 10/10/24 12:45 10/12/24 14:40 80 MG Midodrine 5 mg TID@0600,1200,1800 PO 10/11/24 18:00 10/12/24 17:49 5 MG Metolazone 5 mg DAILY PO 10/12/24 10:00 10/12/24 09:48 5 MG Laboratory Results Laboratory Tests 10/10/24 05:50 10/12/24 06:17 Chemistry Test 10/12/24 06:17 Calcium Level 9.5 mg/dL (8.7-10.4) Magnesium Level 1.7 mg/dL (1.6-2.6) Phosphorus Level 4.2 mg/dL (2.4-5.1) Urinalysis Test 10/09/24 13:07 Urine Color Light-yellow (Yellow) Urine Clarity Clear (Clear) Urine pH 5.5 (5.0-9.0) Urine Specific [place] 1.008 (1.001-1.035) Urine Protein Negative (Negative) Urine Ketones Negative (Negative) Urine Blood Negative /uL (Negative) Urine Nitrite Negative (Negative) Urine Bilirubin Negative (Negative) Urine Urobilinogen Normal mg/dL (Negative) Urine Leukocyte Esterase Negative /uL (Negative) Urine RBC None seen /hpf (0 - 3) Urine Microscopic WBC /HPF (0-3) Urine Squamous Epithelial Cells None seen /hpf (<5) Urine Bacteria None seen /hpf (None Seen) Urine Hyaline Casts Few /lpf (0 - 2) Urine Glucose Normal mg/dL (Normal) Microbiology Microbiology Date/Time Source Procedure Growth Status 10/10/24 02:00 Nose MRSA Screen - Final Complete Assessment/Plan Assessment/Plan Acute on chronic CHF exacerbation with low EF Cardiomyopathy HFrEF, 15% Cardiomegaly JERRELL due to VMN Morbid obesity Acute hypoxic respiratory failure HTN History of peptic ulcer disease fluid overload/edema scrotal edema PLAN: Continue Lasix IV and metolazone DC Lisinopril due to hypotension and JERRELL Continue Midodrine Nephrology on consult Thiamine and folic acid Monitor closely Full code Advanced directives discussed x 16 minutes Plan discussed with: Patient My Orders Orders - JARED PORRAS MD Procedure Category Date Status Time September Shower [facility] 10/12/24 In Process 15:09 Date of Service: Oct 12, 2024 Billing Provider: JARED PORRAS MD Common Visit Codes: [id number] INP/OBS CARE(HIGH) Secondary Visit Codes: [id number] CARE PLAN 30 MINUTES JARED PORRAS MD Oct 12, 2024 19:17
--- NOTE | 2024-10-12 20:12 | DVHPN2 ---
Progress Note - Dictate Date Seen: Oct 12, 2024 Has the PT tested + for MRSA If YES, has PT been informed?: No Medical Necessity Reason Pt with a Central, PICC or Fol: No Subjective Patient was seen and evaluated in follow up. No acute events overnight. Patient reports feeling better. Still with +2 leg edema. Creatinine remains elevated at 1.44. BUN of 18. Na 135. Mg, Phos and K are wnl. vital signs Vital Sign Date Time Temp Pulse Resp B/P (MAP) Pulse Ox O2 Delivery O2 Flow Rate FiO2 10/12/24 14:40 120/85 10/12/24 13:00 97.6 98 18 96 97.6 10/12/24 08:00 Room Air* 0 21 Total Intake and Output 10/11/24 10/11/24 10/12/24 15:00 23:00 07:00 Intake Total 840 ml 450 ml Output Total 1300 ml 2350 ml Balance -460 ml -1900 ml medications Current Medications Medications Dose Ordered Sig/Nikita Route Start Time Stop Time Status Last Admin Dose Admin Ondansetron HCl 4 mg Q4HP PRN IV 10/09/24 08:00 10/12/24 03:14 4 MG Enoxaparin Sodium 40 mg DAILY SC 10/09/24 10:00 10/12/24 09:48 40 MG Acetaminophen 650 mg Q6HP PRN PO 10/09/24 08:00 10/10/24 01:58 650 MG Nitroglycerin 0.4 mg Q5MINP PRN SL 10/09/24 08:00 Morphine Sulfate 2 mg Q30M PRN IV 10/09/24 08:00 UNV Pantoprazole Sodium 40 mg BID PO 10/09/24 10:00 10/12/24 09:48 40 MG Sucralfate 1 gm QID PO 10/09/24 12:00 10/12/24 17:49 1 GM Thiamine HCl 100 mg DAILY PO 10/09/24 10:00 10/12/24 09:48 100 MG Patient Own Medication 1 tab BID PO 10/09/24 10:00 UNV Patient Own Medication 1 mg DAILY PO 10/09/24 10:00 UNV Morphine Sulfate 2 mg Q30M PRN IV 10/09/24 08:30 Folic Acid 1 mg DAILY PO 10/09/24 10:00 10/12/24 09:48 1 MG Acetaminophen/ Hydrocodone Bitart 1 tab Q4HPRN PRN PO 10/09/24 12:00 10/12/24 17:55 1 TAB Furosemide 80 mg TID IV 10/10/24 12:45 10/12/24 14:40 80 MG Midodrine 5 mg TID@0600,1200,1800 PO 10/11/24 18:00 10/12/24 17:49 5 MG Metolazone 5 mg DAILY PO 10/12/24 10:00 10/12/24 09:48 5 MG objective Vitals and nursing notes reviewed. General Appearance: Cooperative, mild distress HEENT: Atraumatic, PERRLA, EOMI, Mucous membr. moist/pink Respiratory: Normal air movement Cardiovascular: Regular rate, Normal S1, Normal S2 Abdominal: Normal bowel sounds, Soft Musculoskeletal: No extremity deformity. BLE edema Neuro: Alert, Oriented X3, Normal speech, Normal tone, Sensation intact Psych/Mental Status: Mental status NL, Mood NL laboratory and microbiology Laboratory Tests 10/12/24 06:17 10/10/24 05:50 Test 10/12/24 06:17 Range/Units Serum Glucose 98 74-106 mg/dL Problem List Acute on chronic CHF exacerbation Cardiomegaly JERRELL Morbid obesity Acute hypoxic respiratory failure History of hypertension History of peptic ulcer disease Assessment/Plan Agree with current supportive medical care. Pulmonary Medicine consulted. Electrolyte replacement prn. Continue diuretics with Lasix 80 mg IV TID. Strict Intake/Output. Avoid nephrotoxic medications. Thiamine and folic acid. Lisinopril discontinued. Started on Midodrine 5 mg PO TID. Metolazone 5 mg daily. Pain management prn. GI/DVT prophylaxis. Additional plan as per the hospital course. Dietary Evaluation Review Recommendations by RD: Decrease Calorie Intake Comments: 1) Continue current plan of care 2) Refer CDE for weight management on DC Expected Outcomes/Goals: To maintain weight Fu 3-5 days Plan discussed with: Patient, Other (RN) HARJINDER CROFT DO Oct 12, 2024 20:12
--- NOTE | 2024-10-12 21:40 | DVHINCON2 ---
Date of service: Oct 12, 2024 Referring Physician Diann Singletary MD [facility] Reason for Consultation Acute hypoxic respiratory failure, pulmonary hypertension History of Present Illness A 39-year-old man with past medical history of hypertension, CHF, and peptic ulcer disease who presented to the ED on 10/09/24 with c/o shortness of breath and bilateral lower extremity swelling x3 weeks. Patient reported shortness of breath ongoing for a year, on and off. He was taking Lasix 3 times a week, now changed to daily. Reports he was working until about 3 weeks ago. He also complained of pain in his lower extremities, feeling like the skin is being stretched out; reported pain of 9/10 and constant. Patient denied any recent trauma or injury, sick contact, fever/chills, GI symptoms or other acute complaints. Patient was admitted for further care, and pulmonary consultation is requested for evaluation and management of acute hypoxic respiratory failure and pulmonary hypertension. Review of Systems: 14-point review of systems negative unless otherwise noted above. Past Medical History: Hypertension, CHF, and peptic ulcer disease Past Surgical History: None Medications: Reviewed. Allergies: No known drug allergies. Family History: Other (Mom with heart failure and . Grandfather with CABG. Uncle with CHF and .) Social History: Nonsmoker. No alcohol or illicit drug use. Family History: Patient reports no known family medical history. Allergies: Coded Allergies: NO KNOWN ALLERGIES (Unverified , 06/19/22) Home Meds Active Scripts Metolazone (Metolazone) 2.5 Mg Tab, 2.5 MG PO DAILY for 30 Days, #30 TAB Prov:DIANN SINGLETARY MD 10/18/24 Cyclobenzaprine HCl (Cyclobenzaprine Hydrochlo) 5 Mg Tab, 5 MG PO QHSP PRN for 5 Days, #5 TAB Prov:BRENDA OJEDA DO 10/06/22 Lisinopril (Lisinopril) 20 Mg Tab, 1 TAB PO DAILY, #90 TAB 3 Refills Prov:JURGEN MI MD 06/24/22 Carvedilol (Coreg) 6.25 Mg Tab, 1 TAB PO BID, #180 TAB 3 Refills Prov:JURGEN MI MD 06/24/22 Sucralfate (Sucralfate) 1 Gm Tab, 1 GM PO QID, #120 TAB Prov:JURGEN MI MD 06/24/22 Pantoprazole Sodium Sesquihydr (Pantoprazole Sodium) 40 Mg Tab, 40 MG PO BID, #60 TAB Prov:JURGEN MI MD 06/24/22 Folic Acid (Folic Acid) 1 Mg Tab, 1 MG PO DAILY, #30 TAB Prov:JURGEN MI MD 06/24/22 Thiamine Hcl (Thiamine Hcl) 100 Mg Tab, 1 TAB PO DAILY, #30 TAB Prov:JURGEN MI MD 06/24/22 Reported Medications Bumetanide (Bumetanide) 1 Mg Tab, 1 TAB PO TID 10/09/24 Sacubitril-Valsartan (Entresto 24-26 mg) 1 Tab Tab, 1 TAB PO BID, TAB 10/06/22 Potassium Chloride (POTASSIUM CHLORIDE CR) 10 Meq Tb, 1 TAB PO DAILY, #30 TAB 5 Refills 10/06/22 Current Medications Current Medications Medications (Trade) Dose Ordered Sig/Nikita Route PRN Reason Start Time Stop Time Status Last Admin Metolazone (Zaroxolyn) 5 mg DAILY PO 10/12/24 10:00 10/12/24 09:48 Vital Signs Vital Signs Date Time Temp Pulse Resp B/P (MAP) Pulse Ox O2 Delivery O2 Flow Rate FiO2 10/12/24 21:00 98.2 96 19 121/74 (90) 95 98.2 10/12/24 08:00 Room Air* 0 21 Physical Exam Gen.: Patient lying in bed in no apparent distress. On supplemental oxygen. Head: Normocephalic, atraumatic. Eyes: EOMI/PERRLA. Ears: Normal hearing. Normal anatomy. Neck/trachea: Trachea midline, supple. Nose: Normal external anatomy. Mouth: Moist mucous membranes. Chest: Decreased air entry bilaterally. No wheezing or rhonchi. Cardiovascular: Positive S1, positive S2. Regular rate and rhythm. Abdomen: Positive bowel sounds in all 4 quadrants. Soft, non-tender, non- distended. : Deferred. Rectal: Deferred. Skin: Warm, dry. Intact. Extremities: 2+ radial pulses bilaterally. No lower extremity edema. Neuro: Awake, alert, oriented x3. No gross motor or sensory deficits. Cranial nerves II through XII intact. Gait not assessed. Labs/Diagnostic Data Labs Test 6/2/25 06:17 10/10/24 05:50 10/09/24 13:07 10/09/24 08:52 Range/Units Sodium Level 135 L 136-145 mmol/L Potassium Level 3.9 3.5-5.1 mmol/L Chloride Level 101 98-107 mmol/L Carbon Dioxide Level 25 20-31 mmol/L Anion Gap 9 5-15 Blood Urea Nitrogen 18 9-23 mg/dL Creatinine 1.44 H 0.700-1.30 mg/dL Glomerular Filtration Rate Calc 64 >90 mL/min BUN/Creatinine Ratio 12.5 10.0-20.0 Serum Glucose 98 74-106 mg/dL Calcium Level 9.5 8.7-10.4 mg/dL Phosphorus Level 4.2 2.4-5.1 mg/dL Magnesium Level 1.7 1.6-2.6 mg/dL White Blood Count 6.8 4.4-10.8 10^3/uL Red Blood Count 3.84 L 4.5-5.90 10^6/uL Hemoglobin 12.0 L 13.5-17.5 g/dL Hematocrit 36.2 L 41.0-53.0 % Mean Corpuscular Volume 94.4 80.0-100.0 fL Mean Corpuscular Hemoglobin 31.4 28.0-32.0 pg Mean Corpuscular Hemoglobin Concent 33.2 32.0-36.0 g/dL Red Cell Distribution Width 19.3 H 11.8-14.3 % Platelet Count 172 140-450 10^3/uL Mean Platelet Volume 9.3 6.9-10.8 fL Neutrophils (%) (Auto) 68.4 37.0-80.0 % Lymphocytes (%) (Auto) 22.3 10.0-50.0 % Monocytes (%) (Auto) 7.8 0.0-12.0 % Eosinophils (%) (Auto) 0.6 0.0-7.0 % Basophils (%) (Auto) 0.9 0.0-2.0 % Neutrophils # (Auto) 4.6 1.6-8.6 10 ^3/uL Lymphocytes # (Auto) 1.5 0.4-5.4 10 ^3/uL Monocytes # (Auto) 0.5 0-1.3 10 ^3/uL Eosinophils # (Auto) 0 0-0.8 10 ^3/uL Basophils # (Auto) 0.1 0-0.2 10 ^3/uL Nucleated Red Blood Cells 0.3 % Total Bilirubin 2.2 H 0.2-1.0 mg/dL Aspartate Amino Transferase (AST) 27 13-40 U/L Alanine Aminotransferase (ALT) 18 7-40 U/L Alkaline Phosphatase 100 46-116 U/L Total Protein 7.0 5.7-8.2 g/dL Albumin 4.0 3.2-4.8 g/dL Urine Color Light-yellow Yellow Urine Clarity Clear Clear Urine pH 5.5 5.0-9.0 Urine Specific [place] 1.008 1.001-1.035 Urine Protein Negative Negative Urine Ketones Negative Negative Urine Blood Negative Negative /uL Urine Nitrite Negative Negative Urine Bilirubin Negative Negative Urine Urobilinogen Normal Negative mg/dL Urine Leukocyte Esterase Negative Negative /uL Urine RBC None seen 0 - 3 /hpf Urine Microscopic WBC 0-3 /HPF Urine Squamous Epithelial Cells None seen <5 /hpf Urine Bacteria None seen None Seen /hpf Urine Hyaline Casts Few 0 - 2 /lpf Urine Glucose Normal Normal mg/dL Urine Opiates Screen Neg NEGATIVE Urine Fentanyl Screen Neg NEGATIVE Urine Barbiturates Screen Neg NEGATIVE Urine Phencyclidine Screen Neg NEGATIVE Urine Amphetamines Screen Neg NEGATIVE Urine Benzodiazepines Screen Neg NEGATIVE Urine Cocaine Screen Neg NEGATIVE Urine Cannabinoids Screen Neg NEGATIVE Troponin I High Sensitivity 11 </=54 ng/L Test 10/09/24 06:05 Range/Units B-Type Natriuretic Peptide 995.72 0-100 pg/mL Microbiology Date/Time Source Procedure Growth Status 10/10/24 02:00 Nose MRSA Screen - Final Complete Assessment Impression: Acute hypoxic respiratory failure Dependence on supplemental oxygen Acute on chronic CHF exacerbation, systolic EF 15% Pulmonary hypertension, 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 CXR shows findings c/w cardiomegaly Echo reviewed; shows RVSP of 40 mmHg, EF 15%. Moderate to severe mitral regurgitation Cardiology recs appreciated. Continue diuresis with Lasix TID + metolazone Monitor renal function - creatinine of 1.4 Monitor electrolytes. Supplement as necessary. Monitor ins and outs. On Protonix BID for hx of peptic ulcer disease Sucralfate Monitor hemoglobin- currently stable. Recommend outpatient sleep study d/t snoring; STOP-BANG score of >5. Diet and lifestyle modifications for weight reduction Morbid obesity - complicates all care GI prophylaxis - Protonix BID DVT prophylaxis - Lovenox Prognosis: Poor given patient's multiple co-morbidities. Rest of plan per hospitalist and other consultants. Thank you Dr. Singletary, for allowing me to participate in this patient's care. Further recommendations will depend on the patient's clinical course. Please do not hesitate to contact me if you have any questions or concerns. This medical document was created using an electronic medical record system with [employer] computerized dictation system. Although these documentations are being carefully reviewed, there may still be some phonetic and typographical changes. The errors are purely typographical, due to imperfection on the software pr tylor, and do not reflect any compromise in the patient's medical care. Plan discussed with: Patient, Other (RIGO Tee/Dr. Singletary) RAJAN OCONNELL MD Oct 12, 2024 21:40
[2024-10-13] VITALS (8 sets, daily range): BP systolic 104–123; BP diastolic 61–90; PULSE 85–105; RESP 19–20; TEMP 97–99.3; O2SAT 92–95
[2024-10-13 07:11] LABS: Anion Gap 10 (5-15); Sodium 136 mmol/L (136-145)
[2024-10-13 07:12] LABS: Calcium 9.3 mg/dL (8.7-10.4)
[2024-10-13 07:18] LABS: Blood Urea Nitrogen 23 mg/dL (9-23); Glucose 92 mg/dL (74-106)
[2024-10-13 07:19] LABS: Phosphorus 4.4 mg/dL (2.4-5.1)
[2024-10-13 07:21] LABS: Carbon Dioxide 33 mmol/L (20-31); Chloride 93 mmol/L (98-107); Magnesium 1.4 mg/dL (1.6-2.6); Potassium 2.9 mmol/L (3.5-5.1)
[2024-10-13] MEDS: POTASSIUM CHL 20 Meq TABLET PO ONE (09:51)
[2024-10-13] MEDS: MAGNESIUM SULFATE 1GM/100ML 100 ML IV SCH (09:52)
--- NOTE | 2024-10-13 10:57 | DVHPN2 ---
Subjective Better Less edema Electrolytes show potassium 2.9 and magnesium 1.4 Reviewed: Care Plan, H&P, Medications, Previous Orders, Radiology Changes from previous H/P or p: Changes General: Per HPI Cardiovascular: Edema Respiratory: Shortness of breath Musculoskeletal: foot pain Objective Vitals Vital Signs Date Time Temp Pulse Resp B/P (MAP) Pulse Ox O2 Delivery O2 Flow Rate FiO2 10/13/24 09:51 107/80 10/13/24 09:00 98.3 85 20 92 98.3 10/12/24 20:00 Room Air* 0 21 Intake/Output Intake and Output 10/13/24 07:00 Intake Total 1250 ml Output Total 3600 ml Balance -2350 ml Intake Oral 1250 ml Output Urine Total 3600 ml # Voids 2 # Bowel Movements 2 General Appearance: Alert, Oriented X3, Cooperative, No acute distress Lungs: Clear to auscultation, Normal air movement Cardiovascular: Regular rate, Normal S1, Normal S2 Abdomen: Normal bowel sounds, Soft, No tenderness Extremities: Other (2+ edema B legs) Medications Current Medications Medications Dose Ordered Sig/Nikita Route Start Time Stop Time Status Last Admin Dose Admin Ondansetron HCl 4 mg Q4HP PRN IV 10/09/24 08:00 10/12/24 03:14 4 MG Enoxaparin Sodium 40 mg DAILY SC 10/09/24 10:00 10/13/24 09:52 40 MG Acetaminophen 650 mg Q6HP PRN PO 10/09/24 08:00 10/10/24 01:58 650 MG Nitroglycerin 0.4 mg Q5MINP PRN SL 10/09/24 08:00 Morphine Sulfate 2 mg Q30M PRN IV 10/09/24 08:00 UNV Pantoprazole Sodium 40 mg BID PO 10/09/24 10:00 10/13/24 09:49 40 MG Sucralfate 1 gm QID PO 10/09/24 12:00 10/13/24 06:13 1 GM Thiamine HCl 100 mg DAILY PO 10/09/24 10:00 10/13/24 09:50 100 MG Patient Own Medication 1 tab BID PO 10/09/24 10:00 UNV Patient Own Medication 1 mg DAILY PO 10/09/24 10:00 UNV Morphine Sulfate 2 mg Q30M PRN IV 10/09/24 08:30 Folic Acid 1 mg DAILY PO 10/09/24 10:00 10/13/24 09:49 1 MG Acetaminophen/ Hydrocodone Bitart 1 tab Q4HPRN PRN PO 10/09/24 12:00 10/13/24 06:47 1 TAB Furosemide 80 mg TID IV 10/10/24 12:45 10/13/24 06:18 80 MG Midodrine 5 mg TID@0600,1200,1800 PO 10/11/24 18:00 10/13/24 06:13 5 MG Metolazone 5 mg DAILY PO 10/12/24 10:00 10/13/24 09:51 5 MG Magnesium Sulfate/ Dextrose 100 ml @ 100 mls/hr Q1HR IV 10/13/24 10:00 10/13/24 11:59 10/13/24 09:52 100 MLS/HR Laboratory Results Laboratory Tests 10/10/24 05:50 10/13/24 06:19 Chemistry Test 10/13/24 06:19 Calcium Level 9.3 mg/dL (8.7-10.4) Magnesium Level 1.4 mg/dL (1.6-2.6) L Phosphorus Level 4.4 mg/dL (2.4-5.1) Urinalysis Test 10/09/24 13:07 Urine Color Light-yellow (Yellow) Urine Clarity Clear (Clear) Urine pH 5.5 (5.0-9.0) Urine Specific [place] 1.008 (1.001-1.035) Urine Protein Negative (Negative) Urine Ketones Negative (Negative) Urine Blood Negative /uL (Negative) Urine Nitrite Negative (Negative) Urine Bilirubin Negative (Negative) Urine Urobilinogen Normal mg/dL (Negative) Urine Leukocyte Esterase Negative /uL (Negative) Urine RBC None seen /hpf (0 - 3) Urine Microscopic WBC /HPF (0-3) Urine Squamous Epithelial Cells None seen /hpf (<5) Urine Bacteria None seen /hpf (None Seen) Urine Hyaline Casts Few /lpf (0 - 2) Urine Glucose Normal mg/dL (Normal) Microbiology Microbiology Date/Time Source Procedure Growth Status 10/10/24 02:00 Nose MRSA Screen - Final Complete Assessment/Plan Assessment/Plan Acute on chronic CHF exacerbation with low EF Cardiomyopathy HFrEF, 15% Cardiomegaly JERRELL due to VMN Morbid obesity Acute hypoxic respiratory failure HTN History of peptic ulcer disease fluid overload/edema scrotal edema PLAN: Continue Lasix IV and metolazone DC Lisinopril due to hypotension and JERRELL Continue Midodrine Nephrology on consult Thiamine and folic acid Monitor closely Full code Advanced directives discussed x 16 minutes 10/13/2024: Hypomagnesemia: Replace Hypokalemia: Replace JERRELL: Monitor Heart failure: Continue Lasix and metolazone Continue midodrine Lisinopril was discontinued Monitor closely Replace electrolytes as needed Plan discussed with: Patient My Orders Orders - JARED PORRAS MD Procedure Category Date Status Time May Shower MARIA ISABEL 10/12/24 In Process 15:09 Magnesium Sulfate PHA 10/13/24 In Process 1gm/100ml 10:00 Date of Service: Oct 13, 2024 Billing Provider: JARED PORRAS MD Common Visit Codes: [id number] INP/OBS CARE(HIGH) JARED PORRAS MD Oct 13, 2024 10:57
--- NOTE | 2024-10-13 20:48 | DVHPN2 ---
Progress Note - Dictate Date Seen: Oct 13, 2024 Has the PT tested + for MRSA If YES, has PT been informed?: No Medical Necessity Reason Pt with a Central, PICC or Fol: No Subjective Patient was seen and evaluated in follow up. No acute events overnight. Patient endorses generalized discomfort. With slightly less edema. Labs are remarkable for K 2.9 and Mg 1.4. Creatinine improved to 1.35. vital signs Vital Sign Date Time Temp Pulse Resp B/P (MAP) Pulse Ox O2 Delivery O2 Flow Rate FiO2 10/13/24 16:51 98.3 93 20 111/61 (78) 95 98.3 10/13/24 08:00 Room Air* 0 21 Total Intake and Output 10/12/24 10/12/24 10/13/24 15:00 23:00 07:00 Intake Total 800 ml 450 ml Output Total 3600 ml Balance 800 ml -3150 ml medications Current Medications Medications Dose Ordered Sig/Nikita Route Start Time Stop Time Status Last Admin Dose Admin Ondansetron HCl 4 mg Q4HP PRN IV 10/09/24 08:00 10/12/24 03:14 4 MG Enoxaparin Sodium 40 mg DAILY SC 10/09/24 10:00 10/13/24 09:52 40 MG Acetaminophen 650 mg Q6HP PRN PO 10/09/24 08:00 10/10/24 01:58 650 MG Nitroglycerin 0.4 mg Q5MINP PRN SL 10/09/24 08:00 Morphine Sulfate 2 mg Q30M PRN IV 10/09/24 08:00 UNV Pantoprazole Sodium 40 mg BID PO 10/09/24 10:00 10/13/24 09:49 40 MG Sucralfate 1 gm QID PO 10/09/24 12:00 10/13/24 18:50 1 GM Thiamine HCl 100 mg DAILY PO 10/09/24 10:00 10/13/24 09:50 100 MG Patient Own Medication 1 tab BID PO 10/09/24 10:00 UNV Patient Own Medication 1 mg DAILY PO 10/09/24 10:00 UNV Morphine Sulfate 2 mg Q30M PRN IV 10/09/24 08:30 Folic Acid 1 mg DAILY PO 10/09/24 10:00 10/13/24 09:49 1 MG Acetaminophen/ Hydrocodone Bitart 1 tab Q4HPRN PRN PO 10/09/24 12:00 10/13/24 18:51 1 TAB Furosemide 80 mg TID IV 10/10/24 12:45 10/13/24 13:18 80 MG Midodrine 5 mg TID@0600,1200,1800 PO 10/11/24 18:00 10/13/24 18:50 5 MG Metolazone 5 mg DAILY PO 10/12/24 10:00 10/13/24 09:51 5 MG objective Vitals and nursing notes reviewed. General Appearance: Cooperative, mild distress HEENT: Atraumatic, PERRLA, EOMI, Mucous membr. moist/pink Respiratory: Normal air movement Cardiovascular: Regular rate, Normal S1, Normal S2 Abdominal: Normal bowel sounds, Soft Musculoskeletal: No extremity deformity. BLE edema Neuro: Alert, Oriented X3, Normal speech, Normal tone, Sensation intact Psych/Mental Status: Mental status NL, Mood NL laboratory and microbiology Laboratory Tests 10/13/24 06:19 10/10/24 05:50 Test 10/13/24 06:19 Range/Units Serum Glucose 92 74-106 mg/dL Problem List Acute on chronic CHF exacerbation Cardiomegaly JERRELL Morbid obesity Acute hypoxic respiratory failure History of hypertension History of peptic ulcer disease Assessment/Plan Agree with current supportive medical care. Pulmonary Medicine consulted. Continue diuretics with Lasix 80 mg IV TID. Strict Intake/Output. Avoid nephrotoxic medications. Magnesium and Potassium replacement. Thiamine and folic acid. Midodrine 5 mg PO TID. Metolazone 5 mg daily. Pain management prn. Cardiac diet. GI/DVT prophylaxis. Additional plan as per the hospital course. Dietary Evaluation Review Recommendations by RD: Decrease Calorie Intake Comments: 1) Continue current plan of care 2) Refer CDE for weight management on DC Expected Outcomes/Goals: To maintain weight Fu 3-5 days Plan discussed with: Patient, Other (RN) HARJINDER CROFT DO Oct 13, 2024 20:48
--- NOTE | 2024-10-13 21:10 | DVHPN2 ---
Progress Note - Dictate Date Seen: Oct 13, 2024 Has the PT tested + for MRSA If YES, has PT been informed?: No Medical Necessity Reason Pt with a Central, PICC or Fol: No Subjective [facility] Patient seen and examined at bedside. Breathing comfortably on room air. Overnight events reviewed. vital signs Vital Sign Date Time Temp Pulse Resp B/P (MAP) Pulse Ox O2 Delivery O2 Flow Rate FiO2 10/13/24 16:51 98.3 93 20 111/61 (78) 95 98.3 10/13/24 08:00 Room Air* 0 21 Total Intake and Output 10/12/24 10/12/24 10/13/24 15:00 23:00 07:00 Intake Total 800 ml 450 ml Output Total 3600 ml Balance 800 ml -3150 ml medications Current Medications Medications Dose Ordered Sig/Nikita Route Start Time Stop Time Status Last Admin Dose Admin Ondansetron HCl 4 mg Q4HP PRN IV 10/09/24 08:00 10/12/24 03:14 4 MG Enoxaparin Sodium 40 mg DAILY SC 10/09/24 10:00 10/13/24 09:52 40 MG Acetaminophen 650 mg Q6HP PRN PO 10/09/24 08:00 10/10/24 01:58 650 MG Nitroglycerin 0.4 mg Q5MINP PRN SL 10/09/24 08:00 Morphine Sulfate 2 mg Q30M PRN IV 10/09/24 08:00 UNV Pantoprazole Sodium 40 mg BID PO 10/09/24 10:00 10/13/24 09:49 40 MG Sucralfate 1 gm QID PO 10/09/24 12:00 10/13/24 18:50 1 GM Thiamine HCl 100 mg DAILY PO 10/09/24 10:00 10/13/24 09:50 100 MG Patient Own Medication 1 tab BID PO 10/09/24 10:00 UNV Patient Own Medication 1 mg DAILY PO 10/09/24 10:00 UNV Morphine Sulfate 2 mg Q30M PRN IV 10/09/24 08:30 Folic Acid 1 mg DAILY PO 10/09/24 10:00 10/13/24 09:49 1 MG Acetaminophen/ Hydrocodone Bitart 1 tab Q4HPRN PRN PO 10/09/24 12:00 10/13/24 18:51 1 TAB Furosemide 80 mg TID IV 10/10/24 12:45 10/13/24 13:18 80 MG Midodrine 5 mg TID@0600,1200,1800 PO 10/11/24 18:00 10/13/24 18:50 5 MG Metolazone 5 mg DAILY PO 10/12/24 10:00 10/13/24 09:51 5 MG objective Gen.: Patient lying in bed in no apparent distress. Breathing on room air. Head: Normocephalic, atraumatic. Eyes: EOMI/PERRLA. Ears: Normal hearing. Normal anatomy. Neck/trachea: Trachea midline, supple. Nose: Normal external anatomy. Mouth: Moist mucous membranes. Chest: Decreased air entry bilaterally. No wheezing or rhonchi. Cardiovascular: Positive S1, positive S2. Regular rate and rhythm. Abdomen: Positive bowel sounds in all 4 quadrants. Soft, non-tender, non- distended. : Deferred. Rectal: Deferred. Skin: Warm, dry. Intact. Extremities: 2+ radial pulses bilaterally. No lower extremity edema. Neuro: Awake, alert, oriented x3. No gross motor or sensory deficits. Cranial nerves II through XII intact. Gait not assessed laboratory and microbiology Laboratory Tests 10/13/24 06:19 10/10/24 05:50 Test 10/13/24 06:19 Range/Units Serum Glucose 92 74-106 mg/dL Assessment/Plan Impression: Acute hypoxic respiratory failure Acute on chronic CHF exacerbation, systolic EF 15% Pulmonary hypertension, WHO Class II 2/2 mitral regurgitation, RVSP of 40 mmHg Morbid obesity, BMI 49.6 Acute kidney injury Hx of peptic ulcer disease Snoring Events: Breathing on room air Supplemental oxygen PRN Pt complaining of pain in the legs. Continue diuresis with Lasix TID + metolazone Monitor renal function - creatinine trending down at 1.3 Monitor electrolytes. Supplement as necessary. Monitor ins and outs. Monitor hemoglobin Continue Protonix BID + sucralfate Again reviewed with pt the need to follow up as outpatient due to multiple risk factors for ROSIE. Labs and imaging reviewed. Rest of plan as noted below. Plan: Supplemental oxygen PRN Titrate to keep O2 sats above 92%. CXR showed findings c/w cardiomegaly Echo reviewed; shows RVSP of 40 mmHg, EF 15%. Moderate to severe mitral regurgitation Cardiology recs appreciated. Diuresis with Lasix TID + metolazone Monitor renal function Monitor electrolytes. Supplement as necessary. Monitor ins and outs. On Protonix BID for hx of peptic ulcer disease Sucralfate Monitor hemoglobin- currently stable. Recommend outpatient sleep study d/t snoring; STOP-BANG score of >5. Diet and lifestyle modifications for weight reduction Morbid obesity - complicates all care GI prophylaxis - Protonix BID DVT prophylaxis - Lovenox Prognosis: Guarded given patient's multiple co-morbidities. Rest of plan per hospitalist and other consultants. Thank you Dr. Singletary, for allowing me to participate in this patient's care. Further recommendations will depend on the patient's clinical course. Please do not hesitate to contact me if you have any questions or concerns. This medical document was created using an electronic medical record system with [employer] dictation system. Although these documentations are being carefully reviewed, there may still be some phonetic and typographical changes. The errors are purely typographical, due to imperfection on the software program, and do not reflect any compromise in the patient's medical care. Dietary Evaluation Review Recommendations by RD: Decrease Calorie Intake Comments: 1) Continue current plan of care 2) Refer CDE for weight management on DC Expected Outcomes/Goals: To maintain weight Fu 3-5 days Plan discussed with: Patient, Other (RIGO Tee) RAJAN OCONNELL MD Oct 13, 2024 21:10
[2024-10-14] VITALS (8 sets, daily range): BP systolic 105–134; BP diastolic 58–81; PULSE 73–102; RESP 15–20; TEMP 96.7–99.3; O2SAT 93–100
[2024-10-14 06:33] LABS: Alanine Aminotransferase 11 U/L (7-40); Alkaline Phosphatase 98 U/L (46-116); Anion Gap 10 (5-15); Aspartate Aminotransferase 20 U/L (13-40); BUN/Creatinine Ratio 14.6 (10.0-20.0); Blood Urea Nitrogen 19 mg/dL (9-23); Calcium 9.8 mg/dL (8.7-10.4); Glucose 82 mg/dL (74-106); Magnesium 1.7 mg/dL (1.6-2.6); Total Protein 7.3 g/dL (5.7-8.2)
[2024-10-14 07:21] LABS: Bilirubin, Total 1.5 mg/dL (0.2-1.0); Carbon Dioxide 38 mmol/L (20-31); Chloride 88 mmol/L (98-107); Sodium 136 mmol/L (136-145)
[2024-10-14 07:26] LABS: Potassium 2.4 mmol/L (3.5-5.1)
[2024-10-14] MEDS: POTASSIUM CHL 20 Meq TABLET PO ONE ×3 (09:02→20:30)
[2024-10-14] MEDS: MAGNESIUM SULFATE 1GM/100ML 100 ML IV ONE (09:04)
[2024-10-14 15:32] LABS: Potassium 2.9 mmol/L (3.5-5.1)
[2024-10-14 15:38] LABS: Magnesium 1.7 mg/dL (1.6-2.6)
--- NOTE | 2024-10-14 20:13 | DVHPN2 ---
Subjective Diuresing well Reviewed: Care Plan, H&P, Medications, Previous Orders, Radiology Changes from previous H/P or p: Changes General: Per HPI Cardiovascular: Edema Respiratory: Shortness of breath Musculoskeletal: foot pain Objective Vitals Vital Signs Date Time Temp Pulse Resp B/P (MAP) Pulse Ox O2 Delivery O2 Flow Rate FiO2 10/14/24 17:00 96.7 89 18 117/76 (90) 94 96.7 10/14/24 08:05 Room Air* 0 21 Intake/Output Intake and Output 10/14/24 07:00 Intake Total 1680 ml Output Total 5600 ml Balance -3920 ml Intake Oral 1480 ml IV Total 200 ml Output Urine Total 5600 ml # Voids 7 General Appearance: Alert, Oriented X3, Cooperative, No acute distress Lungs: Clear to auscultation, Normal air movement Cardiovascular: Regular rate, Normal S1, Normal S2 Abdomen: Normal bowel sounds, Soft, No tenderness Extremities: Other (2+ edema B legs) Medications Current Medications Medications Dose Ordered Sig/Nikita Route Start Time Stop Time Status Last Admin Dose Admin Ondansetron HCl 4 mg Q4HP PRN IV 10/09/24 08:00 10/12/24 03:14 4 MG Enoxaparin Sodium 40 mg DAILY SC 10/09/24 10:00 10/14/24 09:02 40 MG Acetaminophen 650 mg Q6HP PRN PO 10/09/24 08:00 10/10/24 01:58 650 MG Nitroglycerin 0.4 mg Q5MINP PRN SL 10/09/24 08:00 Morphine Sulfate 2 mg Q30M PRN IV 10/09/24 08:00 UNV Pantoprazole Sodium 40 mg BID PO 10/09/24 10:00 10/14/24 09:02 40 MG Sucralfate 1 gm QID PO 10/09/24 12:00 10/14/24 17:11 1 GM Thiamine HCl 100 mg DAILY PO 10/09/24 10:00 10/14/24 09:02 100 MG Patient Own Medication 1 tab BID PO 10/09/24 10:00 UNV Patient Own Medication 1 mg DAILY PO 10/09/24 10:00 UNV Morphine Sulfate 2 mg Q30M PRN IV 10/09/24 08:30 Folic Acid 1 mg DAILY PO 10/09/24 10:00 10/14/24 09:02 1 MG Acetaminophen/ Hydrocodone Bitart 1 tab Q4HPRN PRN PO 10/09/24 12:00 10/14/24 12:36 1 TAB Furosemide 80 mg TID IV 10/10/24 12:45 10/14/24 12:37 80 MG Midodrine 5 mg TID@0600,1200,1800 PO 10/11/24 18:00 10/14/24 17:12 5 MG Metolazone 5 mg DAILY PO 10/12/24 10:00 10/14/24 09:14 5 MG Laboratory Results Laboratory Tests 10/10/24 05:50 10/14/24 04:55 10/14/24 15:07 Chemistry Test 10/14/24 04:55 10/14/24 15:07 Albumin 4.0 g/dL (3.2-4.8) Calcium Level 9.8 mg/dL (8.7-10.4) Magnesium Level 1.7 mg/dL (1.6-2.6) 1.7 mg/dL (1.6-2.6) Total Protein 7.3 g/dL (5.7-8.2) LFT Test 10/14/24 04:55 Alanine Aminotransferase (ALT) 11 U/L (7-40) Alkaline Phosphatase 98 U/L (46-116) Aspartate Amino Transferase (AST) 20 U/L (13-40) Total Bilirubin 1.5 mg/dL (0.2-1.0) H Urinalysis Test 10/09/24 13:07 Urine Color Light-yellow (Yellow) Urine Clarity Clear (Clear) Urine pH 5.5 (5.0-9.0) Urine Specific [place] 1.008 (1.001-1.035) Urine Protein Negative (Negative) Urine Ketones Negative (Negative) Urine Blood Negative /uL (Negative) Urine Nitrite Negative (Negative) Urine Bilirubin Negative (Negative) Urine Urobilinogen Normal mg/dL (Negative) Urine Leukocyte Esterase Negative /uL (Negative) Urine RBC None seen /hpf (0 - 3) Urine Microscopic WBC /HPF (0-3) Urine Squamous Epithelial Cells None seen /hpf (<5) Urine Bacteria None seen /hpf (None Seen) Urine Hyaline Casts Few /lpf (0 - 2) Urine Glucose Normal mg/dL (Normal) Microbiology Microbiology Date/Time Source Procedure Growth Status 10/10/24 02:00 Nose MRSA Screen - Final Complete Assessment/Plan Assessment/Plan Acute on chronic CHF exacerbation with low EF Cardiomyopathy HFrEF, 15% Cardiomegaly JERRELL due to VMN Morbid obesity Acute hypoxic respiratory failure HTN History of peptic ulcer disease fluid overload/edema scrotal edema PLAN: Continue Lasix IV and metolazone DC Lisinopril due to hypotension and JERRELL Continue Midodrine Nephrology on consult Thiamine and folic acid Monitor closely Full code Advanced directives discussed x 16 minutes 10/13/2024: Hypomagnesemia: Replace Hypokalemia: Replace JERRELL: Monitor Heart failure: Continue Lasix and metolazone Continue midodrine Lisinopril was discontinued Monitor closely Replace electrolytes as needed 10/14/24: Hypokalemia: replace Hypomagnesemia: Replace Lasix Metolazone Midodrine Plan discussed with: Patient Date of Service: Oct 14, 2024 Billing Provider: JARED PORRAS MD Common Visit Codes: [id number] INP/OBS CARE(HIGH) JARED PORRAS MD Oct 14, 2024 20:13
--- NOTE | 2024-10-14 20:27 | DVHPN2 ---
Progress Note - Dictate Date Seen: Oct 14, 2024 Has the PT tested + for MRSA If YES, has PT been informed?: No Medical Necessity Reason Pt with a Central, PICC or Fol: No Subjective [facility] [place] Patient seen and examined at bedside. Breathing comfortably on room air. Overnight events reviewed. vital signs Vital Sign Date Time Temp Pulse Resp B/P (MAP) Pulse Ox O2 Delivery O2 Flow Rate FiO2 10/14/24 17:00 96.7 89 18 117/76 (90) 94 96.7 10/14/24 08:05 Room Air* 0 21 Total Intake and Output 10/13/24 10/13/24 10/14/24 15:00 23:00 07:00 Intake Total 200 ml 780 ml 700 ml Output Total 5600 ml Balance 200 ml 780 ml -4900 ml medications Current Medications Medications Dose Ordered Sig/Nikita Route Start Time Stop Time Status Last Admin Dose Admin Ondansetron HCl 4 mg Q4HP PRN IV 10/09/24 08:00 10/12/24 03:14 4 MG Enoxaparin Sodium 40 mg DAILY SC 10/09/24 10:00 10/14/24 09:02 40 MG Acetaminophen 650 mg Q6HP PRN PO 10/09/24 08:00 10/10/24 01:58 650 MG Nitroglycerin 0.4 mg Q5MINP PRN SL 10/09/24 08:00 Morphine Sulfate 2 mg Q30M PRN IV 10/09/24 08:00 UNV Pantoprazole Sodium 40 mg BID PO 10/09/24 10:00 10/14/24 09:02 40 MG Sucralfate 1 gm QID PO 10/09/24 12:00 10/14/24 17:11 1 GM Thiamine HCl 100 mg DAILY PO 10/09/24 10:00 10/14/24 09:02 100 MG Patient Own Medication 1 tab BID PO 10/09/24 10:00 UNV Patient Own Medication 1 mg DAILY PO 10/09/24 10:00 UNV Morphine Sulfate 2 mg Q30M PRN IV 10/09/24 08:30 Folic Acid 1 mg DAILY PO 10/09/24 10:00 10/14/24 09:02 1 MG Acetaminophen/ Hydrocodone Bitart 1 tab Q4HPRN PRN PO 10/09/24 12:00 10/14/24 12:36 1 TAB Furosemide 80 mg TID IV 10/10/24 12:45 10/14/24 12:37 80 MG Midodrine 5 mg TID@0600,1200,1800 PO 10/11/24 18:00 10/14/24 17:12 5 MG Metolazone 5 mg DAILY PO 10/12/24 10:00 10/14/24 09:14 5 MG Magnesium Oxide 400 mg BID PO 10/14/24 22:00 UNV objective Gen.: Patient lying in bed in no apparent distress. Breathing on room air. Head: Normocephalic, atraumatic. Eyes: EOMI/PERRLA. Ears: Normal hearing. Normal anatomy. Neck/trachea: Trachea midline, supple. Nose: Normal external anatomy. Mouth: Moist mucous membranes. Chest: Decreased air entry bilaterally. No wheezing or rhonchi. Cardiovascular: Positive S1, positive S2. Regular rate and rhythm. Abdomen: Positive bowel sounds in all 4 quadrants. Soft, non-tender, non- distended. : Deferred. Rectal: Deferred. Skin: Warm, dry. Intact. Extremities: 2+ radial pulses bilaterally. No lower extremity edema. Neuro: Awake, alert, oriented x3. No gross motor or sensory deficits. Cranial nerves II through XII intact. Gait not assessed laboratory and microbiology Laboratory Tests 10/14/24 15:07 10/14/24 04:55 10/10/24 05:50 Test 10/14/24 04:55 Range/Units Serum Glucose 82 74-106 mg/dL Assessment/Plan Impression: Acute hypoxic respiratory failure Acute on chronic CHF exacerbation, systolic EF 15% Pulmonary hypertension, WHO Class II 2/2 mitral regurgitation, RVSP of 40 mmHg Morbid obesity, BMI 49.6 Acute kidney injury Hx of peptic ulcer disease Snoring Events: Breathing on room air Supplemental oxygen PRN Continue diuresis with Lasix TID + metolazone Monitor renal function Monitor electrolytes. Supplement as necessary Potassium, magnesium supplementation Monitor ins and outs. Midodrine for blood pressure support Monitor hemoglobin Continue Protonix BID + sucralfate Lovenox for DVT prophylaxis Labs and imaging reviewed. Rest of plan as noted below. Plan: Supplemental oxygen PRN Titrate to keep O2 sats above 92%. CXR showed findings c/w cardiomegaly Echo reviewed; shows RVSP of 40 mmHg, EF 15%. Moderate to severe mitral regurgitation Cardiology recs appreciated. Diuresis with Lasix TID + metolazone Monitor renal function Monitor electrolytes. Supplement as necessary. Monitor ins and outs. On Protonix BID for hx of peptic ulcer disease Sucralfate Monitor hemoglobin. Recommend outpatient sleep study d/t snoring, multiple risk factors for ROSIE; STOP-BANG score of >5. Diet and lifestyle modifications for weight reduction Morbid obesity - complicates all care GI prophylaxis - Protonix BID DVT prophylaxis - Lovenox Prognosis: Guarded given patient's multiple co-morbidities. Rest of plan per hospitalist and other consultants. Thank you Dr. Singletary, for allowing me to participate in this patient's care. Further recommendations will depend on the patient's clinical course. Please do not hesitate to contact me if you have any questions or concerns. This medical document was created using an electronic medical record system with [email or web address] dictation system. Although these documentations are being carefully reviewed, there may still be some phonetic and typographical changes. The errors are purely typographical, due to imperfection on the software program, and do not reflect any compromise in the patient's medical care. Dietary Evaluation Review Recommendations by RD: Decrease Calorie Intake Comments: 1) Continue current plan of care 2) Refer CDE for weight management on DC Expected Outcomes/Goals: To maintain weight Fu 3-5 days Plan discussed with: Patient, Other (RIGO Lopez) RAJAN OCONNELL MD Oct 14, 2024 20:27
--- NOTE | 2024-10-14 20:30 | DVHPN2 ---
Progress Note - Dictate Date Seen: Oct 14, 2024 Has the PT tested + for MRSA If YES, has PT been informed?: No Medical Necessity Reason Pt with a Central, PICC or Fol: No Subjective Patient was seen and evaluated in follow up. No acute events overnight. No new complaints. Continues diuresing well. Creatinine normalized. K is low at 2.4. vital signs Vital Sign Date Time Temp Pulse Resp B/P (MAP) Pulse Ox O2 Delivery O2 Flow Rate FiO2 10/14/24 17:00 96.7 89 18 117/76 (90) 94 96.7 10/14/24 08:05 Room Air* 0 21 Total Intake and Output 10/13/24 10/13/24 10/14/24 15:00 23:00 07:00 Intake Total 200 ml 780 ml 700 ml Output Total 5600 ml Balance 200 ml 780 ml -4900 ml medications Current Medications Medications Dose Ordered Sig/Nikita Route Start Time Stop Time Status Last Admin Dose Admin Ondansetron HCl 4 mg Q4HP PRN IV 10/09/24 08:00 10/12/24 03:14 4 MG Enoxaparin Sodium 40 mg DAILY SC 10/09/24 10:00 10/14/24 09:02 40 MG Acetaminophen 650 mg Q6HP PRN PO 10/09/24 08:00 10/10/24 01:58 650 MG Nitroglycerin 0.4 mg Q5MINP PRN SL 10/09/24 08:00 Morphine Sulfate 2 mg Q30M PRN IV 10/09/24 08:00 UNV Pantoprazole Sodium 40 mg BID PO 10/09/24 10:00 10/14/24 09:02 40 MG Sucralfate 1 gm QID PO 10/09/24 12:00 10/14/24 17:11 1 GM Thiamine HCl 100 mg DAILY PO 10/09/24 10:00 10/14/24 09:02 100 MG Patient Own Medication 1 tab BID PO 10/09/24 10:00 UNV Patient Own Medication 1 mg DAILY PO 10/09/24 10:00 UNV Morphine Sulfate 2 mg Q30M PRN IV 10/09/24 08:30 Folic Acid 1 mg DAILY PO 10/09/24 10:00 10/14/24 09:02 1 MG Acetaminophen/ Hydrocodone Bitart 1 tab Q4HPRN PRN PO 10/09/24 12:00 10/14/24 12:36 1 TAB Furosemide 80 mg TID IV 10/10/24 12:45 10/14/24 12:37 80 MG Midodrine 5 mg TID@0600,1200,1800 PO 10/11/24 18:00 10/14/24 17:12 5 MG Metolazone 5 mg DAILY PO 10/12/24 10:00 10/14/24 09:14 5 MG Magnesium Oxide 400 mg BID PO 10/14/24 22:00 UNV objective Vitals and nursing notes reviewed. General Appearance: Cooperative, mild distress HEENT: Atraumatic, PERRLA, EOMI, Mucous membr. moist/pink Respiratory: Normal air movement Cardiovascular: Regular rate, Normal S1, Normal S2 Abdominal: Normal bowel sounds, Soft Musculoskeletal: No extremity deformity. BLE edema +2 Neuro: Alert, Oriented X3, Normal speech, Normal tone, Sensation intact Psych/Mental Status: Mental status NL, Mood NL laboratory and microbiology Laboratory Tests 10/14/24 15:07 10/14/24 04:55 10/10/24 05:50 Test 10/14/24 04:55 Range/Units Serum Glucose 82 74-106 mg/dL Problem List Acute on chronic CHF exacerbation Cardiomegaly JERRELL Morbid obesity Acute hypoxic respiratory failure History of hypertension History of peptic ulcer disease Assessment/Plan Agree with current supportive medical care. Continue diuretics with Lasix 80 mg IV TID. Strict Intake/Output. Avoid nephrotoxic medications. Magnesium and Potassium replacement. Thiamine and folic acid. Cardiac diet. GI/DVT prophylaxis. No further input from Nephrology standpoint. Will sign off. Recommended follow up as outpatient upon discharge. Please call if clinical changes occur. Dietary Evaluation Review Recommendations by RD: Decrease Calorie Intake Comments: 1) Continue current plan of care 2) Refer CDE for weight management on DC Expected Outcomes/Goals: To maintain weight Fu 3-5 days Plan discussed with: Patient, Other HARJINDER CROFT DO Oct 14, 2024 20:30
[2024-10-14] MEDS: MAGNESIUM OXIDE 400 MG TAB PO SCH (21:22)
[2024-10-15] VITALS (8 sets, daily range): BP systolic 110–130; BP diastolic 7–78; PULSE 67–106; RESP 15–18; TEMP 97.6–98.5; O2SAT 90–99
[2024-10-15 06:29] LABS: Calcium 9.5 mg/dL (8.7-10.4)
[2024-10-15 06:34] LABS: Glucose 94 mg/dL (74-106)
[2024-10-15 06:35] LABS: BUN/Creatinine Ratio 13.8 (10.0-20.0); Blood Urea Nitrogen 18 mg/dL (9-23); Magnesium 1.7 mg/dL (1.6-2.6)
--- NOTE | 2024-10-15 06:58 | ECG ---
[facility] Test Date: 2024-10-09 Test Time: 04:43:16 Pat Name: SRI ESCOBAR Department: ER Room: 0285T B Gender: M Sales Trainee: PH : 1985 Requested By: KAMALA BRODY Order Number: [id number] Reading MD: Shivam Boston Measurements Intervals [place] Rate: 91 P: 80 NH: 185 QRS: -64 QRSD: 123 T: 0 QT: 430 QTc: 530 Interpretive Statements Sinus rhythm Atrial premature complex LAE, consider biatrial enlargement Nonspecific IVCD with LAD Anterior infarct, old Abnormal T, probable ischemia, inferior leads Borderline ST elevation, lateral leads Baseline wander in lead(s) III,V1 Electronically Signed On 10-15-2024 9:32:09 PDT by Shivam Boston Please click the below link to view image of tracing.
[2024-10-15 07:35] LABS: Chloride 86 mmol/L (98-107); Potassium 3.1 mmol/L (3.5-5.1); Sodium 135 mmol/L (136-145)
[2024-10-15 07:48] LABS: Anion Gap 8.99999 (5-15); Carbon Dioxide > 40 mmol/L (20-31)
--- NOTE | 2024-10-15 10:35 | DVHPN2 ---
Subjective Diuresing well Potassium is better but is still low Edema is better Reviewed: Care Plan, H&P, Medications, Previous Orders, Radiology Changes from previous H/P or p: Changes General: Per HPI Cardiovascular: Edema Respiratory: Shortness of breath Musculoskeletal: foot pain Objective Vitals Vital Signs Date Time Temp Pulse Resp B/P (MAP) Pulse Ox O2 Delivery O2 Flow Rate FiO2 10/15/24 09:23 114/76 10/15/24 09:00 98.0 106 18 93 98.0 10/15/24 08:05 Room Air* 0 21 Intake/Output Intake and Output 10/15/24 07:00 Intake Total 1100 ml Output Total 5625 ml Balance -4525 ml Intake Oral 1100 ml Output Urine Total 5625 ml # Voids 10 # Bowel Movements 1 General Appearance: Alert, Oriented X3, Cooperative, No acute distress Lungs: Clear to auscultation, Normal air movement Cardiovascular: Regular rate, Normal S1, Normal S2 Abdomen: Normal bowel sounds, Soft, No tenderness Extremities: Other (2+ edema B legs) Medications Current Medications Medications Dose Ordered Sig/Nikita Route Start Time Stop Time Status Last Admin Dose Admin Ondansetron HCl 4 mg Q4HP PRN IV 10/09/24 08:00 10/12/24 03:14 4 MG Enoxaparin Sodium 40 mg DAILY SC 10/09/24 10:00 10/15/24 09:23 40 MG Acetaminophen 650 mg Q6HP PRN PO 10/09/24 08:00 10/10/24 01:58 650 MG Nitroglycerin 0.4 mg Q5MINP PRN SL 10/09/24 08:00 Morphine Sulfate 2 mg Q30M PRN IV 10/09/24 08:00 UNV Pantoprazole Sodium 40 mg BID PO 10/09/24 10:00 10/15/24 09:23 40 MG Sucralfate 1 gm QID PO 10/09/24 12:00 10/15/24 05:57 1 GM Thiamine HCl 100 mg DAILY PO 10/09/24 10:00 10/15/24 09:23 100 MG Patient Own Medication 1 tab BID PO 10/09/24 10:00 UNV Patient Own Medication 1 mg DAILY PO 10/09/24 10:00 UNV Morphine Sulfate 2 mg Q30M PRN IV 10/09/24 08:30 Folic Acid 1 mg DAILY PO 10/09/24 10:00 10/15/24 09:23 1 MG Acetaminophen/ Hydrocodone Bitart 1 tab Q4HPRN PRN PO 10/09/24 12:00 10/15/24 05:58 1 TAB Furosemide 80 mg TID IV 10/10/24 12:45 10/15/24 05:58 80 MG Midodrine 5 mg TID@0600,1200,1800 PO 10/11/24 18:00 10/15/24 05:57 5 MG Metolazone 5 mg DAILY PO 10/12/24 10:00 10/15/24 09:23 5 MG Magnesium Oxide 400 mg BID PO 10/14/24 22:00 10/15/24 09:23 400 MG Magnesium Sulfate/ Dextrose 100 ml @ 100 mls/hr Q1HR IV 10/15/24 10:00 10/15/24 11:59 Laboratory Results Laboratory Tests 10/10/24 05:50 10/15/24 05:34 Chemistry Test 10/14/24 15:07 10/15/24 05:34 Magnesium Level 1.7 mg/dL (1.6-2.6) 1.7 mg/dL (1.6-2.6) Calcium Level 9.5 mg/dL (8.7-10.4) Urinalysis Test 10/09/24 13:07 Urine Color Light-yellow (Yellow) Urine Clarity Clear (Clear) Urine pH 5.5 (5.0-9.0) Urine Specific [place] 1.008 (1.001-1.035) Urine Protein Negative (Negative) Urine Ketones Negative (Negative) Urine Blood Negative /uL (Negative) Urine Nitrite Negative (Negative) Urine Bilirubin Negative (Negative) Urine Urobilinogen Normal mg/dL (Negative) Urine Leukocyte Esterase Negative /uL (Negative) Urine RBC None seen /hpf (0 - 3) Urine Microscopic WBC /HPF (0-3) Urine Squamous Epithelial Cells None seen /hpf (<5) Urine Bacteria None seen /hpf (None Seen) Urine Hyaline Casts Few /lpf (0 - 2) Urine Glucose Normal mg/dL (Normal) Microbiology Microbiology Date/Time Source Procedure Growth Status 10/10/24 02:00 Nose MRSA Screen - Final Complete Assessment/Plan Assessment/Plan Acute on chronic CHF exacerbation with low EF Cardiomyopathy HFrEF, 15% Cardiomegaly JERRELL due to VMN Morbid obesity Acute hypoxic respiratory failure HTN History of peptic ulcer disease fluid overload/edema scrotal edema PLAN: Continue Lasix IV and metolazone DC Lisinopril due to hypotension and JERRELL Continue Midodrine Nephrology on consult Thiamine and folic acid Monitor closely Full code Advanced directives discussed x 16 minutes 10/13/2024: Hypomagnesemia: Replace Hypokalemia: Replace JERRELL: Monitor Heart failure: Continue Lasix and metolazone Continue midodrine Lisinopril was discontinued Monitor closely Replace electrolytes as needed 10/14/24: Hypokalemia: replace Hypomagnesemia: Replace Lasix Metolazone Midodrine 10/15/2024: Hypokalemia and hypomagnesemia: Replace Generalized edema: Continue Lasix and metolazone Monitor closely The rest of the management will depend on the hospital course Complains of pain in the feet and legs: Increase [place] to 10 mg Plan discussed with: Patient My Orders Orders - JARED PORRAS MD Procedure Category Date Status Time Magnesium Oxide PHA 10/14/24 In Process Tablet (Mag-Ox Tablet) 22:00 Magnesium Sulfate PHA 10/15/24 In Process 1gm/100ml 10:00 Date of Service: Oct 15, 2024 Billing Provider: JARED PORRAS MD Common Visit Codes: [id number] INP/OBS CARE(HIGH) JARED PORRAS MD Oct 15, 2024 10:35
[2024-10-15] MEDS: POTASSIUM CHL 20 Meq TABLET PO ONE (11:11)
[2024-10-15] MEDS: MAGNESIUM SULFATE 1GM/100ML 100 ML IV SCH (11:11)
[2024-10-15] MEDS: HYDROcodone-ACET 10/325MG TAB PO PRN (11:11)
[2024-10-15 19:07] LABS: Base Excess 15.7 mmol/L (-2.0-3.0)
--- NOTE | 2024-10-15 23:35 | DVHPN2 ---
Progress Note - Dictate Date Seen: Oct 15, 2024 Has the PT tested + for MRSA If YES, has PT been informed?: No Medical Necessity Reason Pt with a Central, PICC or Fol: No Subjective [facility] Patient seen and examined at bedside. Breathing comfortably on room air. Overnight events reviewed. vital signs Vital Sign Date Time Temp Pulse Resp B/P (MAP) Pulse Ox O2 Delivery O2 Flow Rate FiO2 10/15/24 21:13 131/82 10/15/24 21:00 97.6 89 15 95 97.6 10/15/24 20:00 Room Air* 0 21 Total Intake and Output 10/14/24 10/14/24 10/15/24 15:00 23:00 07:00 Intake Total 600 ml 500 ml Output Total 5625 ml Balance -5025 ml 500 ml medications Current Medications Medications Dose Ordered Sig/Nikita Route Start Time Stop Time Status Last Admin Dose Admin Ondansetron HCl 4 mg Q4HP PRN IV 10/09/24 08:00 10/12/24 03:14 4 MG Enoxaparin Sodium 40 mg DAILY SC 10/09/24 10:00 10/15/24 09:23 40 MG Acetaminophen 650 mg Q6HP PRN PO 10/09/24 08:00 10/10/24 01:58 650 MG Nitroglycerin 0.4 mg Q5MINP PRN SL 10/09/24 08:00 Morphine Sulfate 2 mg Q30M PRN IV 10/09/24 08:00 UNV Pantoprazole Sodium 40 mg BID PO 10/09/24 10:00 10/15/24 21:14 40 MG Sucralfate 1 gm QID PO 10/09/24 12:00 10/15/24 21:14 1 GM Thiamine HCl 100 mg DAILY PO 10/09/24 10:00 10/15/24 09:23 100 MG Patient Own Medication 1 tab BID PO 10/09/24 10:00 UNV Patient Own Medication 1 mg DAILY PO 10/09/24 10:00 UNV Morphine Sulfate 2 mg Q30M PRN IV 10/09/24 08:30 Folic Acid 1 mg DAILY PO 10/09/24 10:00 10/15/24 09:23 1 MG Furosemide 80 mg TID IV 10/10/24 12:45 10/15/24 21:13 80 MG Midodrine 5 mg TID@0600,1200,1800 PO 10/11/24 18:00 10/15/24 17:21 5 MG Metolazone 5 mg DAILY PO 10/12/24 10:00 10/15/24 09:23 5 MG Magnesium Oxide 400 mg BID PO 10/14/24 22:00 10/15/24 21:14 400 MG Acetaminophen/ Hydrocodone Bitart 1 tab Q6HP PRN PO 10/15/24 10:30 10/15/24 17:33 1 TAB objective Gen.: Patient lying in bed in no apparent distress. Breathing on room air. Head: Normocephalic, atraumatic. Eyes: EOMI/PERRLA. Ears: Normal hearing. Normal anatomy. Neck/trachea: Trachea midline, supple. Nose: Normal external anatomy. Mouth: Moist mucous membranes. Chest: Decreased air entry bilaterally. No wheezing or rhonchi. Cardiovascular: Positive S1, positive S2. Regular rate and rhythm. Abdomen: Positive bowel sounds in all 4 quadrants. Soft, non-tender, non- distended. : Deferred. Rectal: Deferred. Skin: Warm, dry. Intact. Extremities: 2+ radial pulses bilaterally. No lower extremity edema. Neuro: Awake, alert, oriented x3. No gross motor or sensory deficits. Cranial nerves II through XII intact. Gait not assessed laboratory and microbiology Laboratory Tests 10/15/24 05:34 10/10/24 05:50 Test 10/15/24 05:34 Range/Units Serum Glucose 94 74-106 mg/dL Assessment/Plan Impression: Acute hypoxic respiratory failure Acute on chronic CHF exacerbation, systolic EF 15% Pulmonary hypertension, WHO Class II 2/2 mitral regurgitation, RVSP of 40 mmHg Morbid obesity, BMI 49.6 Acute kidney injury Hx of peptic ulcer disease Snoring Events: Breathing on room air Supplemental oxygen PRN Bicarb elevated on BMP Obtain ABG to assess CO2 Hypercarbia possible due to ROSIE/OHS vs. contraction alkalosis from diuresis May need BiPAP for chronic hypercarbic respiratory failure if PaCO2 is greater than or equal to 50 mmHg Midodrine for BP support Continue diuresis with Lasix TID + metolazone Monitor renal function Monitor electrolytes. Supplement as necessary Potassium, magnesium supplementation Monitor ins and outs. Midodrine for blood pressure support Monitor hemoglobin Continue Protonix BID + sucralfate Lovenox for DVT prophylaxis Labs and imaging reviewed. Rest of plan as noted below. Plan: Supplemental oxygen PRN Titrate to keep O2 sats above 92%. CXR showed findings c/w cardiomegaly Echo reviewed; shows RVSP of 40 mmHg, EF 15%. Moderate to severe mitral regurgitation Cardiology recs appreciated. Diuresis with Lasix TID + metolazone Monitor renal function Monitor electrolytes. Supplement as necessary. Monitor ins and outs. On Protonix BID for hx of peptic ulcer disease Sucralfate Monitor hemoglobin. Recommend outpatient sleep study d/t snoring, multiple risk factors for ROSIE; STOP-BANG score of >5. Diet and lifestyle modifications for weight reduction Morbid obesity - complicates all care GI prophylaxis - Protonix BID DVT prophylaxis - Lovenox Prognosis: Guarded given patient's multiple co-morbidities. Rest of plan per hospitalist and other consultants. Thank you Dr. Singletary, for allowing me to participate in this patient's care. Further recommendations will depend on the patient's clinical course. Please do not hesitate to contact me if you have any questions or concerns. This medical document was created using an electronic medical record system with [employer] dictation system. Although these documentations are being carefully reviewed, there may still be some phonetic and typographical changes. The errors are purely typographical, due to imperfection on the software program, and do not reflect any compromise in the patient's medical care. Dietary Evaluation Review Recommendations by RD: Decrease Calorie Intake Comments: 1) Continue current plan of care 2) Refer CDE for weight management on DC Expected Outcomes/Goals: To maintain weight Fu 3-5 days Plan discussed with: Patient, Other (RIGO Lopez) RAJAN OCONNELL MD Oct 15, 2024 23:35
[2024-10-16] VITALS (8 sets, daily range): BP systolic 106–123; BP diastolic 63–88; PULSE 64–105; RESP 14–18; TEMP 97.2–99.3; O2SAT 90–96
[2024-10-16 06:39] LABS: Calcium 9.8 mg/dL (8.7-10.4)
[2024-10-16 06:45] LABS: BUN/Creatinine Ratio 12.6 (10.0-20.0); Blood Urea Nitrogen 17 mg/dL (9-23); Glucose 90 mg/dL (74-106)
[2024-10-16 07:17] LABS: Anion Gap 10.99999 (5-15); Chloride 83 mmol/L (98-107); Potassium 2.9 mmol/L (3.5-5.1); Sodium 134 mmol/L (136-145)
[2024-10-16 07:19] LABS: Carbon Dioxide > 40 mmol/L (20-31)
[2024-10-16] MEDS: POTASSIUM CHL 20 Meq TABLET PO ONE ×2 (11:32→17:55)
--- NOTE | 2024-10-16 15:20 | DVHPN2 ---
Subjective Potassium is still low at 2.9 Edema is better Reviewed: Care Plan, H&P, Medications, Previous Orders, Radiology Changes from previous H/P or p: Changes General: Per HPI Cardiovascular: Edema Respiratory: Shortness of breath Musculoskeletal: foot pain Objective Vitals Vital Signs Date Time Temp Pulse Resp B/P (MAP) Pulse Ox O2 Delivery O2 Flow Rate FiO2 10/16/24 13:47 115/80 10/16/24 12:56 97.2 94 18 96 97.2 10/16/24 08:00 Room Air* 0 21 Intake/Output Intake and Output 10/16/24 07:00 Intake Total 1100 ml Output Total 3500 ml Balance -2400 ml Intake Oral 1000 ml IV Total 100 ml Output Urine Total 3500 ml # Voids 8 # Bowel Movements 1 General Appearance: Alert, Oriented X3, Cooperative, No acute distress Lungs: Clear to auscultation, Normal air movement Cardiovascular: Regular rate, Normal S1, Normal S2 Abdomen: Normal bowel sounds, Soft, No tenderness Extremities: Other (2+ edema B legs) Medications Current Medications Medications Dose Ordered Sig/Nikita Route Start Time Stop Time Status Last Admin Dose Admin Ondansetron HCl 4 mg Q4HP PRN IV 10/09/24 08:00 10/12/24 03:14 4 MG Enoxaparin Sodium 40 mg DAILY SC 10/09/24 10:00 10/16/24 09:45 40 MG Acetaminophen 650 mg Q6HP PRN PO 10/09/24 08:00 10/10/24 01:58 650 MG Nitroglycerin 0.4 mg Q5MINP PRN SL 10/09/24 08:00 Morphine Sulfate 2 mg Q30M PRN IV 10/09/24 08:00 UNV Pantoprazole Sodium 40 mg BID PO 10/09/24 10:00 10/16/24 09:46 40 MG Sucralfate 1 gm QID PO 10/09/24 12:00 10/16/24 11:32 1 GM Thiamine HCl 100 mg DAILY PO 10/09/24 10:00 10/16/24 09:45 100 MG Patient Own Medication 1 tab BID PO 10/09/24 10:00 UNV Patient Own Medication 1 mg DAILY PO 10/09/24 10:00 UNV Morphine Sulfate 2 mg Q30M PRN IV 10/09/24 08:30 Folic Acid 1 mg DAILY PO 10/09/24 10:00 10/16/24 09:45 1 MG Furosemide 80 mg TID IV 10/10/24 12:45 10/16/24 13:47 80 MG Midodrine 5 mg TID@0600,1200,1800 PO 10/11/24 18:00 10/16/24 05:44 5 MG Metolazone 5 mg DAILY PO 10/12/24 10:00 10/16/24 09:45 5 MG Magnesium Oxide 400 mg BID PO 10/14/24 22:00 10/16/24 09:45 400 MG Acetaminophen/ Hydrocodone Bitart 1 tab Q6HP PRN PO 10/15/24 10:30 10/16/24 11:44 1 TAB Laboratory Results Laboratory Tests 10/10/24 05:50 10/16/24 05:21 Chemistry Test 10/16/24 05:21 Calcium Level 9.8 mg/dL (8.7-10.4) Magnesium Level 2.0 mg/dL (1.6-2.6) Urinalysis Test 10/09/24 13:07 Urine Color Light-yellow (Yellow) Urine Clarity Clear (Clear) Urine pH 5.5 (5.0-9.0) Urine Specific [place] 1.008 (1.001-1.035) Urine Protein Negative (Negative) Urine Ketones Negative (Negative) Urine Blood Negative /uL (Negative) Urine Nitrite Negative (Negative) Urine Bilirubin Negative (Negative) Urine Urobilinogen Normal mg/dL (Negative) Urine Leukocyte Esterase Negative /uL (Negative) Urine RBC None seen /hpf (0 - 3) Urine Microscopic WBC /HPF (0-3) Urine Squamous Epithelial Cells None seen /hpf (<5) Urine Bacteria None seen /hpf (None Seen) Urine Hyaline Casts Few /lpf (0 - 2) Urine Glucose Normal mg/dL (Normal) Blood Gas Results Test 10/15/24 19:00 Arterial Blood pH 7.519 (7.350-7.450) FiO2 % 21.0 Microbiology Microbiology Date/Time Source Procedure Growth Status 10/10/24 02:00 Nose MRSA Screen - Final Complete Assessment/Plan Assessment/Plan Acute on chronic CHF exacerbation with low EF Cardiomyopathy HFrEF, 15% Cardiomegaly JERRELL due to VMN Morbid obesity Acute hypoxic respiratory failure HTN History of peptic ulcer disease fluid overload/edema scrotal edema PLAN: Continue Lasix IV and metolazone DC Lisinopril due to hypotension and JERRELL Continue Midodrine Nephrology on consult Thiamine and folic acid Monitor closely Full code Advanced directives discussed x 16 minutes 10/13/2024: Hypomagnesemia: Replace Hypokalemia: Replace JERRELL: Monitor Heart failure: Continue Lasix and metolazone Continue midodrine Lisinopril was discontinued Monitor closely Replace electrolytes as needed 10/14/24: Hypokalemia: replace Hypomagnesemia: Replace Lasix Metolazone Midodrine 10/15/2024: Hypokalemia and hypomagnesemia: Replace Generalized edema: Continue Lasix and metolazone Monitor closely The rest of the management will depend on the hospital course Complains of pain in the feet and legs: Increase [place] to 10 mg 10/16/2024: Hypokalemia: Replace potassium, give 60 mEq with lunch and another 60 mEq p.o. with dinner Continue IV Lasix and metolazone Check the electrolytes again in the morning Plan discussed with: Patient My Orders Orders - JARED PORRAS MD Procedure Category Date Status Time Potassium Er Tablet PHA 10/16/24 In Process (Klor-Con Tablet) 18:00 Date of Service: Oct 16, 2024 Billing Provider: JARED PORRAS MD Common Visit Codes: [id number] INP/OBS CARE(HIGH) JARED PORRAS MD Oct 16, 2024 15:20
--- NOTE | 2024-10-16 22:46 | DVHPN2 ---
Progress Note - Dictate Date Seen: Oct 16, 2024 Has the PT tested + for MRSA If YES, has PT been informed?: No Medical Necessity Reason Pt with a Central, PICC or Fol: No Subjective [facility] Patient seen and examined at bedside. Breathing comfortably on room air. Overnight events reviewed. vital signs Vital Sign Date Time Temp Pulse Resp B/P (MAP) Pulse Ox O2 Delivery O2 Flow Rate FiO2 10/16/24 21:10 114/63 10/16/24 21:00 98.3 97 15 95 98.3 10/16/24 20:00 Room Air* 0 21 Total Intake and Output 10/15/24 10/15/24 10/16/24 15:00 23:00 07:00 Intake Total 100 ml 500 ml 500 ml Output Total 3500 ml Balance 100 ml -3000 ml 500 ml medications Current Medications Medications Dose Ordered Sig/Nikita Route Start Time Stop Time Status Last Admin Dose Admin Ondansetron HCl 4 mg Q4HP PRN IV 10/09/24 08:00 10/12/24 03:14 4 MG Enoxaparin Sodium 40 mg DAILY SC 10/09/24 10:00 10/16/24 09:45 40 MG Acetaminophen 650 mg Q6HP PRN PO 10/09/24 08:00 10/10/24 01:58 650 MG Nitroglycerin 0.4 mg Q5MINP PRN SL 10/09/24 08:00 Morphine Sulfate 2 mg Q30M PRN IV 10/09/24 08:00 UNV Pantoprazole Sodium 40 mg BID PO 10/09/24 10:00 10/16/24 21:10 40 MG Sucralfate 1 gm QID PO 10/09/24 12:00 10/16/24 21:10 1 GM Thiamine HCl 100 mg DAILY PO 10/09/24 10:00 10/16/24 09:45 100 MG Patient Own Medication 1 tab BID PO 10/09/24 10:00 UNV Patient Own Medication 1 mg DAILY PO 10/09/24 10:00 UNV Morphine Sulfate 2 mg Q30M PRN IV 10/09/24 08:30 Folic Acid 1 mg DAILY PO 10/09/24 10:00 10/16/24 09:45 1 MG Furosemide 80 mg TID IV 10/10/24 12:45 10/16/24 21:10 80 MG Midodrine 5 mg TID@0600,1200,1800 PO 10/11/24 18:00 10/16/24 05:44 5 MG Metolazone 5 mg DAILY PO 10/12/24 10:00 10/16/24 09:45 5 MG Magnesium Oxide 400 mg BID PO 10/14/24 22:00 10/16/24 21:10 400 MG Acetaminophen/ Hydrocodone Bitart 1 tab Q6HP PRN PO 10/15/24 10:30 10/16/24 18:06 1 TAB objective Gen.: Patient lying in bed in no apparent distress. Breathing on room air. Head: Normocephalic, atraumatic. Eyes: EOMI/PERRLA. Ears: Normal hearing. Normal anatomy. Neck/trachea: Trachea midline, supple. Nose: Normal external anatomy. Mouth: Moist mucous membranes. Chest: Decreased air entry bilaterally. No wheezing or rhonchi. Cardiovascular: Positive S1, positive S2. Regular rate and rhythm. Abdomen: Positive bowel sounds in all 4 quadrants. Soft, non-tender, non- distended. : Deferred. Rectal: Deferred. Skin: Warm, dry. Intact. Extremities: 2+ radial pulses bilaterally. No lower extremity edema. Neuro: Awake, alert, oriented x3. No gross motor or sensory deficits. Cranial nerves II through XII intact. Gait not assessed laboratory and microbiology Laboratory Tests 10/16/24 05:21 10/10/24 05:50 Test 10/16/24 05:21 Range/Units Serum Glucose 90 74-106 mg/dL Assessment/Plan Impression: Acute hypoxic respiratory failure Chronic hypercarbic respiratory failure Acute on chronic CHF exacerbation, systolic EF 15% Pulmonary hypertension, WHO Class II 2/2 mitral regurgitation, RVSP of 40 mmHg Morbid obesity, BMI 49.6 Acute kidney injury Hx of peptic ulcer disease Snoring Events: Breathing on room air Supplemental oxygen PRN ABG reviewed Hypercarbia possible due to ROSIE/OHS vs. contraction alkalosis from diuresis Chronic hypercarbic respiratory failure - PaCO2 of 51.4 mmHg Patient will require outpatient sleep study for likely ROSIE. Continue diuresis with Lasix TID + metolazone Monitor renal function Monitor electrolytes. Supplement as necessary Potassium supplementation Monitor ins and outs. Monitor hemoglobin Continue Protonix BID + sucralfate Lovenox for DVT prophylaxis Labs and imaging reviewed. Rest of plan as noted below. Plan: Supplemental oxygen PRN Titrate to keep O2 sats above 92%. CXR showed findings c/w cardiomegaly Echo reviewed; shows RVSP of 40 mmHg, EF 15%. Moderate to severe mitral regurgitation Cardiology recs appreciated. Diuresis with Lasix TID + metolazone Monitor renal function Monitor electrolytes. Supplement as necessary. Monitor ins and outs. On Protonix BID for hx of peptic ulcer disease Sucralfate Monitor hemoglobin. Recommend outpatient sleep study d/t snoring, multiple risk factors for ROSIE; STOP-BANG score of >5. Diet and lifestyle modifications for weight reduction Morbid obesity - complicates all care GI prophylaxis - Protonix BID DVT prophylaxis - Lovenox Prognosis: Guarded given patient's multiple co-morbidities. Rest of plan per hospitalist and other consultants. Thank you Dr. Singletary, for allowing me to participate in this patient's care. Further recommendations will depend on the patient's clinical course. Please do not hesitate to contact me if you have any questions or concerns. This medical document was created using an electronic medical record system with [employer] dictation system. Although these documentations are being carefully reviewed, there may still be some phonetic and typographical changes. The errors are purely typographical, due to imperfection on the software program, and do not reflect any compromise in the patient's medical care. Dietary Evaluation Review Recommendations by RD: Decrease Calorie Intake Comments: 1) Continue current plan of care 2) Refer CDE for weight management on DC Expected Outcomes/Goals: To maintain weight Fu 3-5 days Plan discussed with: Patient, Other (RIGO Sánchez) RAJAN OCONNELL MD Oct 16, 2024 22:46
[2024-10-17] VITALS (8 sets, daily range): BP systolic 101–136; BP diastolic 64–87; PULSE 86–110; RESP 13–20; TEMP 97.6–98.7; O2SAT 93–100
[2024-10-17] MEDS: DOCUSATE SOD 100 MG CAP PO ONE (05:50)
[2024-10-17 06:04] LABS: Calcium 10.3 mg/dL (8.7-10.4)
[2024-10-17 06:09] LABS: BUN/Creatinine Ratio 16.1 (10.0-20.0); Blood Urea Nitrogen 20 mg/dL (9-23)
[2024-10-17 06:15] LABS: Anion Gap 10.99999 (5-15); Chloride 82 mmol/L (98-107); Glucose 107 mg/dL (74-106); Sodium 133 mmol/L (136-145)
[2024-10-17 06:16] LABS: Carbon Dioxide > 40 mmol/L (20-31); Potassium 2.5 mmol/L (3.5-5.1)
[2024-10-17] MEDS: POTASSIUM CHL 20 Meq TABLET PO ONE (08:11)
[2024-10-17] MEDS: metOLazone 5 MG TAB PO SCH (10:00)
--- NOTE | 2024-10-17 13:18 | DVHPN2 ---
Subjective Potassium still low at 2.5 Edema is much better Reviewed: Care Plan, H&P, Medications, Previous Orders, Radiology Changes from previous H/P or p: Changes General: Per HPI Cardiovascular: Edema Respiratory: Shortness of breath Musculoskeletal: foot pain Objective Vitals Vital Signs Date Time Temp Pulse Resp B/P (MAP) Pulse Ox O2 Delivery O2 Flow Rate FiO2 10/17/24 12:52 98.6 95 16 108/71 (83) 98 98.6 10/17/24 08:00 Room Air* 0 21 Intake/Output Intake and Output 10/17/24 07:00 Intake Total 900 ml Balance 900 ml Intake Oral 900 ml # Voids 22 # Bowel Movements 1 General Appearance: Alert, Oriented X3, Cooperative, No acute distress Lungs: Clear to auscultation, Normal air movement Cardiovascular: Regular rate, Normal S1, Normal S2 Abdomen: Normal bowel sounds, Soft, No tenderness Extremities: Other (2+ edema B legs) Medications Current Medications Medications Dose Ordered Sig/Nikita Route Start Time Stop Time Status Last Admin Dose Admin Ondansetron HCl 4 mg Q4HP PRN IV 10/09/24 08:00 10/12/24 03:14 4 MG Enoxaparin Sodium 40 mg DAILY SC 10/09/24 10:00 10/17/24 09:58 40 MG Acetaminophen 650 mg Q6HP PRN PO 10/09/24 08:00 10/10/24 01:58 650 MG Nitroglycerin 0.4 mg Q5MINP PRN SL 10/09/24 08:00 Morphine Sulfate 2 mg Q30M PRN IV 10/09/24 08:00 UNV Pantoprazole Sodium 40 mg BID PO 10/09/24 10:00 10/17/24 09:59 40 MG Sucralfate 1 gm QID PO 10/09/24 12:00 10/17/24 11:52 1 GM Thiamine HCl 100 mg DAILY PO 10/09/24 10:00 10/17/24 09:58 100 MG Patient Own Medication 1 tab BID PO 10/09/24 10:00 UNV Patient Own Medication 1 mg DAILY PO 10/09/24 10:00 UNV Morphine Sulfate 2 mg Q30M PRN IV 10/09/24 08:30 Folic Acid 1 mg DAILY PO 10/09/24 10:00 10/17/24 09:59 1 MG Midodrine 5 mg TID@0600,1200,1800 PO 10/11/24 18:00 10/17/24 11:52 5 MG Magnesium Oxide 400 mg BID PO 10/14/24 22:00 10/17/24 09:58 400 MG Acetaminophen/ Hydrocodone Bitart 1 tab Q6HP PRN PO 10/15/24 10:30 10/17/24 07:05 1 TAB Docusate Sodium 100 mg BIDPRN PRN PO 10/17/24 02:30 Bumetanide 1 mg TID PO 10/17/24 14:00 Potassium Chloride 60 meq TID PO 10/17/24 14:00 Metolazone 2.5 mg DAILY PO 10/17/24 10:00 Laboratory Results Laboratory Tests 10/10/24 05:50 10/17/24 05:16 Chemistry Test 10/17/24 05:16 Calcium Level 10.3 mg/dL (8.7-10.4) Magnesium Level 2.0 mg/dL (1.6-2.6) Urinalysis Test 10/09/24 13:07 Urine Color Light-yellow (Yellow) Urine Clarity Clear (Clear) Urine pH 5.5 (5.0-9.0) Urine Specific [place] 1.008 (1.001-1.035) Urine Protein Negative (Negative) Urine Ketones Negative (Negative) Urine Blood Negative /uL (Negative) Urine Nitrite Negative (Negative) Urine Bilirubin Negative (Negative) Urine Urobilinogen Normal mg/dL (Negative) Urine Leukocyte Esterase Negative /uL (Negative) Urine RBC None seen /hpf (0 - 3) Urine Microscopic WBC /HPF (0-3) Urine Squamous Epithelial Cells None seen /hpf (<5) Urine Bacteria None seen /hpf (None Seen) Urine Hyaline Casts Few /lpf (0 - 2) Urine Glucose Normal mg/dL (Normal) Microbiology Microbiology Date/Time Source Procedure Growth Status 10/10/24 02:00 Nose MRSA Screen - Final Complete Assessment/Plan Assessment/Plan Acute on chronic CHF exacerbation with low EF Cardiomyopathy HFrEF, 15% Cardiomegaly JERRELL due to VMN Morbid obesity Acute hypoxic respiratory failure HTN History of peptic ulcer disease fluid overload/edema scrotal edema PLAN: Continue Lasix IV and metolazone DC Lisinopril due to hypotension and JERRELL Continue Midodrine Nephrology on consult Thiamine and folic acid Monitor closely Full code Advanced directives discussed x 16 minutes 10/13/2024: Hypomagnesemia: Replace Hypokalemia: Replace JERRELL: Monitor Heart failure: Continue Lasix and metolazone Continue midodrine Lisinopril was discontinued Monitor closely Replace electrolytes as needed 10/14/24: Hypokalemia: replace Hypomagnesemia: Replace Lasix Metolazone Midodrine 10/15/2024: Hypokalemia and hypomagnesemia: Replace Generalized edema: Continue Lasix and metolazone Monitor closely The rest of the management will depend on the hospital course Complains of pain in the feet and legs: Increase [place] to 10 mg 10/16/2024: Hypokalemia: Replace potassium, give 60 mEq with lunch and another 60 mEq p.o. with dinner Continue IV Lasix and metolazone Check the electrolytes again in the morning 10/17/2024: Hypokalemia: Continue to replace potassium p.o. aggressively Discontinue IV Lasix Give Bumex 1 mg 3 times a day p.o. Metolazone 2.5 mg daily Monitor closely in the hospital 1 more day Plan discussed with: Patient My Orders Orders - JARED PORRAS MD Procedure Category Date Status Time Bumetanide Tablet PHA 10/17/24 In Process (Bumex Tablet) 14:00 Potassium Er Tablet PHA 10/17/24 In Process (Klor-Con Tablet) 14:00 Metolazone (Zaroxolyn) PHA 10/17/24 In Process 10:00 Basic Metabolic Panel LAB 10/18/24 Verified 04:00 Magnesium LAB 10/18/24 Verified 04:00 Date of Service: Oct 17, 2024 Billing Provider: JARED PORRAS MD Common Visit Codes: [id number] INP/OBS CARE(HIGH) JARED PORRAS MD Oct 17, 2024 13:18
[2024-10-17] MEDS: BUMETANIDE 1 MG TAB PO SCH (14:06)
[2024-10-17] MEDS: POTASSIUM CHL 20 Meq TABLET PO SCH (14:07)
[2024-10-17] MEDS: DOCUSATE SOD 100 MG CAP PO PRN (14:13)
[2024-10-17] MEDS: LACTULOSE 20Gm/30ML SOLN PO ONE (15:17)
--- NOTE | 2024-10-17 18:05 | DVHPN2 ---
Progress Note - Dictate Date Seen: Oct 17, 2024 Has the PT tested + for MRSA If YES, has PT been informed?: No Medical Necessity Reason Pt with a Central, PICC or Fol: No Subjective [facility] Patient seen and examined at bedside. Breathing comfortably on room air. Overnight events reviewed. vital signs Vital Sign Date Time Temp Pulse Resp B/P (MAP) Pulse Ox O2 Delivery O2 Flow Rate FiO2 10/17/24 16:35 98.7 99 16 136/82 (100) 99 98.7 10/17/24 08:00 Room Air* 0 21 Total Intake and Output 10/16/24 10/16/24 10/17/24 15:00 23:00 07:00 Intake Total 500 ml 400 ml Balance 500 ml 400 ml medications Current Medications Medications Dose Ordered Sig/Nikita Route Start Time Stop Time Status Last Admin Dose Admin Ondansetron HCl 4 mg Q4HP PRN IV 10/09/24 08:00 10/12/24 03:14 4 MG Enoxaparin Sodium 40 mg DAILY SC 10/09/24 10:00 10/17/24 09:58 40 MG Acetaminophen 650 mg Q6HP PRN PO 10/09/24 08:00 10/10/24 01:58 650 MG Nitroglycerin 0.4 mg Q5MINP PRN SL 10/09/24 08:00 Morphine Sulfate 2 mg Q30M PRN IV 10/09/24 08:00 UNV Pantoprazole Sodium 40 mg BID PO 10/09/24 10:00 10/17/24 09:59 40 MG Sucralfate 1 gm QID PO 10/09/24 12:00 10/17/24 17:49 1 GM Thiamine HCl 100 mg DAILY PO 10/09/24 10:00 10/17/24 09:58 100 MG Patient Own Medication 1 tab BID PO 10/09/24 10:00 UNV Patient Own Medication 1 mg DAILY PO 10/09/24 10:00 UNV Morphine Sulfate 2 mg Q30M PRN IV 10/09/24 08:30 Folic Acid 1 mg DAILY PO 10/09/24 10:00 10/17/24 09:59 1 MG Midodrine 5 mg TID@0600,1200,1800 PO 10/11/24 18:00 10/17/24 17:49 5 MG Magnesium Oxide 400 mg BID PO 10/14/24 22:00 10/17/24 09:58 400 MG Acetaminophen/ Hydrocodone Bitart 1 tab Q6HP PRN PO 10/15/24 10:30 10/17/24 14:13 1 TAB Docusate Sodium 100 mg BIDPRN PRN PO 10/17/24 02:30 10/17/24 14:13 100 MG Bumetanide 1 mg TID PO 10/17/24 14:00 10/17/24 14:06 1 MG Potassium Chloride 60 meq TID PO 10/17/24 14:00 10/17/24 14:07 60 MEQ Metolazone 2.5 mg DAILY PO 10/17/24 10:00 Polyethylene Glycol 17 gm DAILY PO 10/18/24 10:00 objective Gen.: Patient lying in bed in no apparent distress. Breathing on room air. Head: Normocephalic, atraumatic. Eyes: EOMI/PERRLA. Ears: Normal hearing. Normal anatomy. Neck/trachea: Trachea midline, supple. Nose: Normal external anatomy. Mouth: Moist mucous membranes. Chest: Decreased air entry bilaterally. No wheezing or rhonchi. Cardiovascular: Positive S1, positive S2. Regular rate and rhythm. Abdomen: Positive bowel sounds in all 4 quadrants. Soft, non-tender, non- distended. : Deferred. Rectal: Deferred. Skin: Warm, dry. Intact. Extremities: 2+ radial pulses bilaterally. No lower extremity edema. Neuro: Awake, alert, oriented x3. No gross motor or sensory deficits. Cranial nerves II through XII intact. Gait not assessed laboratory and microbiology Laboratory Tests 10/17/24 05:16 10/10/24 05:50 Test 10/17/24 05:16 Range/Units Serum Glucose 107 H 74-106 mg/dL Assessment/Plan Impression: Acute hypoxic respiratory failure Chronic hypercarbic respiratory failure (PaCO2 of 51.4 mmHg) Acute on chronic CHF exacerbation, systolic EF 15% Pulmonary hypertension, WHO Class II 2/2 mitral regurgitation, RVSP of 40 mmHg Morbid obesity, BMI 49.6 Acute kidney injury Hx of peptic ulcer disease Snoring Events: Breathing on room air Supplemental oxygen PRN Patient will require outpatient sleep study for likely ROSIE. Continue diuresis with Bumex Monitor renal function Monitor electrolytes. Supplement as necessary K of 2.5 - Potassium supplementation Monitor ins and outs. Monitor hemoglobin Continue Protonix BID + sucralfate Lovenox for DVT prophylaxis Labs and imaging reviewed. Rest of plan as noted below. Plan: Supplemental oxygen PRN Titrate to keep O2 sats above 92%. CXR showed findings c/w cardiomegaly Echo reviewed; shows RVSP of 40 mmHg, EF 15%. Moderate to severe mitral regurgitation Cardiology recs appreciated. Diuresis with Lasix TID + metolazone Monitor renal function Monitor electrolytes. Supplement as necessary. Monitor ins and outs. On Protonix BID for hx of peptic ulcer disease Sucralfate Monitor hemoglobin. Recommend outpatient sleep study d/t snoring, multiple risk factors for ROSIE; STOP-BANG score of >5. Diet and lifestyle modifications for weight reduction Morbid obesity - complicates all care GI prophylaxis - Protonix BID DVT prophylaxis - Lovenox Prognosis: Guarded given patient's multiple co-morbidities. Rest of plan per hospitalist and other consultants. Thank you Dr. Singletary, for allowing me to participate in this patient's care. Further recommendations will depend on the patient's clinical course. Please do not hesitate to contact me if you have any questions or concerns. This medical document was created using an electronic medical record system with [employer] dictation system. Although these documentations are being carefully reviewed, there may still be some phonetic and typographical changes. The errors are purely typographical, due to imperfection on the software program, and do not reflect any compromise in the patient's medical care. Dietary Evaluation Review Recommendations by RD: Decrease Calorie Intake Comments: 1) Continue current plan of care 2) Refer CDE for weight management on DC Expected Outcomes/Goals: To maintain weight Fu 3-5 days Plan discussed with: Patient, Other (RIGO Bright) RAJAN OCONNELL MD Oct 17, 2024 18:05
[2024-10-18 01:00] VITALS: BP_SYST 118; BP_SYST 124; BP_DIAS 76; BP_DIAS 89; PULSE 102; PULSE 115; RESP 19; TEMP 98.1; TEMP 98.2; O2SAT 92; O2SAT 99
[2024-10-18 05:00] VITALS: BP_SYST 0; BP_SYST 119; BP_DIAS 66; PULSE 86; RESP 19; TEMP 98.6; O2SAT 91
[2024-10-18 06:06] LABS: BUN/Creatinine Ratio 16.3 (10.0-20.0); Blood Urea Nitrogen 20 mg/dL (9-23); Glucose 95 mg/dL (74-106)
[2024-10-18 06:07] LABS: Magnesium 2.1 mg/dL (1.6-2.6)
[2024-10-18 06:22] LABS: Chloride 83 mmol/L (98-107); Potassium 2.6 mmol/L (3.5-5.1); Sodium 134 mmol/L (136-145)
[2024-10-18 06:24] LABS: Anion Gap 10.99999 (5-15); Carbon Dioxide > 40 mmol/L (20-31)
[2024-10-18 08:00] VITALS: PULSE 100; PULSE 87; RESP 17; O2SAT 95
[2024-10-18 09:43] VITALS: BP 113/86; PULSE 87; RESP 17; TEMP 98.3; O2SAT 95
[2024-10-18] MEDS: POLYETHYLENE GLYCOL 17 GM PWDR PO SCH (09:51)
[2024-10-18] MEDS: POTASSIUM CHL 20 Meq TABLET PO ONE ×3 (10:05→16:55)
[2024-10-18 12:51] VITALS: BP 109/69; PULSE 96; RESP 17; TEMP 98.4; O2SAT 95
[2024-10-18 14:48] LABS: Sodium 136 mmol/L (136-145)
[2024-10-18 14:50] LABS: Calcium 10.1 mg/dL (8.7-10.4)
[2024-10-18 15:03] LABS: Anion Gap 7.99999 (5-15); Blood Urea Nitrogen 24 mg/dL (9-23); Chloride 88 mmol/L (98-107); Glucose 108 mg/dL (74-106); Potassium 3.3 mmol/L (3.5-5.1)
[2024-10-18 15:14] LABS: Carbon Dioxide > 40 mmol/L (20-31)
[2024-10-18 16:53] VITALS: BP 126/91; PULSE 92; RESP 16; TEMP 97.8; O2SAT 95
[2024-10-18] MEDS ORDERED: METO2.5T PO (17:39)
--- NOTE | 2024-10-18 17:41 | DVHDS2 ---
Discharge Summary Date of Admission October 09, 2024 at 10:47 Date of Discharge: Oct 18, 2024 Labs/Diagnostic Data: Laboratory Results Test 10/18/24 14:13 10/18/24 05:09 10/15/24 19:00 10/14/24 04:55 Sodium Level 136 mmol/L (136-145) Potassium Level 3.3 mmol/L (3.5-5.1) Chloride Level 88 mmol/L (98-107) Carbon Dioxide Level > 40 mmol/L (20-31) Anion Gap 7.91853 (5-15) Blood Urea Nitrogen 24 mg/dL (9-23) Creatinine 1.20 mg/dL (0.700-1.30) Glomerular Filtration Rate Calc 80 mL/min (>90) BUN/Creatinine Ratio 20.0 (10.0-20.0) Serum Glucose 108 mg/dL (74-106) Calcium Level 10.1 mg/dL (8.7-10.4) Magnesium Level 2.1 mg/dL (1.6-2.6) Blood Gas Specimen Type Arterial Blood Gas Sample Site Right radial Blood Gas Patient Temperature 37.0 Arterial Blood Date Drawn [id number] Arterial Blood pH 7.519 (7.350-7.450) Arterial Blood Partial Pressure CO2 51.4 mmHg (35.0-48.0) Arterial Blood Partial Pressure O2 57.8 mmHg (83.0-108.0) Arterial Blood HCO3 40.9 mmol/L (21.0-28.0) Arterial Blood Oxygen Saturation 88.1 % (94.0-98.0) Arterial Blood Base Excess 15.7 mmol/L (-2.0-3.0) Arterial Blood Oxyhemoglobin 86.3 % (94.0-98.0) Arterial Blood Carboxyhemoglobin 1.4 % (0.5-1.5) Arterial Blood Methemoglobin 0.6 % (0.0-1.5) Bravo Test Yes Blood Gas Total Hemoglobin 13.70 g/dL (13.5-17.5) Blood Gas Modality Room air FiO2 % 21.0 Total Bilirubin 1.5 mg/dL (0.2-1.0) Aspartate Amino Transferase (AST) 20 U/L (13-40) Alanine Aminotransferase (ALT) 11 U/L (7-40) Alkaline Phosphatase 98 U/L (46-116) Total Protein 7.3 g/dL (5.7-8.2) Albumin 4.0 g/dL (3.2-4.8) Test 10/13/24 06:19 10/10/24 05:50 10/09/24 13:07 10/09/24 08:52 Phosphorus Level 4.4 mg/dL (2.4-5.1) White Blood Count 6.8 10^3/uL (4.4-10.8) Red Blood Count 3.84 10^6/uL (4.5-5.90) Hemoglobin 12.0 g/dL (13.5-17.5) Hematocrit 36.2 % (41.0-53.0) Mean Corpuscular Volume 94.4 fL (80.0-100.0) Mean Corpuscular Hemoglobin 31.4 pg (28.0-32.0) Mean Corpuscular Hemoglobin Concent 33.2 g/dL (32.0-36.0) Red Cell Distribution Width 19.3 % (11.8-14.3) Platelet Count 172 10^3/uL (140-450) Mean Platelet Volume 9.3 fL (6.9-10.8) Neutrophils (%) (Auto) 68.4 % (37.0-80.0) Lymphocytes (%) (Auto) 22.3 % (10.0-50.0) Monocytes (%) (Auto) 7.8 % (0.0-12.0) Eosinophils (%) (Auto) 0.6 % (0.0-7.0) Basophils (%) (Auto) 0.9 % (0.0-2.0) Neutrophils # (Auto) 4.6 10 ^3/uL (1.6-8.6) Lymphocytes # (Auto) 1.5 10 ^3/uL (0.4-5.4) Monocytes # (Auto) 0.5 10 ^3/uL (0-1.3) Eosinophils # (Auto) 0 10 ^3/uL (0-0.8) Basophils # (Auto) 0.1 10 ^3/uL (0-0.2) Nucleated Red Blood Cells 0.3 % Urine Color Light-yellow (Yellow) Urine Clarity Clear (Clear) Urine pH 5.5 (5.0-9.0) Urine Specific [place] 1.008 (1.001-1.035) Urine Protein Negative (Negative) Urine Ketones Negative (Negative) Urine Blood Negative /uL (Negative) Urine Nitrite Negative (Negative) Urine Bilirubin Negative (Negative) Urine Urobilinogen Normal mg/dL (Negative) Urine Leukocyte Esterase Negative /uL (Negative) Urine RBC None seen /hpf (0 - 3) Urine Microscopic WBC /HPF (0-3) Urine Squamous Epithelial Cells None seen /hpf (<5) Urine Bacteria None seen /hpf (None Seen) Urine Hyaline Casts Few /lpf (0 - 2) Urine Glucose Normal mg/dL (Normal) Urine Opiates Screen Neg (NEGATIVE) Urine Fentanyl Screen Neg (NEGATIVE) Urine Barbiturates Screen Neg (NEGATIVE) Urine Phencyclidine Screen Neg (NEGATIVE) Urine Amphetamines Screen Neg (NEGATIVE) Urine Benzodiazepines Screen Neg (NEGATIVE) Urine Cocaine Screen Neg (NEGATIVE) Urine Cannabinoids Screen Neg (NEGATIVE) Troponin I High Sensitivity 11 ng/L (</=54) Test 10/09/24 06:05 B-Type Natriuretic Peptide 995.72 pg/mL (0-100) Other Laboratory Tests 10/18/24 14:13 10/10/24 05:50 Brief Hx & Hospital Course: Final diagnoses: Acute on chronic CHF exacerbation with low EF Cardiomyopathy HFrEF, 15% Cardiomegaly JERRELL due to VMN Morbid obesity Acute hypoxic respiratory failure HTN History of peptic ulcer disease fluid overload/edema scrotal edema Hypokalemia 39 year old male with cardiomyopathy with low EF, came with fluid overload He was diuresed with IV lasix and Metolazone His K+ was low, it was replaced aggressively K+ is better today, he was given more potassium He is ready to go home Continue Bumex 1 mg tid at home Continue KCL Add Metolazone 2.5 mg qd F/U with Dr. Jesús May as scheduled next week Condition at Discharge: Stable Final Diagnosis/Problems List Acute on chronic CHF exacerbation with low EF Cardiomyopathy HFrEF, 15% Cardiomegaly JERRELL due to VMN Morbid obesity Acute hypoxic respiratory failure HTN History of peptic ulcer disease fluid overload/edema scrotal edema Discharge Disposition: Home SNF Discharge Will this Physician continue t: No Discharge Instruct/Medications Diet: Cardiac 2g Na,low cholest Activity: No Restrictions, As Tolerated Follow Up/Referral: Dr. S. May next week Medications: Same home meds including Bumex 1 mg tid and KCL Discharge Statement: "Patient was advised to return to the ER or call 911 if any headaches, dizziness, shortness of breath, chest pain, abdominal pain, bleeding, fevers, or worsening of medical condition. Patient was counseled about treatment plan, medications, possible side effects, patientverbalized understanding. All questions were answered to the best of my ability. This discharge took greater then 30 minutes in planning, reviewing documentation, counseling the patient, and discussing with other team members." ASSESSMENT ASSESSMENT Assessment Acute on chronic CHF exacerbation with low EF Cardiomyopathy HFrEF, 15% Cardiomegaly JERRELL due to VMN Morbid obesity Acute hypoxic respiratory failure HTN History of peptic ulcer disease fluid overload/edema scrotal edema Date of Service: Oct 18, 2024 Billing Provider: JARED PORRAS MD Common Visit Codes: 98958-UAW/OBS DISCH DAY >30min JARED PORRAS MD Oct 18, 2024 17:41
--- NOTE | 2024-10-18 20:36 | DVHPN2 ---
Progress Note - Dictate Date Seen: Oct 18, 2024 Has the PT tested + for MRSA If YES, has PT been informed?: No Medical Necessity Reason Pt with a Central, PICC or Fol: No Subjective [facility] Patient seen and examined at bedside. Breathing comfortably on room air. Overnight events reviewed. vital signs Vital Sign Date Time Temp Pulse Resp B/P (MAP) Pulse Ox O2 Delivery O2 Flow Rate FiO2 10/18/24 16:53 97.8 92 16 126/91 (103) 95 97.8 10/18/24 08:00 Room Air* 0 21 Total Intake and Output 10/17/24 10/17/24 10/18/24 15:00 23:00 07:00 Intake Total 645 ml 560 ml Output Total 2000 ml 1000 ml Balance -1355 ml -440 ml medications Current Medications Medications Dose Ordered Sig/Nikita Route Start Time Stop Time Status Last Admin Dose Admin Morphine Sulfate 2 mg Q30M PRN IV 10/09/24 08:00 UNV Patient Own Medication 1 tab BID PO 10/09/24 10:00 UNV Patient Own Medication 1 mg DAILY PO 10/09/24 10:00 UNV objective Gen.: Patient lying in bed in no apparent distress. Breathing on room air. Head: Normocephalic, atraumatic. Eyes: EOMI/PERRLA. Ears: Normal hearing. Normal anatomy. Neck/trachea: Trachea midline, supple. Nose: Normal external anatomy. Mouth: Moist mucous membranes. Chest: Decreased air entry bilaterally. No wheezing or rhonchi. Cardiovascular: Positive S1, positive S2. Regular rate and rhythm. Abdomen: Positive bowel sounds in all 4 quadrants. Soft, non-tender, non- distended. : Deferred. Rectal: Deferred. Skin: Warm, dry. Intact. Extremities: 2+ radial pulses bilaterally. No lower extremity edema. Neuro: Awake, alert, oriented x3. No gross motor or sensory deficits. Cranial nerves II through XII intact. Gait not assessed laboratory and microbiology Laboratory Tests 10/18/24 14:13 10/10/24 05:50 Test 10/18/24 14:13 Range/Units Serum Glucose 108 H 74-106 mg/dL Assessment/Plan Impression: Acute hypoxic respiratory failure Chronic hypercarbic respiratory failure (PaCO2 of 51.4 mmHg) Acute on chronic CHF exacerbation, systolic EF 15% Pulmonary hypertension, WHO Class II 2/2 mitral regurgitation, RVSP of 40 mmHg Morbid obesity, BMI 49.6 Acute kidney injury Hx of peptic ulcer disease Snoring Events: Breathing on room air Supplemental oxygen PRN Patient will require outpatient sleep study for likely ROSIE. Continue diuresis with Bumex Monitor renal function Monitor electrolytes. Supplement as necessary Potassium supplementation Magnesium supplementation Monitor ins and outs. Monitor hemoglobin Continue Protonix BID + sucralfate Pain control Avoid oversedation Lovenox for DVT prophylaxis Labs and imaging reviewed. Rest of plan as noted below. Plan: Supplemental oxygen PRN Titrate to keep O2 sats above 92%. CXR showed findings c/w cardiomegaly Echo reviewed; shows RVSP of 40 mmHg, EF 15%. Moderate to severe mitral regurgitation Cardiology recs appreciated. Diuresis with Bumex Monitor renal function Monitor electrolytes. Supplement as necessary. Monitor ins and outs. On Protonix BID for hx of peptic ulcer disease Sucralfate Monitor hemoglobin. Recommend outpatient sleep study d/t snoring, multiple risk factors for ROSIE; STOP-BANG score of >5. Diet and lifestyle modifications for weight reduction Morbid obesity - complicates all care GI prophylaxis - Protonix BID DVT prophylaxis - Lovenox Prognosis: Guarded given patient's multiple co-morbidities. Rest of plan per hospitalist and other consultants. Thank you Dr. Singletary, for allowing me to participate in this patient's care. Further recommendations will depend on the patient's clinical course. Please do not hesitate to contact me if you have any questions or concerns. This medical document was created using an electronic medical record system with [employer] dictation system. Although these documentations are being carefully reviewed, there may still be some phonetic and typographical changes. The errors are purely typographical, due to imperfection on the software program, and do not reflect any compromise in the patient's medical care. Dietary Evaluation Review Recommendations by RD: Decrease Calorie Intake Comments: 1) Continue current plan of care 2) Refer CDE for weight management on DC Expected Outcomes/Goals: To maintain weight Fu 3-5 days Plan discussed with: Patient, Other (RIGO Bright) RAJAN OCONNELL MD Oct 18, 2024 20:36
== END 2024-10-18 18:45 | disposition home or self-care (01) | DRG 291 ==
LOC: ER 04:23 → OVERFLOW 07:53 → UNDOADMIN 07:53 → TELE-WESTW 10:47 → OVERFLOW 10:47 → TELE-WESTW 22:50
PROVIDERS: ADMIT Internal Medicine Geriatric Medicine; ATTEND Internal Medicine Geriatric Medicine
DX: I11.0 Hypertensive heart disease with heart failure (principal); I50.23 Acute on chronic systolic (congestive) heart failure; J96.21 Acute and chronic respiratory failure with hypoxia; N17.0 Acute kidney failure with tubular necrosis; J96.22 Acute and chronic respiratory failure with hypercapnia; J98.11 Atelectasis; Z68.42 Body mass index [BMI] 45.0-49.9, adult; I42.9 Cardiomyopathy, unspecified; E87.6 Hypokalemia; I27.20 Pulmonary hypertension, unspecified; I34.0 Nonrheumatic mitral (valve) insufficiency; G47.33 Obstructive sleep apnea (adult) (pediatric); E66.01 Morbid (severe) obesity due to excess calories; N50.89 Other specified disorders of the male genital organs; Z79.899 Other long term (current) drug therapy; Z82.49 Family history of ischemic heart disease and other diseases of the circulatory system; Z87.11 Personal history of peptic ulcer disease; Z87.891 Personal history of nicotine dependence; Z99.81 Dependence on supplemental oxygen
CPT/HCPCS: 36415; 36600; 71045; 80048; 80053; 80307; 81001; 82805; 83735; 83880; 84100; 84132; 84484; 85025; 87081; 93005; 93970; 96374; 96375; 96376; 99291; G0378; J2405

== ENCOUNTER 2025-04-26 06:15 | Inpatient (IN) | payer BC ==
[~2025-04-26] VITALS: Ht 188 cm; Wt 173.0 kg
[~2025-04-26 06:15] MED LIST changes: +BUME1TAB3 PO; +BUME2TAB5 PO; -FURO1TAB33 PO; -FURO40TA4 PO; +METO2.5T PO; +SPIR25TA8 PO
--- NOTE | 2025-04-26 06:36 | ED.PDOC ---
Altered Mental Status HPI Comments 40 year old male with PMHx HTN, DM, CHF presents to the ED via EMS with a chief complaint of ALOC onset today. Per EMS, patient was found face down, on living room floor, experiencing multiple syncopal episodes, 911 was called. Upon EMS arrival, patient was A&O x3, experienced syncopal episodes, was hypotensive with BP 68/40, BG 144, was given IVF in route to ED. EMS observed empty vodka bottle near patient. Patient is a poor historian. Denies fevers, head injury, nausea, vomiting, diarrhea, abdominal pain, chest pain, dizziness, shortness of breath. No other symptoms or modifying factors present at this time. Time Seen by MD: 06:20 Reviewed Notes: Medications, Allergies Allergies: Coded Allergies: NO KNOWN ALLERGIES (Unverified , 06/19/22) Home Meds Active Scripts Metolazone (Metolazone) 2.5 Mg Tab, 2.5 MG PO DAILY for 30 Days, #30 TAB Prov:JARED PORRAS MD 10/18/24 Cyclobenzaprine HCl (Cyclobenzaprine Hydrochlo) 5 Mg Tab, 5 MG PO QHSP PRN for 5 Days, #5 TAB Prov:BRENDA OJEDA DO 10/06/22 Lisinopril (Lisinopril) 20 Mg Tab, 1 TAB PO DAILY, #90 TAB 3 Refills Prov:JURGEN MI MD 06/24/22 Carvedilol (Coreg) 6.25 Mg Tab, 1 TAB PO BID, #180 TAB 3 Refills Prov:JURGEN MI MD 06/24/22 Sucralfate (Sucralfate) 1 Gm Tab, 1 GM PO QID, #120 TAB Prov:JURGEN MI MD 06/24/22 Pantoprazole Sodium Sesquihydr (Pantoprazole Sodium) 40 Mg Tab, 40 MG PO BID, #60 TAB Prov:JURGEN MI MD 06/24/22 Folic Acid (Folic Acid) 1 Mg Tab, 1 MG PO DAILY, #30 TAB Prov:JURGEN MI MD 06/24/22 Thiamine Hcl (Thiamine Hcl) 100 Mg Tab, 1 TAB PO DAILY, #30 TAB Prov:JURGEN MI MD 06/24/22 Reported Medications Bumetanide (Bumetanide) 1 Mg Tab, 1 TAB PO TID 10/09/24 Sacubitril-Valsartan (Entresto 24-26 mg) 1 Tab Tab, 1 TAB PO BID, TAB 10/06/22 Potassium Chloride (POTASSIUM CHLORIDE CR) 10 Meq Tb, 1 TAB PO DAILY, #30 TAB 5 Refills 10/06/22 Information Source: Patient, Emergency Med Personnel Mode of Arrival: EMS Severity: Moderate Timing: Hours Duration: Since onset Prehospital treatment: IVF Quality: Decreased Alertness, Change in Behavior Recent: Other (ETOH) History of: Diabetes Past Medical History PAST MEDICAL HISTORY: CHF, DM, HTN Surgical History: Denies all surgeries Family History Family History: Reviewed,noncontributory to illness Social History Smoker: Non-Smoker Alcohol: Denies ETOH Use Drugs: Denies Drug Use Lives In: Home Constitutional: denies: chills, diaphoresis, fatigue, fever, malaise, sweats, weakness, others EENTM: denies: blurred vision, double vision, ear bleeding, ear discharge, ear drainage, ear pain, ear ringing, eye pain, eye redness, hearing loss, mouth pain, mouth swelling, nasal discharge, nose bleeding, nose congestion, nose pain, photophobia, tearing, throat pain, throat swelling, voice changes, others Respiratory: denies: cough, hemoptysis, orthopnea, SOB at rest, shortness of breath, SOB with excertion, stridor, wheezing, others Cardiovascular: denies: chest pain, dizzy spells, diaphoresis, Dyspnea on exertion, edema, irregular heart beat, left arm pain, lightheadedness, palpitations, PND, syncope, others Gastrointestinal: denies: abdomen distended, abdominal pain, blood streaked bowels, constipated, diarrhea, dysphagia, difficulty swallowing, hematemesis, melena, nausea, poor appetite, poor fluid intake, rectal bleeding, rectal pain, vomiting, others Genitourinary: denies: burning, dysuria, flank pain, frequency, hematuria, incontinence, penile discharge, penile sore, pain, testicle pain, testicle swelling, urgency, others Neurological: reports: others (syncope); denies: dizziness, fainting, headache, left sided numbness, left sided weakness, numbness, paresthesia, pre-existing deficit, right sided numbness, right sided weakness, seizure, speech problems, tingling, tremors, weakness Musculoskeletal: denies: back pain, gout, joint pain, joint swelling, muscle pain, muscle stiffness, neck pain, others Integumetry: denies: bruises, change in color, change in hair/nails, dryness, laceration, lesions, lumps, rash, wounds, others Allergic/Immunocompromised: denies: Difficulty Healing, Frequent Infections, Hives, Itching, others Hematologic/Lymphatic: denies: anemia, blood clots, easy bleeding, easy bruising, swollen glands, others Endocrine: denies: excessive hunger, excessive sweating, excessive thirst, excessive urination, flushing, intolerance to cold, intolerance to heat, unexplained weight gain, unexplained weight loss, others Psychiatric: denies: anxiety, bipolar disorder, depression, hopeless, panic disorder, schizophrenia, sleepless, suicidal, others All Other Systems: Reviewed and Negative Physical Exam General Appearance: Normal HEENT: Normal ENT Inspection, Pharynx Normal, TMs Normal Neck: Full Range of Motion, Non-Tender, Normal, Normal Inspection Respiratory: Chest Non-Tender, Lungs Clear, No Accessory Muscle Use, No R espiratory Distress, Normal Breath Sounds Cardiovascular: No Edema, No JVD, No Murmur, No Gallop, Normal Peripheral Pulses, Regular Rate/Rhythm Breast Exam: Deferred Gastrointestinal: No Organomegaly, Non Tender, No Pulsatile Mass, Normal Bowel Sounds, Soft Genitalia: Deferred Pelvic: Deferred Rectal: Deferred Extremities: No calf tenderness, Normal capillary refill, Normal inspection, Normal range of motion, Non-tender, No pedal edema Musculoskeletal : Apperance: Normal Neurologic: Alert, foreign language stenographer II-XII nml as Tested, No Motor Deficits, Normal Affect, Normal Mood, No Sensory Deficits Cerebellar Function: Normal Reflexes: Normal Skin: Dry, Normal Color, Warm Lymphatic: No Adenopathy Was a procedure done? Was a procedure done?: No Differential Diagnosis (ALOC) Differential Diagnosis: Dehydration, ETOH Intoxication X-Ray, Labs, Meds, VS Vital Signs Date Time Temp Pulse Resp B/P (MAP) Pulse Ox O2 Delivery O2 Flow Rate FiO2 04/26/25 08:42 71 16 91/65 (74) 100 04/26/25 08:22 68 04/26/25 07:52 97.4 70 16 70/37 (48) 100 97.4 04/26/25 07:52 70 04/26/25 06:55 97.6 71 14 87/71 (76) 96 97.6 04/26/25 06:19 72 04/26/25 06:15 98.3 74 20 99/45 97 98.3 Lab Test 04/26/25 07:55 04/26/25 06:50 Range/Units Troponin I High Sensitivity 58 *H 61 *H </=54 ng/L White Blood Count 8.0 4.4-10.8 10^3/uL Red Blood Count 3.56 L 4.5-5.90 10^6/uL Hemoglobin 12.2 L 13.5-17.5 g/dL Hematocrit 35.9 L 41.0-53.0 % Mean Corpuscular Volume 100.9 H 80.0-100.0 fL Mean Corpuscular Hemoglobin 34.3 H 28.0-32.0 pg Mean Corpuscular Hemoglobin Concent 34.0 32.0-36.0 g/dL Red Cell Distribution Width 16.9 H 11.8-14.3 % Platelet Count 180 140-450 10^3/uL Mean Platelet Volume 9.8 6.9-10.8 fL Neutrophils (%) (Auto) 69.7 37.0-80.0 % Lymphocytes (%) (Auto) 19.0 10.0-50.0 % Monocytes (%) (Auto) 10.6 0.0-12.0 % Eosinophils (%) (Auto) 0.1 0.0-7.0 % Basophils (%) (Auto) 0.6 0.0-2.0 % Neutrophils # (Auto) 5.6 1.6-8.6 10 ^3/uL Lymphocytes # (Auto) 1.5 0.4-5.4 10 ^3/uL Monocytes # (Auto) 0.8 0-1.3 10 ^3/uL Eosinophils # (Auto) 0 0-0.8 10 ^3/uL Basophils # (Auto) 0.1 0-0.2 10 ^3/uL Nucleated Red Blood Cells 0.2 % Sodium Level 132 L 136-145 mmol/L Potassium Level 2.6 L 3.5-5.1 mmol/L Chloride Level 87 L 98-107 mmol/L Carbon Dioxide Level 32 H 20-31 mmol/L Anion Gap 13 5-15 Blood Urea Nitrogen 23 9-23 mg/dL Creatinine 1.63 H 0.700-1.30 mg/dL Glomerular Filtration Rate Calc 55 >90 mL/min BUN/Creatinine Ratio 14.1 10.0-20.0 Serum Glucose 112 H 74-106 mg/dL Calcium Level 8.1 L 8.7-10.4 mg/dL Plasma/Serum Blood Alcohol 283.2 H <10 mg/dL Current Medications Medications (Trade) Dose Ordered Sig/Nikita Route Start Time Stop Time Status Last Admin Sodium Chloride 1,000 ml @ 1,000 mls/hr Q1H ONCE IV 04/26/25 06:45 04/26/25 07:44 DC 04/26/25 06:56 Sodium Chloride 1,000 ml @ 1,000 mls/hr Q1H ONCE IV 04/26/25 07:30 04/26/25 08:29 DC 04/26/25 07:50 Potassium Chloride 100 ml @ 50 mls/hr Q2H IV 04/26/25 08:45 04/26/25 14:44 04/26/25 08:57 [place] [address] Ph: [phone] DIAGNOSTIC IMAGING Diagnostic Imaging Report : [id number] Signed PATIENT: SRI ESCOBAR ACCT: [id number] UNIT: [id number] : 1985 LOC: ER ROOM / BED: / AGE / SEX: 40 / M ADM STATUS: REG ER SERVICE 0635 ORDERING PHYSICIAN: KAMALA BRODY MD PROCEDURE(s): CXRP - CHEST PORTABLE REASON: found down ORDER NUMBER(s): [id number], ACCESSION NUMBER(s): [id number] CLINICAL INFORMATION: Found down. TECHNIQUE: Single AP portable chest radiograph was obtained. COMPARISON: XY CHEST PORTABLE on DOS: 10/09/24, XY CHEST TWO VIEWS ROUTINE on DOS: 09/24/24, XY CHEST XRAY 1 VIEW on DOS: 04/24/23 FINDINGS: Lungs: Mild perihilar interstitial opacities. Cardiac: Marked cardiomegaly. Similar in appearance compared to the prior exam. Pulmonary vasculature: Prominence of the pulmonary vasculature. Mediastinum/shara: Unremarkable. Bones: No acute osseous abnormality identified. Other: No other significant findings. IMPRESSION: Findings consistent with pulmonary vascular congestion in the appropriate clinical setting as described above. ATED BY: NEERAJ MARIE DO DICTATED DATE/TIME: 04/26/25738 SIGNED BY: NEERAJ MARIE DO SIGNED DATE/TIME: 04/26/25738 CC: Time of 1ST Reevaluation: 06:50 Reevaluation 1ST: Unchanged Patient Education/Counseling: Diagnosis, Treatment, Prognosis Family Education/Counseling: No Family Present SEPSIS Sepsis Screen Physician Orders Head Without Contrast (04/26/25 06:35) Chest Portable (04/26/25 06:35) Troponin-I Hs (04/26/25 09:35) Potassium Chl 20meq/100ml (04/26/25 08:45) Vital Signs Date Time Temp Pulse Resp B/P (MAP) Pulse Ox O2 Delivery O2 Flow Rate FiO2 04/26/25 08:42 71 16 91/65 (74) 100 04/26/25 08:22 68 04/26/25 07:52 97.4 70 16 70/37 (48) 100 97.4 04/26/25 07:52 70 04/26/25 06:55 97.6 71 14 87/71 (76) 96 97.6 04/26/25 06:19 72 04/26/25 06:15 98.3 74 20 99/45 97 98.3 Laboratory Tests Test 04/26/25 06:50 White Blood Count 8.0 10^3/uL (4.4-10.8) Medications Medications Dose Ordered Sig/Nikita Route Start Time Stop Time Status Last Admin Dose Admin Potassium Chloride 100 ml @ 50 mls/hr Q2H IV 04/26/25 08:45 04/26/25 14:44 04/26/25 08:57 Sodium Chloride 1,000 ml @ 1,000 mls/hr Q1H ONCE IV 04/26/25 06:45 04/26/25 07:44 DC 04/26/25 06:56 Sodium Chloride 1,000 ml @ 1,000 mls/hr Q1H ONCE IV 04/26/25 07:30 04/26/25 08:29 DC 04/26/25 07:50 Departure 1 Departure Time of Disposition: 09:36 (Patient with a acute metabolic encephalopathy likely secondary to alcohol intoxication patient also with a syncopal episode and patient found to be hypokalemic and hypotensive. We will replete patient's electrolytes admit patient for further workup and expert consultation) Impression: Primary Impression: Acute metabolic encephalopathy Additional Impressions: Syncope and collapse Alcohol intoxication Hypokalemia Disposition: ADMITTED INPATIENT Admit to: Tele Condition: Guarded Critical Care Note Critical Care Time?: Yes Critical care comment: Hypotension and altered mental status Authorized and Performed by: Kamala Brody MD Total critical care time: Approximately 39 minutes Due to a high probability of clinically significant, life threatening deterioration, the patient required my highest level of preparedness to intervene emergently and I personally spent this critical care time directly and personally managing the patient. This critical care time included obtaining a history; examining the patient; pulse oximetry; ordering and review of studies; arranging urgent treatment with development of a management plan; evaluation of patient's response to treatment; frequent reassessment; and, discussions with other providers. This critical care time was performed to assess and manage the high probability of imminent, life-threatening deterioration that could result in multi-organ failure. It was exclusive of separately billable procedures and treating other patients and teaching time. Please see my other sections and the rest of the note for further information on patient assessment and treatment. Stability Stability form required: No Heart Score Heart Score: Heart Score Response (Comments) Value History N/A 0 EKG N/A 0 Age N/A 0 Risk Factors N/A 0 Troponin N/A 0 Total 0 I personally scribed for KAMALA BRODY MD ([email or web address]) on 04/26/25 at 06:36. Electronically submitted by Addie Herrera ([email or web address]). I personally scribed for KAMALA BRODY MD ([email or web address]) on 04/26/25 at 08:22. Electronically submitted by Addie Herrera ([email or web address]). KAMALA BRODY MD Apr 26, 2025 06:36
--- NOTE | 2025-04-26 06:51 | ECG ---
[facility] Test Date: 2025-04-26 Test Time: 06:19:32 Pat Name: SRI ESCOBAR Department: Room: 0249T Gender: M Direct Sales Representative: IKER : 1985 Requested By: KAMALA BRODY Order Number: [id number] Reading MD: Shivam Boston Measurements Intervals [place] Rate: 72 P: -14 AL: 239 QRS: -74 QRSD: 139 T: -78 QT: 527 QTc: 577 Interpretive Statements Sinus rhythm Prolonged AL interval Nonspecific IVCD with LAD Probable anterior infarct, age indeterminate Electronically Signed On 04-29-2025 17:16:56 PST by Shivam Boston Please click the below link to view image of tracing.
[2025-04-26] MEDS: SODIUM CHLORIDE 0.9% 1,000 ML IV ONE ×2 (06:56→07:50)
[2025-04-26 07:12] LABS: Mean Corpuscular Volume 100.9 fL (80.0-100.0); Nucleated Red Blood Cells % 0.2 %
[2025-04-26 07:14] LABS: Hematocrit 35.9 % (41.0-53.0); Hemoglobin 12.2 g/dL (13.5-17.5); Mean Corpuscular Hemoglobin 34.3 pg (28.0-32.0)
[2025-04-26 07:27] LABS: Anion Gap 13 (5-15)
[2025-04-26 07:33] LABS: BUN/Creatinine Ratio 14.1 (10.0-20.0); Blood Urea Nitrogen 23 mg/dL (9-23); Calcium 8.1 mg/dL (8.7-10.4); Carbon Dioxide 32 mmol/L (20-31); Chloride 87 mmol/L (98-107); Glucose 112 mg/dL (74-106); Potassium 2.6 mmol/L (3.5-5.1); Sodium 132 mmol/L (136-145)
--- NOTE | 2025-04-26 07:42 | DVH ---
CLINICAL INFORMATION: Found down. TECHNIQUE: Single AP portable chest radiograph was obtained. COMPARISON: XY CHEST PORTABLE on DOS: 10/09/24, XY CHEST TWO VIEWS ROUTINE on DOS: 09/24/24, XY CHEST XRAY 1 VIEW on DOS: 04/24/23 FINDINGS: Lungs: Mild perihilar interstitial opacities. Cardiac: Marked cardiomegaly. Similar in appearance compared to the prior exam. Pulmonary vasculature: Prominence of the pulmonary vasculature. Mediastinum/shara: Unremarkable. Bones: No acute osseous abnormality identified. Other: No other significant findings. IMPRESSION: Findings consistent with pulmonary vascular congestion in the appropriate clinical setting as described above.
[2025-04-26 07:52] VITALS: PULSE 70
[2025-04-26] MEDS: POTASSIUM CHL 20MEQ/100ML 100 ML IV SCH (08:57)
[2025-04-26] MEDS: ONDANSETRON HCL 4 MG/2 ML VIAL IV ONE (11:04)
[2025-04-26] MEDS ORDERED: DOCUSATE SOD 100 MG CAP PO PRN (11:15)
[2025-04-26] MEDS ORDERED: ONDANSETRON HCL 4 MG/2 ML VIAL IV PRN (11:15)
[2025-04-26] MEDS ORDERED: ACETAMINOPHEN 325 MG TAB PO PRN (11:15)
--- NOTE | 2025-04-26 11:37 | DVHHP2 ---
History of Present Illness Reason for Visit: Syncopal episode History of Present Illness Ronnell Barreto is a 40-year-old male with past medical history of hypertension, and CHF, who was brought to the hospital by EMS due to having a syncopal event at home. Patient states he is a heavy daily drinker of liquor. He states it vari es from a few shots to a lot more. Last night he was drinking. He states he woke up about 0400, took his medications, then went back to bed. He woke up to go the bathroom, but apparently had a syncopal episode. The next thing he remembered was waking up on the floor and his was on the phone with EMS. Patient has a history of severe CHF, he had a mitral clip in January of 2025, and is supposed to be having an AICD placed soon. He appears to be dry, will dry gentle IV hydration. He does take Bumex at home TID. Cardiovascular: CHF, HTN, Other (Mitral clip in January 2025) Past Surgical History: Other (Mitral clip in January 2025) Smoke: No ALCOHOL: heavy (Daily) Drugs: None Lives: with Family Domestic Violence: Neg Review of Systems Constitutional: No: Fever, Chills, Sweats, Weakness, Malaise, Other Eyes: No: Pain, Vision change, Conjunctivae inflammation, Eyelid inflammation, Other, Redness ENT: No: Ear pain, Ear discharge, Nose pain, Nose discharge, Nose congestion, Mouth pain, Mouth swelling, Throat pain, Throat swelling, Other Respiratory: No: Cough, Dry, Shortness of breath, SOB with excertion, Wheezing, Hemoptysis, Pleuritic Pain, Sputum, Wheezing, Other Cardiovascular: No: Chest Pain, Palpitations, Orthopnea, Paroxysmal Noc. Dyspnea, Edema, Lt Headedness, Other Gastrointestinal: No: Nausea, Vomiting, Abdominal Pain, Diarrhea, Constipation, Melena, Hematochezia, Other Genitourinary: No Dysuria, No Frequency, No Incontinence, No Hematuria, No Retention, No Other Musculoskeletal: No: other, neck pain, shoulder pain, arm pain, back pain, hand pain, leg pain, foot pain Skin: No: Rash, Lesions, Jaundice, Bruising, Other Neurological: Weakness, Incoordination, Change in speech, Other (found down in hallway); No: Numbness, Confusion, Seizures Allergies: Coded Allergies: NO KNOWN ALLERGIES (Unverified , 06/19/22) Medications Current Medications Medications Dose Ordered Sig/Nikita Route Start Time Stop Time Status Last Admin Dose Admin Potassium Chloride 100 ml @ 50 mls/hr Q2H IV 04/26/25 08:45 04/26/25 14:44 04/26/25 08:57 50 MLS/HR Exam Vital Signs Vital Signs Date Time Temp Pulse Resp B/P (MAP) Pulse Ox O2 Delivery O2 Flow Rate FiO2 04/26/25 10:52 74 14 87/70 (76) 97 04/26/25 07:52 97.4 97.4 General Appearance: Oriented X3, Other (Drowsy) HEENT: Atraumatic, PERRLA Respiratory: Other (Diminished breath sounds) Cardiovascular: Regular rate, Normal S1, Normal S2 Abdominal: Normal bowel sounds, Soft, No tenderness, No hepatospenomegaly Extremities: No clubbing, No cyanosis, No edema, Normal pulses Skin: No rashes, No breakdown, No significant lesion Neuro: Normal speech, Other (generalized weakness) Psych/Mental Status: Mental status NL, Mood NL Labs/Xrays Labs Test 04/26/25 09:48 04/26/25 06:50 Range/Units Troponin I High Sensitivity 58 *H </=54 ng/L White Blood Count 8.0 4.4-10.8 10^3/uL Red Blood Count 3.56 L 4.5-5.90 10^6/uL Hemoglobin 12.2 L 13.5-17.5 g/dL Hematocrit 35.9 L 41.0-53.0 % Mean Corpuscular Volume 100.9 H 80.0-100.0 fL Mean Corpuscular Hemoglobin 34.3 H 28.0-32.0 pg Mean Corpuscular Hemoglobin Concent 34.0 32.0-36.0 g/dL Red Cell Distribution Width 16.9 H 11.8-14.3 % Platelet Count 180 140-450 10^3/uL Mean Platelet Volume 9.8 6.9-10.8 fL Neutrophils (%) (Auto) 69.7 37.0-80.0 % Lymphocytes (%) (Auto) 19.0 10.0-50.0 % Monocytes (%) (Auto) 10.6 0.0-12.0 % Eosinophils (%) (Auto) 0.1 0.0-7.0 % Basophils (%) (Auto) 0.6 0.0-2.0 % Neutrophils # (Auto) 5.6 1.6-8.6 10 ^3/uL Lymphocytes # (Auto) 1.5 0.4-5.4 10 ^3/uL Monocytes # (Auto) 0.8 0-1.3 10 ^3/uL Eosinophils # (Auto) 0 0-0.8 10 ^3/uL Basophils # (Auto) 0.1 0-0.2 10 ^3/uL Nucleated Red Blood Cells 0.2 % Sodium Level 132 L 136-145 mmol/L Potassium Level 2.6 L 3.5-5.1 mmol/L Chloride Level 87 L 98-107 mmol/L Carbon Dioxide Level 32 H 20-31 mmol/L Anion Gap 13 5-15 Blood Urea Nitrogen 23 9-23 mg/dL Creatinine 1.63 H 0.700-1.30 mg/dL Glomerular Filtration Rate Calc 55 >90 mL/min BUN/Creatinine Ratio 14.1 10.0-20.0 Serum Glucose 112 H 74-106 mg/dL Calcium Level 8.1 L 8.7-10.4 mg/dL Plasma/Serum Blood Alcohol 283.2 H <10 mg/dL TECHNIQUE: Single AP portable chest radiograph was obtained. FINDINGS: Lungs: Mild perihilar interstitial opacities. Cardiac: Marked cardiomegaly. Similar in appearance compared to the prior exam. Pulmonary vasculature: Prominence of the pulmonary vasculature. Mediastinum/shara: Unremarkable. Bones: No acute osseous abnormality identified. Other: No other significant findings. IMPRESSION: Findings consistent with pulmonary vascular congestion in the appropriate clini ginny setting as described above. SEPSIS Sepsis Screen Date sepsis recognized/suspect: Apr 26, 2025 Time Sepsis recognized/suspect: 0752 Recent Procedure: Yes On Antibiotic Therapy: No Respiratory Rate >20: No Heart Rate >90: No Temp<36 C (96.8 F) or >38.3 C: No SBP <90 or MAP <65 mmHG: No New Acute Mental Status Change: No Is the patient on CPAP, BIPAP,: No Physician Orders Head Without Contrast (04/26/25 06:35) Chest Portable (04/26/25 06:35) Potassium Chl 20meq/100ml (04/26/25 08:45) Admit (04/26/25 11:02) Code Status (04/26/25 11:02) Hydrocodone-Acet 5/325mg Tab ([place] /32 (04/26/25 11:15) Ondansetron Hcl (Zofran) (04/26/25 11:15) Docusate Sodium Capsule (Colace Capsule) (04/26/25 11:15) Fall Risk Precautions In Place QSHIFT (04/26/25 11:02) Complete Blood Count (04/27/25 04:00) Comprehensive Metabolic Panel (04/27/25 04:00) Cardiac Diet-2gna,Lofat,Lochol (04/26/25 Lunch) Condition: Serious (04/26/25 11:02) Acetaminophen Tablet (Tylenol Tablet) (04/26/25 11:15) Vital Signs Date Time Temp Pulse Resp B/P (MAP) Pulse Ox O2 Delivery O2 Flow Rate FiO2 04/26/25 10:52 74 14 87/70 (76) 97 04/26/25 08:42 71 16 91/65 (74) 100 04/26/25 08:22 68 04/26/25 07:52 97.4 70 16 70/37 (48) 100 97.4 04/26/25 07:52 70 04/26/25 06:55 97.6 71 14 87/71 (76) 96 97.6 04/26/25 06:19 72 04/26/25 06:15 98.3 74 20 99/45 97 98.3 Laboratory Tests Test 04/26/25 06:50 White Blood Count 8.0 10^3/uL (4.4-10.8) Medications Medications Dose Ordered Sig/Nikita Route Start Time Stop Time Status Last Admin Dose Admin Ondansetron HCl 4 mg ONCE ONCE IV 04/26/25 10:45 04/26/25 10:46 DC 04/26/25 11:04 4 MG Potassium Chloride 100 ml @ 50 mls/hr Q2H IV 04/26/25 08:45 04/26/25 14:44 04/26/25 08:57 50 MLS/HR Sodium Chloride 1,000 ml @ 1,000 mls/hr Q1H ONCE IV 04/26/25 06:45 04/26/25 07:44 DC 04/26/25 06:56 1,000 MLS/HR Sodium Chloride 1,000 ml @ 1,000 mls/hr Q1H ONCE IV 04/26/25 07:30 04/26/25 08:29 DC 04/26/25 07:50 1,000 MLS/HR Assessment/Plan Assessment/Plan Assessment: Alcohol intoxication, Hypotension, Hypokalemia, Toxic metabolic encephalopathy, CHF, Plan: Admit to Med-Surg, IV hydration, Librium tapering dose, PRN IV Ativan, Banana bag x 1, PO supplements, CMP in am, Manage/Monitor electrolytes closely, Home medications held due to hypotension, Plan discussed with: Patient My Orders Orders - JAVI ACUNA Procedure Category Date Status Time Admit ADMIT 04/26/25 Verified 11:02 Code Status CODE 04/26/25 Verified 11:02 Hydrocodone-Acet PHA 04/26/25 Verified 5/325mg Tab ([place] 11:15 Ondansetron Hcl PHA 04/26/25 Verified (Zofran) 11:15 Docusate Sodium PHA 04/26/25 Verified Capsule (Colace 11:15 Fall Risk Precautions MARIA ISABEL 04/26/[address] 11:02 Complete Blood Count LAB 04/27/25 Verified 04:00 Comprehensive LAB 04/27/25 Verified Metabolic Panel 04:00 Cardiac DIET 04/26/25 Verified Diet-2gna,Lofat,Lochol Lunch Condition: Serious MARIA ISABEL 04/26/25 Verified 11:02 Acetaminophen Tablet PHA 04/26/25 Verified (Tylenol Tablet) 11:15 Date of Service: Apr 26, 2025 Billing Provider: JAVI ACUNA Common Visit Codes: [id number] INP/OBS CARE (MOD) JAVI ACUNA Apr 26, 2025 11:37
--- NOTE | 2025-04-26 12:27 | DVH ---
CT HEAD WITHOUT CONTRAST INDICATION: found down EXAM DATE: 04/26/2025 11:49 AM COMPARISON: CT HEAD WITHOUT CONTRAST on DOS: 08/13/23 TECHNIQUE: CT of the head without intravenous contrast. FINDINGS: There is no intracranial hemorrhage. There is no extra-axial fluid, mass, mass effect or midline shift. The ventricles are midline and normal in size. Basilar cisterns are patent. There are mild periventricular and subcortical white matter chronic microvascular ischemic changes. Mild global cerebral volume loss. The paranasal sinuses and mastoids are well-pneumatized. Imaged portion of the orbits are unremarkable. IMPRESSION: No intracranial hemorrhage or mass effect.
[2025-04-26] MEDS: LORazepam 2MG/ML-1ML VIAL IV PRN (12:44)
[2025-04-26] MEDS: FOLIC ACID 1 MG, MULTIPLE VITAMIN 10 ML, MAGNESIUM SULF SDV 50% 8 MEQ, THIAMINE INJ 100... INJ ONE (13:24)
[2025-04-26] MEDS: NOREPINEPHRINE 8 MG/250ML KIT 250 ML IV SCH (14:07)
[2025-04-26 19:20] VITALS: PULSE 77; RESP 18; O2SAT 94
[2025-04-27 02:38] LABS: Hematocrit 40.2 % (41.0-53.0); Hemoglobin 13.3 g/dL (13.5-17.5); Mean Corpuscular Hemoglobin 33.7 pg (28.0-32.0); Mean Corpuscular Volume 101.6 fL (80.0-100.0); Nucleated Red Blood Cells % 0.3 %
[2025-04-27 02:54] LABS: Albumin 3.6 g/dL (3.2-4.8); Anion Gap 11 (5-15); BUN/Creatinine Ratio 21.4 (10.0-20.0); Carbon Dioxide 29 mmol/L (20-31); Total Protein 6.8 g/dL (5.7-8.2)
[2025-04-27 02:58] LABS: Alanine Aminotransferase 93 U/L (7-40); Alkaline Phosphatase 155 U/L (46-116); Bilirubin, Total 2.4 mg/dL (0.2-1.0); Blood Urea Nitrogen 33 mg/dL (9-23); Calcium 8.2 mg/dL (8.7-10.4); Chloride 91 mmol/L (98-107); Glucose 129 mg/dL (74-106); Potassium 3.0 mmol/L (3.5-5.1); Sodium 131 mmol/L (136-145)
[2025-04-27 07:32] VITALS: PULSE 98; RESP 18; O2SAT 96
[2025-04-27] MEDS: FOLIC ACID 1 MG TAB PO SCH (10:11)
[2025-04-27] MEDS: THIAMINE HCL 100 MG TAB PO SCH (10:11)
[2025-04-27] MEDS: MULTIPLE VITAMIN TAB PO SCH (10:11)
[2025-04-27] MEDS: POTASSIUM EFFERVESENT TAB 25 MEQ PO ONE (10:13)
[2025-04-27] MEDS: HYDROcodone-ACET 5/325MG TAB PO PRN (10:37)
--- NOTE | 2025-04-27 14:09 | DVHPN2 ---
Subjective Patient denies any symptoms at this time Reviewed: Care Plan, H&P, Labs, Medications Changes from previous H/P or p: No Changes General: Per HPI Eyes: No Pain, No Vision change, No Conjunctivae inflammation, No Eyelid inflammation, No Other, No Redness ENT: No Ear pain, No Ear discharge, No Nose pain, No Nose discharge, No Nose congestion, No Mouth pain, No Mouth swelling, No Throat pain, No Throat swelling, No Other Cardiovascular: No Chest Pain, No Palpitations, No Orthopnea, No Paroxysmal Noc. Dyspnea, No Edema, No Lt Headedness, No Other Respiratory: No Cough, No Dry, No Shortness of breath, No SOB with excertion, No Wheezing, No Hemoptysis, No Pleuritic Pain, No Sputum, No Other Gastrointestinal: No Nausea, No Vomiting, No Abdominal Pain, No Diarrhea, No Constipation, No Melena, No Hematochezia, No Other Genitourinary: No Dysuria, No Frequency, No Incontinence, No Hematuria, No Retention, No Other Musculoskeletal: No other, No neck pain, No shoulder pain, No arm pain, No back pain, No hand pain, No leg pain, No foot pain Skin: No Rash, No Lesions, No Jaundice, No Bruising, No Other Objective Vitals Vital Signs Date Time Temp Pulse Resp B/P (MAP) Pulse Ox O2 Delivery O2 Flow Rate FiO2 04/27/25 13:00 103 18 81/10 (33) 96 04/27/25 08:45 97.5 97.5 04/27/25 07:32 Nasal Cannula* 2 28 Intake/Output Intake and Output 04/27/25 07:00 Intake Total 3363.438 ml Output Total 350 ml Balance 3013.438 ml Intake Oral 480 ml IV Total 2883.438 ml Output Urine Total 350 ml General Appearance: Alert, Oriented X3, Cooperative, No acute distress HEENT: Atraumatic, PERRLA Lungs: Clear to auscultation, Normal air movement Cardiovascular: Normal S1, Normal S2 Abdomen: Normal bowel sounds, Soft, No tenderness, No hepatospenomegaly, No masses Musculoskeletal: Normal sensory function, Normal motor function Neuro: Normal gait, Normal speech Skin: Dry, Intact Psych/Mental Status: Mental status NL, Mood NL Medications Current Medications Medications Dose Ordered Sig/Nikita Route Start Time Stop Time Status Last Admin Dose Admin Acetaminophen/ Hydrocodone Bitart 1 tab Q4HP PRN PO 04/26/25 11:15 04/27/25 10:37 1 TAB Ondansetron HCl 4 mg Q4HP PRN IV 04/26/25 11:15 Docusate Sodium 100 mg BIDPRN PRN PO 04/26/25 11:15 Acetaminophen 650 mg Q6HP PRN PO 04/26/25 11:15 Lorazepam 1 mg Q1HP PRN IV 04/26/25 11:15 04/27/25 04:48 1 MG Multivitamins 1 tab DAILY PO 04/27/25 10:00 04/27/25 10:11 1 TAB Thiamine HCl 100 mg DAILY PO 04/27/25 10:00 04/27/25 10:11 100 MG Folic Acid 1 mg DAILY PO 04/27/25 10:00 04/27/25 10:11 1 MG Chlordiazepoxide HCl 50 mg Q12HR PO 04/27/25 10:00 04/27/25 22:01 04/27/25 10:12 50 MG Chlordiazepoxide HCl 25 mg Q12HR PO 04/28/25 10:00 04/28/25 22:01 Chlordiazepoxide HCl 25 mg QAM PO 04/29/25 07:00 04/29/25 07:01 Norepinephrine Bitartrate 250 ml @ 3.75 mls/hr Q24H IV 04/26/25 13:45 04/27/25 00:13 30 MLS/HR Laboratory Results Laboratory Tests 04/27/25 02:10 Chemistry Test 04/27/25 02:10 Albumin 3.6 g/dL (3.2-4.8) Calcium Level 8.2 mg/dL (8.7-10.4) L Total Protein 6.8 g/dL (5.7-8.2) LFT Test 04/27/25 02:10 Alanine Aminotransferase (ALT) 93 U/L (7-40) H Alkaline Phosphatase 155 U/L (46-116) H Aspartate Amino Transferase (AST) 175 U/L (13-40) H Total Bilirubin 2.4 mg/dL (0.2-1.0) H Labs and/or images reviewed: Labs reviewed by me Assessment/Plan Assessment/Plan Impression: -syncope -shock, multifocal with low ejection fraction/cardiogenic, heart failure regimen -alcoholism -early alcohol withdrawal symptoms -HFrEF with ejection fraction 15% -mitral valve regurgitation, status post mitral valve clip -obesity -transaminitis, 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 Hold guideline directed medical therapy at this time -start p.o. Bumex 1 mg b.i.d. -echocardiogram -potassium replacement -continue Librium 25 mg q.6 hours -MVI, folic acid -repeat labs in a.m. -transfer to telemetry floor Total time spent with patient discussing and formulating plan of care: 35 minutes. This medical document was created using an electronic medical record system with [employer] dictation system. Although this document has been carefully reviewed, there may still be some phonetic and typographical errors. These areas are purely typographical due to imperfections of the software programs, and do not reflect any compromise in the patient's medical care. Plan discussed with: Patient, Other (RN) My Orders Orders - RENU PHILIPPE NP Procedure Category Date Status Time Chlordiazepoxide Hcl PHA 04/27/25 Verified Capsule (Librium Ca 18:00 Comprehensive LAB 04/27/25 Verified Metabolic Panel 14:00 Bumetanide Tablet PHA 04/27/25 Verified (Bumex Tablet) 18:00 Transfer Orders XFER 04/27/25 Verified 14:00 Date of Service: Apr 27, 2025 Billing Provider: RENU PHILIPPE NP Common Visit Codes: [id number] INP/OBS CARE(HIGH) RENU PHILIPPE NP Apr 27, 2025 14:09
[2025-04-27 14:39] LABS: Albumin 3.4 g/dL (3.2-4.8); Anion Gap 8 (5-15); BUN/Creatinine Ratio 19.3 (10.0-20.0); Glucose 89 mg/dL (74-106); Total Protein 6.4 g/dL (5.7-8.2)
[2025-04-27 14:40] LABS: Alanine Aminotransferase 76 U/L (7-40); Alkaline Phosphatase 141 U/L (46-116); Bilirubin, Total 2.4 mg/dL (0.2-1.0); Blood Urea Nitrogen 23 mg/dL (9-23); Calcium 8.3 mg/dL (8.7-10.4); Carbon Dioxide 32 mmol/L (20-31); Chloride 93 mmol/L (98-107); Potassium 3.4 mmol/L (3.5-5.1); Sodium 133 mmol/L (136-145)
[2025-04-27 19:10] VITALS: BP 128/86; PULSE 95; RESP 18; TEMP 99; O2SAT 97
[2025-04-27 19:30] VITALS: O2SAT 98
[2025-04-27] MEDS ORDERED: DAPA1TAB4 PO (19:54)
[2025-04-27 20:00] VITALS: PULSE 97
[2025-04-27 21:00] VITALS: BP 145/73; PULSE 96; RESP 18; TEMP 99.2; O2SAT 99
[2025-04-27] MEDS: BUMETANIDE 1 MG TAB PO SCH (22:08)
[2025-04-27] MEDS: POTASSIUM CHL 20 Meq TABLET PO ONE (22:08)
[2025-04-28] VITALS (8 sets, daily range): BP systolic 109–126; BP diastolic 73–98; PULSE 93–106; RESP 16–19; TEMP 97.5–98.4; O2SAT 93–98
--- NOTE | 2025-04-28 09:04 | DVHPN2 ---
Subjective Patient denies any symptoms at this time Reviewed: Care Plan, H&P, Labs, Medications Changes from previous H/P or p: No Changes General: Per HPI Eyes: No Pain, No Vision change, No Conjunctivae inflammation, No Eyelid inflammation, No Other, No Redness ENT: No Ear pain, No Ear discharge, No Nose pain, No Nose discharge, No Nose congestion, No Mouth pain, No Mouth swelling, No Throat pain, No Throat swelling, No Other Cardiovascular: No Chest Pain, No Palpitations, No Orthopnea, No Paroxysmal Noc. Dyspnea, No Edema, No Lt Headedness, No Other Respiratory: No Cough, No Dry, No Shortness of breath, No SOB with excertion, No Wheezing, No Hemoptysis, No Pleuritic Pain, No Sputum, No Other Gastrointestinal: No Nausea, No Vomiting, No Abdominal Pain, No Diarrhea, No Constipation, No Melena, No Hematochezia, No Other Genitourinary: No Dysuria, No Frequency, No Incontinence, No Hematuria, No Retention, No Other Musculoskeletal: No other, No neck pain, No shoulder pain, No arm pain, No back pain, No hand pain, No leg pain, No foot pain Skin: No Rash, No Lesions, No Jaundice, No Bruising, No Other Objective Vitals Vital Signs Date Time Temp Pulse Resp B/P (MAP) Pulse Ox O2 Delivery O2 Flow Rate FiO2 04/28/25 05:12 124/98 04/28/25 05:00 98.2 95 16 94 98.2 04/27/25 20:00 Nasal Cannula* 2 28 Intake/Output Intake and Output 04/28/25 07:00 Intake Total 1600 ml Output Total 3200 ml Balance -1600 ml Intake Oral 1600 ml Output Urine Total 3200 ml General Appearance: Alert, Oriented X3, Cooperative, No acute distress HEENT: Atraumatic, PERRLA Lungs: Clear to auscultation, Normal air movement Cardiovascular: Normal S1, Normal S2 Abdomen: Normal bowel sounds, Soft, No tenderness, No hepatospenomegaly, No masses Musculoskeletal: Normal sensory function, Normal motor function Neuro: Normal gait, Normal speech Skin: Dry, Intact Psych/Mental Status: Mental status NL, Mood NL Medications Current Medications Medications Dose Ordered Sig/Nikita Route Start Time Stop Time Status Last Admin Dose Admin Acetaminophen/ Hydrocodone Bitart 1 tab Q4HP PRN PO 04/26/25 11:15 04/27/25 20:12 Ondansetron HCl 4 mg Q4HP PRN IV 04/26/25 11:15 Docusate Sodium 100 mg BIDPRN PRN PO 04/26/25 11:15 Acetaminophen 650 mg Q6HP PRN PO 04/26/25 11:15 Lorazepam 1 mg Q1HP PRN IV 04/26/25 11:15 04/27/25 04:48 Multivitamins 1 tab DAILY PO 04/27/25 10:00 04/27/25 10:11 Thiamine HCl 100 mg DAILY PO 04/27/25 10:00 04/27/25 10:11 Folic Acid 1 mg DAILY PO 04/27/25 10:00 04/27/25 10:11 Chlordiazepoxide HCl 25 mg Q6HR PO 04/27/25 18:00 04/28/25 05:12 Bumetanide 1 mg BIDD PO 04/27/25 18:00 04/28/25 05:12 Carvedilol 3.125 mg Q12HR PO 04/28/25 10:00 UNV Magnesium Oxide 400 mg DAILY PO 04/28/25 10:00 UNV Sacubitril/ Valsartan 0.5 tab BID PO 04/28/25 10:00 UNV Laboratory Results Laboratory Tests 04/27/25 02:10 04/27/25 14:05 Chemistry Test 04/27/25 14:05 Albumin 3.4 g/dL (3.2-4.8) Calcium Level 8.3 mg/dL (8.7-10.4) L Magnesium Level 1.6 mg/dL (1.6-2.6) Total Protein 6.4 g/dL (5.7-8.2) LFT Test 04/27/25 14:05 Alanine Aminotransferase (ALT) 76 U/L (7-40) H Alkaline Phosphatase 141 U/L (46-116) H Aspartate Amino Transferase (AST) 119 U/L (13-40) H Total Bilirubin 2.4 mg/dL (0.2-1.0) H Labs and/or images reviewed: Labs reviewed by me, Image(s) reviewed by me Assessment/Plan Assessment/Plan Impression: -syncope -shock, multifocal with low ejection fraction/cardiogenic, heart failure regimen -alcoholism -early alcohol withdrawal symptoms -HFrEF with ejection fraction 15% -mitral valve regurgitation, status post mitral valve clip -obesity -transaminitis, probably cardio hepatic syndrome/acute alcohol intake -CKD stage IIIB -hyponatremia -hypokalemia Plan: Events: No events overnight. Blood pressure improved. Patient reports that withdrawal symptoms have improved. -start guideline directed medical therapy with lower dose beta-codey and VINNY inhibitor -echocardiogram: Pending -K and Mag replacement -continue Librium 25 mg q.6 hours -MVI, folic acid -continue IV diuresis Total time spent with patient discussing and formulating plan of care: 35 minutes. This medical document was created using an electronic medical record system with [employer] dictation system. Although this document has been carefully reviewed, there may still be some phonetic and typographical errors. These areas are purely typographical due to imperfections of the software programs, and do not reflect any compromise in the patient's medical care. Plan discussed with: Patient, Other (RN) My Orders Orders - RENU PHILIPPE NP Procedure Category Date Status Time Chlordiazepoxide Hcl PHA 04/27/25 In Process Capsule (Librium Ca 18:00 Bumetanide Tablet PHA 04/27/25 In Process (Bumex Tablet) 18:00 Transfer Orders XFER 04/27/25 Transmitted 14:00 Communication Order ORDERS 04/27/25 Transmitted 14:02 Transfer Orders XFER 04/27/25 Transmitted 16:12 * Entry Level Buyer CONS 04/27/25 Transmitted Consult 19:57 Echo 2d Mode Cardiac US 04/28/25 Logged DOP 14:07 Carvedilol Tablet PHA 04/28/25 Logged (Coreg Tablet) 10:00 Magnesium Oxide PHA 04/28/25 Logged Tablet (Mag-Ox Tablet) 10:00 Sacubitril-Valsartan PHA 04/28/25 Logged (Entresto 24-26 Mg 10:00 Potassium LAB 04/28/25 Logged 08:57 Magnesium LAB 04/28/25 Logged 08:57 Chest Xray 1 View XY 04/28/25 Logged 08:57 Date of Service: Apr 28, 2025 Billing Provider: RENU PHILIPPE NP Common Visit Codes: [id number] INP/OBS CARE(HIGH) RENU PHILIPPE NP Apr 28, 2025 09:03
[2025-04-28] MEDS: CARVEDILOL 3.125 MG TAB PO SCH (09:48)
[2025-04-28] MEDS: SACUBITRIL-VALSARTAN 24mg/26mg TAB PO SCH (09:49)
[2025-04-28] MEDS: MAGNESIUM OXIDE 400 MG TAB PO SCH (09:50)
[2025-04-28 10:24] LABS: Potassium 3.1 mmol/L (3.5-5.1)
[2025-04-28 10:33] LABS: Magnesium 1.1 mg/dL (1.6-2.6)
--- NOTE | 2025-04-28 12:22 | DVH ---
CHEST RADIOGRAPH INDICATION: chf TECHNIQUE: Single AP portable chest radiograph was obtained. COMPARISON: XY CHEST PORTABLE on DOS: 04/26/25, XY CHEST PORTABLE on DOS: 10/09/24, XY CHEST TWO VIEWS ROUTINE on DOS: 09/24/24, XY CHEST XRAY 1 VIEW on DOS: 04/24/23, XY CHEST PORTABLE on DOS: 04/23/23, XY CHEST PORTABLE on DOS: 04/26/25 FINDINGS: Lungs: Mild perihilar interstitial opacities. Cardiac: Marked cardiomegaly. Similar in appearance compared to the prior exam. Pulmonary vasculature: Prominence of the pulmonary vasculature. Mediastinum/shara: Unremarkable. Bones: No acute osseous abnormality identified. Other: No other significant findings. IMPRESSION: Findings consistent with pulmonary vascular congestion in the appropriate clinical setting as described above.
[2025-04-29] VITALS (8 sets, daily range): BP systolic 99–125; BP diastolic 70–82; PULSE 93–102; RESP 18–21; TEMP 97.5–99; O2SAT 94–100
[2025-04-29] MEDS: POTASSIUM EFFERVESENT TAB 25 MEQ PO SCH (10:15)
[2025-04-29] MEDS: MAGNESIUM SULFATE 1GM/100ML 100 ML IV SCH (10:18)
--- NOTE | 2025-04-29 12:58 | DVHPN2 ---
Subjective Patient denies any symptoms at this time Reviewed: Care Plan, H&P, Labs, Medications Changes from previous H/P or p: No Changes General: Per HPI Eyes: No Pain, No Vision change, No Conjunctivae inflammation, No Eyelid inflammation, No Other, No Redness ENT: No Ear pain, No Ear discharge, No Nose pain, No Nose discharge, No Nose congestion, No Mouth pain, No Mouth swelling, No Throat pain, No Throat swelling, No Other Cardiovascular: No Chest Pain, No Palpitations, No Orthopnea, No Paroxysmal Noc. Dyspnea, No Edema, No Lt Headedness, No Other Respiratory: No Cough, No Dry, No Shortness of breath, No SOB with excertion, No Wheezing, No Hemoptysis, No Pleuritic Pain, No Sputum, No Other Gastrointestinal: No Nausea, No Vomiting, No Abdominal Pain, No Diarrhea, No Constipation, No Melena, No Hematochezia, No Other Genitourinary: No Dysuria, No Frequency, No Incontinence, No Hematuria, No Retention, No Other Musculoskeletal: No other, No neck pain, No shoulder pain, No arm pain, No back pain, No hand pain, No leg pain, No foot pain Skin: No Rash, No Lesions, No Jaundice, No Bruising, No Other Objective Vitals Vital Signs Date Time Temp Pulse Resp B/P (MAP) Pulse Ox O2 Delivery O2 Flow Rate FiO2 04/29/25 09:46 95 107/73 04/29/25 09:00 98.4 18 97 98.4 04/29/25 08:00 Room Air* 0 21 Intake/Output Intake and Output 04/29/25 07:00 Intake Total 2872 ml Output Total 2425 ml Balance 447 ml Intake Oral 2872 ml Output Urine Total 2425 ml General Appearance: Alert, Oriented X3, Cooperative, No acute distress HEENT: Atraumatic, PERRLA Lungs: Clear to auscultation, Normal air movement Cardiovascular: Normal S1, Normal S2 Abdomen: Normal bowel sounds, Soft, No tenderness, No hepatospenomegaly, No masses Musculoskeletal: Normal sensory function, Normal motor function Neuro: Normal gait, Normal speech Skin: Dry, Intact Psych/Mental Status: Mental status NL, Mood NL Medications Current Medications Medications Dose Ordered Sig/Nikita Route Start Time Stop Time Status Last Admin Dose Admin Acetaminophen/ Hydrocodone Bitart 1 tab Q4HP PRN PO 04/26/25 11:15 04/29/25 06:08 1 TAB Ondansetron HCl 4 mg Q4HP PRN IV 04/26/25 11:15 Docusate Sodium 100 mg BIDPRN PRN PO 04/26/25 11:15 Acetaminophen 650 mg Q6HP PRN PO 04/26/25 11:15 Lorazepam 1 mg Q1HP PRN IV 04/26/25 11:15 04/27/25 04:48 1 MG Multivitamins 1 tab DAILY PO 04/27/25 10:00 04/29/25 08:45 1 TAB Thiamine HCl 100 mg DAILY PO 04/27/25 10:00 04/29/25 09:56 100 MG Folic Acid 1 mg DAILY PO 04/27/25 10:00 04/29/25 08:45 1 MG Bumetanide 1 mg BIDD PO 04/27/25 18:00 04/28/25 17:00 1 MG Carvedilol 3.125 mg Q12HR PO 04/28/25 10:00 04/29/25 08:46 3.125 MG Magnesium Oxide 400 mg DAILY PO 04/28/25 10:00 04/29/25 08:45 400 MG Sacubitril/ Valsartan 0.5 tab BID PO 04/28/25 10:00 04/29/25 08:46 0.5 TAB Chlordiazepoxide HCl 25 mg Q8HR PO 04/29/25 14:00 04/29/25 12:43 25 MG Magnesium Sulfate/ Dextrose 100 ml @ 100 mls/hr Q1HR IV 04/29/25 10:00 04/29/25 12:59 04/29/25 12:36 100 MLS/HR Potassium Bicarbonate 50 meq BID PO 04/29/25 10:00 04/29/25 10:15 50 MEQ Laboratory Results Laboratory Tests 04/27/25 02:10 04/27/25 14:05 04/28/25 09:58 Labs and/or images reviewed: Labs reviewed by me, Image(s) reviewed by me Assessment/Plan Assessment/Plan Impression: -syncope -shock, multifocal with low ejection fraction/cardiogenic, heart failure regimen -alcoholism -early alcohol withdrawal symptoms -HFrEF with ejection fraction 15% -mitral valve regurgitation, status post mitral valve clip -obesity -transaminitis, probably cardio hepatic syndrome/acute alcohol intake -CKD stage IIIB -hyponatremia -hypokalemia Plan: Events: No events overnight. Potassium 3.4 magnesium 1.1. Replete -continue guideline directed medical therapy at current dosage. Blood pressure continues to be marginal -echocardiogram: Pending -K and Mag replacement -change Librium to 25 mg q.8 hours -MVI, folic acid -repeat labs in a.m. Total time spent with patient discussing and formulating plan of care: 35 minutes. This medical document was created using an electronic medical record system with [employer] dictation system. Although this document has been carefully reviewed, there may still be some phonetic and typographical errors. These areas are purely typographical due to imperfections of the software programs, and do not reflect any compromise in the patient's medical care. Plan discussed with: Patient, Other (RN) My Orders Orders - RENU PHILIPPE NP Procedure Category Date Status Time Chlordiazepoxide Hcl PHA 04/29/25 In Process Capsule (Librium Ca 14:00 Magnesium Sulfate PHA 04/29/25 In Process 1gm/100ml 10:00 Potassium Effervesent PHA 04/29/25 In Process Tab (Klor-Con/Ef) 10:00 Potassium LAB 04/29/25 Logged 15:00 Magnesium LAB 04/29/25 Logged 15:00 Basic Metabolic Panel LAB 04/30/25 Verified 04:00 Magnesium LAB 04/30/25 Verified 04:00 Date of Service: Apr 29, 2025 Billing Provider: RENU PHILIPPE NP Common Visit Codes: [id number] INP/OBS CARE(HIGH) RENU PHILIPPE NP Apr 29, 2025 12:58
[2025-04-29 15:51] LABS: Potassium 3.7 mmol/L (3.5-5.1)
[2025-04-29 15:58] LABS: Magnesium 2.0 mg/dL (1.6-2.6)
--- NOTE | 2025-04-29 17:05 | DVHSR ---
APPROVED REPORT EXAM: Two-dimensional and M-mode echocardiogram with Doppler and color Doppler. Blood Pressure: 124/98 mmHg INDICATION ACUTE SYSTOLIC HEART FAILURE Surgery/Intervention MITRAL CLIP RISK FACTORS Obesity: Height: 6'1, Weight: 380 DIMENSIONS LVDd 7.5 (3.8-5.7cm) LA (2D) 6.3 (1.9-4.0cm) Aortic Root 3.4 (2.0-3.7cm) LVDs 7.3 (2.5-4.0cm) LA (MM) (1.9-4.0cm) Aortic Cusp Exc 2.0 (1.5-2.0cm) EF (%) 10.0 (55-70%) Rt. Atrium 5.8 (1.9-4.0cm) Asc. Aorta cm IVSd 0.9 (0.7-1.1cm) RV (D) 5.7 (1.8-2.4cm) PWd 1.3 (0.7-1.1cm) Mitral Valve Mitral Mitral Stenosis E wave 1.35m/s MV Mean GR. 4mmHg A wave m/s MV Peak GR. 79mmHg E/A ratio 0.0 2D MVA cm2 Aortic Valve Aortic Valve Aortic Stenosis V1 0.49m/s AO Mean GR. 3mmHg V2 1.02m/s AO Peak GR. 4mmHg LVOT Diameter 2.5 (1.8-2.4cm) Doppler TORI 2.36cm2 Pulmonic Valve V2 0.83m/s Tricuspid Valve TR Velocity 2.78m/s RVSP 56mmHg Other Information Quality : Technically Limited Rhythm : Conclusion LVEF is severely reduced at 5-10%, global hypokinesis, severely dilated Right ventricle mildly mildly hypokinetic Severely dilated left atrium Mitral clip present, mild mitral regurgitation mild mitral stenosis Mild tricuspid regurgitation, moderate pulmonary hypertension RVSP 45-50
[2025-04-30 01:00] VITALS: BP 110/82; PULSE 97; RESP 20; TEMP 98.4; O2SAT 97
[2025-04-30 05:00] VITALS: BP 114/86; PULSE 97; RESP 20; TEMP 97.9; O2SAT 97
[2025-04-30 07:10] LABS: Anion Gap 8 (5-15); Calcium 8.8 mg/dL (8.7-10.4); Potassium 3.7 mmol/L (3.5-5.1)
[2025-04-30 07:16] LABS: BUN/Creatinine Ratio 12.6 (10.0-20.0); Blood Urea Nitrogen 14 mg/dL (9-23); Glucose 98 mg/dL (74-106)
[2025-04-30 07:17] LABS: Magnesium 1.7 mg/dL (1.6-2.6)
[2025-04-30 07:18] LABS: Carbon Dioxide 35 mmol/L (20-31); Chloride 91 mmol/L (98-107); Sodium 134 mmol/L (136-145)
[2025-04-30 07:49] VITALS: RESP 18
[2025-04-30 08:00] VITALS: PULSE 88
[2025-04-30 12:35] VITALS: BP 112/77; PULSE 96; RESP 16; TEMP 97.1; O2SAT 92
--- NOTE | 2025-04-30 13:22 | DVHDS2 ---
Discharge Summary Date of Admission Apr 26, 2025 at 11:02 Date of Discharge: Apr 30, 2025 Admitting Diagnosis Alcohol intoxication Labs/Diagnostic Data: Laboratory Results Test 04/30/25 05:59 04/27/25 14:05 04/27/25 02:10 04/26/25 09:48 Sodium Level 134 mmol/L (136-145) Potassium Level 3.7 mmol/L (3.5-5.1) Chloride Level 91 mmol/L (98-107) Carbon Dioxide Level 35 mmol/L (20-31) Anion Gap 8 (5-15) Blood Urea Nitrogen 14 mg/dL (9-23) Creatinine 1.11 mg/dL (0.700-1.30) Glomerular Filtration Rate Calc 87 mL/min (>90) BUN/Creatinine Ratio 12.6 (10.0-20.0) Serum Glucose 98 mg/dL (74-106) Calcium Level 8.8 mg/dL (8.7-10.4) Magnesium Level 1.7 mg/dL (1.6-2.6) Total Bilirubin 2.4 mg/dL (0.2-1.0) Aspartate Amino Transferase (AST) 119 U/L (13-40) Alanine Aminotransferase (ALT) 76 U/L (7-40) Alkaline Phosphatase 141 U/L (46-116) Total Protein 6.4 g/dL (5.7-8.2) Albumin 3.4 g/dL (3.2-4.8) White Blood Count 10.3 10^3/uL (4.4-10.8) Red Blood Count 3.96 10^6/uL (4.5-5.90) Hemoglobin 13.3 g/dL (13.5-17.5) Hematocrit 40.2 % (41.0-53.0) Mean Corpuscular Volume 101.6 fL (80.0-100.0) Mean Corpuscular Hemoglobin 33.7 pg (28.0-32.0) Mean Corpuscular Hemoglobin Concent 33.1 g/dL (32.0-36.0) Red Cell Distribution Width 16.9 % (11.8-14.3) Platelet Count 201 10^3/uL (140-450) Mean Platelet Volume 10.0 fL (6.9-10.8) Neutrophils (%) (Auto) 70.1 % (37.0-80.0) Lymphocytes (%) (Auto) 16.4 % (10.0-50.0) Monocytes (%) (Auto) 12.4 % (0.0-12.0) Eosinophils (%) (Auto) 0.5 % (0.0-7.0) Basophils (%) (Auto) 0.6 % (0.0-2.0) Neutrophils # (Auto) 7.2 10 ^3/uL (1.6-8.6) Lymphocytes # (Auto) 1.7 10 ^3/uL (0.4-5.4) Monocytes # (Auto) 1.3 10 ^3/uL (0-1.3) Eosinophils # (Auto) 0.1 10 ^3/uL (0-0.8) Basophils # (Auto) 0.1 10 ^3/uL (0-0.2) Nucleated Red Blood Cells 0.3 % Troponin I High Sensitivity 58 ng/L (</=54) Test 04/26/25 06:50 Plasma/Serum Blood Alcohol 283.2 mg/dL (<10) Other Laboratory Tests 04/30/25 05:59 04/27/25 02:10 Brief Hx & Hospital Course: History of Present Illness Ronnell Barreto is a 40-year-old male with past medical history of hypertension, and CHF, who was brought to the hospital by EMS due to having a syncopal event at home. Patient states he is a heavy daily drinker of liquor. He states it varies from a few shots to a lot more. Last night he was drinking. He states he woke up about 0400, took his medications, then went back to bed. He woke up to go the bathroom, but apparently had a syncopal episode. The next thing he remembered was waking up on the floor and his was on the phone with EMS. Patient has a history of severe CHF, he had a mitral clip in January of 2025, and is supposed to be having an AICD placed soon. He appears to be dry, will dry gentle IV hydration. He does take Bumex at home TID. Course of hospitalization: Patient was started on MVI, folic acid, thiamine. He was also started on Librium secondary to him reporting anxiety and tremors. Vasopressors were weaned off. Patient is guideline directed medical therapy was implemented at lower dosages given his hypotension. Patient was also restarted on diuresis. Patient was also found to be hypokalemic as well as hypomagnesemic, for which she had appropriate replete. Repeat echocardiogram reveals ejection fraction of 5% to 10%. Long discussion was made with the patient regarding lifestyle modification for weight loss, alcohol cessation, and dietary restrictions. Apparently, he has been spoken to by scouring machine tender in the past regarding these topics as well as possible need for heart transplant. He is also in the works and receiving ICD placement by Cardiology as an outpatient. Patient will be discharged home and be continued on all of his home guideline directed medical therapy that has been prescribed to him. He will continue with his current diuretics. Patient is also instructed to stop drinking alcohol and at this time is refusing any resources at this time with the hospital may provide. Physical examination General: Alert and Oriented x3. No acute distress. Well-nourished. Eyes: EOMI. Anicteric. HENT: Moist mucous membranes. Lungs: Clear to auscultation bilaterally. No accessory muscle use. Cardiovascular: Regular rate and rhythm. No murmur. No JVD. Abdomen: Soft, non-tender and non-distended. No palpable masses. Extremities: No edema. Non-tender. Skin: No rashes or lesions. Warm. Neurologic: No focal neurological deficits. CN II-XII grossly intact, but not individually tested. Psychiatric: Cooperative. Appropriate mood and affect. Total time spent with patient discussing and formulating plan of care: 35 minutes. This medical document was created using an electronic medical record system with [employer] dictation system. Although this document has been carefully reviewed, there may still be some phonetic and typographical errors. These areas are purely typographical due to imperfections of the software programs, and do not reflect any compromise in the patient's medical care. Condition at Discharge: Poor Final Diagnosis/Problems List Acute on chronic decompensated systolic and diastolic heart failure -syncope -shock, multifocal with low ejection fraction/cardiogenic, heart failure regimen -alcoholism -early alcohol withdrawal symptoms -HFrEF with ejection fraction 15% -mitral valve regurgitation, status post mitral valve clip -obesity -transaminitis, probably cardio hepatic syndrome/acute alcohol intake -CKD stage IIIB -hyponatremia -hypokalemia Discharge Disposition: Home Discharge Instruct/Medications Diet: Cardiac 2g Na,low cholest Diet comment: Fluid restriction of 1200 mL per day Activity: No Restrictions, As Tolerated Follow Up/Referral: Follow up with scouring machine tender, Dr. May in one week Medications: Continue all previous home medications Scheduled Bumetanide (Bumetanide), 1 TAB PO QPM, (Reported) Bumetanide (Bumetanide), 1 TAB PO QAM, (Reported) Carvedilol (Coreg), 1 TAB PO BID Folic Acid (Folic Acid), 1 MG PO DAILY Lisinopril (Lisinopril), 1 TAB PO DAILY Metolazone (Metolazone), 2.5 MG PO DAILY Pantoprazole Sodium Sesquihydr (Pantoprazole Sodium), 40 MG PO BID Potassium Chloride (Potassium Chloride Cr), 1 TAB PO DAILY, (Reported) Sacubitril-Valsartan (Entresto 24-26 mg), 1 TAB PO BID, (Reported) Spironolactone (Spironolactone), 2 TAB PO BID, (Reported) Sucralfate (Sucralfate), 1 GM PO QID Thiamine Hcl (Thiamine Hcl), 1 TAB PO DAILY Miscellaneous Medications Dapagliflozin Propanediol (Farxiga), 10 MG PO, (Reported) 36 Discharge Statement: "Patient was advised to return to the ER or call 911 if any headaches, dizziness, shortness of breath, chest pain, abdominal pain, bleeding, fevers, or worsening of medical condition. Patient was counseled about treatment plan, medications, possible side effects, patientverbalized understanding. All questions were answered to the best of my ability. This discharge took greater then 30 minutes in planning, reviewing documentation, counseling the patient, and discussing with other team members." ASSESSMENT ASSESSMENT Assessment Acute on chronic decompensated systolic and diastolic heart failure Date of Service: Apr 30, 2025 Billing Provider: RENU PHILIPPE NP Common Visit Codes: [id number] DISCH DAY >30min RENU PHILIPPE NP Apr 30, 2025 13:22
[2025-04-30 14:32] VITALS: BP 128/60; PULSE 92; TEMP 36.2
== END 2025-04-30 15:27 | disposition home or self-care (01) | DRG 312 ==
LOC: ER 06:15 → EDBD 06:15 → OVERFLOW 11:02 → EAST 04-27 18:47 → TELE-EAST 04-28 19:47
PROVIDERS: ADMIT Nurse Practitioner Acute Care; ATTEND Nurse Practitioner Acute Care
DX: R55 Syncope and collapse (principal); G92.8 Other toxic encephalopathy; I50.43 Acute on chronic combined systolic (congestive) and diastolic (congestive) heart failure; I13.0 Hypertensive heart and chronic kidney disease with heart failure and stage 1 through stage 4 chronic kidney disease, or unspecified chronic kidney disease; F10.239 Alcohol dependence with withdrawal, unspecified; E11.22 Type 2 diabetes mellitus with diabetic chronic kidney disease; E66.9 Obesity, unspecified; I34.0 Nonrheumatic mitral (valve) insufficiency; N18.32 Chronic kidney disease, stage 3b; E87.1 Hypo-osmolality and hyponatremia; Z68.42 Body mass index [BMI] 45.0-49.9, adult; E87.6 Hypokalemia; F10.229 Alcohol dependence with intoxication, unspecified; Y90.8 Blood alcohol level of 240 mg/100 ml or more
CPT/HCPCS: 36415; 70450; 71045; 80048; 80053; 80320; 83735; 84132; 84484; 85025; 93005; 93306; 96361; 96374; 99291; G0378; J2405; J3480